=== PATIENT | female | born 1960 | race Caucasian/White ===

== ENCOUNTER → 2018-10-06 14:25 | Outpatient (CLI) | payer OTHER, SELFPAY ==
--- NOTE | 2018-10-06 14:30 | XR_ITS ---
XR shoulder RT min 2V HISTORY: ITS.REASON: RT SHOULDER PAIN X 3WKS,NO INJURY ORDERING PHYSICIAN: Doug Montalvo MD PATIENT AGE: 57 years Comparison: None FINDINGS: No fracture or dislocation. No lytic or blastic change. There is normal mineralization. The joint spaces are well-preserved. No significant degenerative/arthritic changes. No erosive changes evident. IMPRESSION: Negative, no acute finding
== END ==
PROVIDERS: PCP Family Medicine; Visit Provider Family Medicine
DX: M25.511 Pain in right shoulder (principal)
CPT/HCPCS: 73030

== ENCOUNTER → 2018-11-05 15:19 | Outpatient (CLI) | payer OTHER, SELFPAY ==
--- NOTE | 2018-11-05 15:22 | CT_ITS ---
CT lung screening EXAM: CT LUNG LOW DOSE WO CONTRAST HISTORY: ITS.REASON: H/O NICOTINE DEPENDENCE ORDERING PHYSICIAN: Doug Montalvo MD PATIENT AGE: 57 years COMPARISON: none TECHNIQUE: The exam was performed on a GE Light Speed [address] scanner using 2.90 mGy CTDI. A low dose helical CT CHEST was performed on a multi-detector scanner. All CT scans at the facility use one or more dose reduction, viz: automated exposure control, ma/kV adjustment per patient size (including targeted exams where dose is matched to indication, i.e. head), or iterative reconstruction technique. The LDCT was performed in a facility that meets the criteria for the screening program. Data regarding this exam was submitted to ACR which is an approved registry. The order for this exam indicates that it came as a result of a lung cancer screening counseling shard decision-making visit that included all the elements required of such a visit including smoking cessation. The radiologist interpreting this exam meets the CMS criteria for the LDCT lung cancer screening program. The exam is reported using the Lung-RADS classification scale and reported to the ACR registry. NOTE: This study was performed for the specific purposes of lung cancer screening and is not an alternative to diagnostic chest CT. RADIATION DOSE: CTDI vol(CT dose Index-volume) = 2.90mG DLP (Dose Length Product) = 98.47 mGcm FINDINGS: There are multiple noncalcified nodules in both right and left lungs measuring 4 mm in the right upper lobe anteriorly, 3 mm right middle lobe anteriorly, 6 mm right lower lobe laterally 6 mm left lower lobe in the CP angle, 4 mm left lower lobe posteriorly, 4 mm left lower lobe posteriorly. There is fairly extensive centrilobular emphysema with COPD IMPRESSION: 1. Lung RADS Category: 3, probably benign 2. Other findings: COPD, centrilobular emphysema RECOMMENDATIONS: 6 monthd LDCT follow-up
--- NOTE | 2018-11-05 15:22 | MM_ITS ---
MM Dig screening mamm BI w/CAD ORDERING PHYSICIAN : Doug Montalvo MD PATIENT AGE: 57 years GENDER: Female COMPARISON: April 2010 bilateral mammogram. October 2004 film screen mammogram INDICATION: Routine screening. No hormones. No new complaints. Family history. Paternal grandmother with breast cancer TECHNIQUE: Standard CC and MLO images were obtained. R2 CAD reviewed. FINDINGS: Minimal residual fibroglandular elements in both breast with minor asymmetry . Slight regression of fibroglandular elements since 2009. No new dominant mass nor suspicious mass. No particularly suspicious calcifications. RIGHT BREAST:No significant new areas concern. Follow-up one year recommended. LEFT BREAST:No significant new areas of concern. Follow-up one year recommended Tiny faint grouped microcalcifications the lateral left breast, but these were actually seen in 2009 & have not changed significantly.- Can be followed.. IMPRESSION: No new areas of significant concern. .. Bilateral follow-up in one year recommended. BI-RADS Category: 2 Benign Finding(s) RECOMMENDED FOLLOW-UP: 1YR 1 YEAR FOLLOW-UP (A letter has been sent to the patient regarding results of the study.)
== END ==
PROVIDERS: PCP Family Medicine; Visit Provider Family Medicine
DX: Z12.2 Encounter for screening for malignant neoplasm of respiratory organs (principal); Z87.891 Personal history of nicotine dependence; Z12.31 Encounter for screening mammogram for malignant neoplasm of breast
CPT/HCPCS: 77067

== ENCOUNTER → 2020-04-11 13:19 | Outpatient (CLI) | payer OTHER, SELFPAY ==
--- NOTE | 2020-04-11 13:22 | MM_ITS ---
PROCEDURE: MM DIG SCREENING MAMM BI W/CAD Digital Breast Tomosynthesis Included CLINICAL INDICATION: SCREENING There is a history of breast cancer patient's paternal grandmother. COMPARISON: MG DIGMAMMDX MAMMOGRAM DX-[facility] HAND N/C from 11/28/2004 MG DMSB DIGITAL MAMM-SCREEN BILATERAL from 05/25/2010 MG DIG MAMM-SCREEN OMAYRA from 11/05/2018 TECHNIQUE: Standard CC and MLO images and 3D Tomosynthesis was obtained. R2 CAD reviewed. FINDINGS: The breasts are composed primarily of fat with mild to moderate scattered fibroglandular densities throughout each breast. There are couple of benign-appearing microcalcifications left breast. There is no suspicious lesion in either breast and no suspicious microcalcifications. IMPRESSION: Fibrofatty parenchyma with no suspicious lesions seen BI-RAD Category: 2 Benign Finding(s) FOLLOW-UP: 1YR 1 Year Follow-up (A letter has been sent to the patient regarding results of the study.) Dictated by: Dr. Maurizio Diaz MD 04/14/2020 12:34 Dr. Maurizio Diaz MD in [place] 04/14/2020 12:34
== END ==
PROVIDERS: PCP Family Medicine; Visit Provider Family Medicine
DX: Z12.31 Encounter for screening mammogram for malignant neoplasm of breast (principal)
CPT/HCPCS: 77063; 77067

== ENCOUNTER 2020-11-22 12:16 | Emergency (ER) | payer OTHER, SELFPAY ==
[2020-11-22 12:20] VITALS: BP 135/85; PULSE 82; RESP 18; TEMP 37.4; O2SAT 95; BMI 25.0
--- NOTE | 2020-11-22 12:34 | XR_ITS ---
PROCEDURE: XR RIBS RT 2V CLINICAL INDICATION: PAIN Right rib pain COMPARISON: No exams were available for comparison FINDINGS: Frontal view of the chest shows no acute finding. Three views of the right ribs show no obvious fracture, lytic change, or blastic change. There is no evidence of pneumothorax. There are degenerative changes in the lumbar spine and thoracic spine. A circular calcific density is present to the right of L3-L4 and could represent a gallstone. IMPRESSION: 1. Negative right ribs. 2. Possible cholelithiasis Dictated by: Roscoe Salinas MD 11/22/2020 12:55 Roscoe Salinas MD in [place] 11/22/2020 12:55
--- NOTE | 2020-11-22 12:37 | HMH.EDUTC ---
[facility] [place]: Rib pain Disposition: Home, Self-Care Condition on Discharge: Good Instructions: Acetaminophen (Alternative Therapy), Ibuprofen Additional Instructions: Make sure to follow up with Your Family Doctor for further evaluation and testing concerning possible gallstone seen on xray *Ibuprofen jesus 6 hours with meal as needed for pain/inflammation if your Doctor has told you that you can take it Over the counter Lidocaine patches may help with rib pain *Ice 20 minutes every 2 hours for the first 48 hours after the initial injury followed by moist heat every 20 minutes 3-4 times a day to affected area *Keep this area active, no movement leads to more stiffness, However take it easy and avoid heavy lifting pushing or pulling *Follow up with you family doctor if no improvement for further treatment Return if needed Make sure to be taking deep breaths and coughing if needed, may hold pillow over the area if your have pain this may help Straight to ER if any life threatening symptoms Referrals: Doug Montalvo MD [Primary Care Provider] - As needed Time of Disposition: 13:07 Medical Decision Making - Pedro Luis Inquiry Pt receiving controlled substance: No Pedro Luis was queried for this patient: No Vital Signs: 11/22/20 12:20 11/22/20 13:08 Temperature 99.3 F 99.3 F Temperature Source Oral Pulse Rate 82 Pulse Rate [Left Brachial] 82 Respiratory Rate 18 18 Blood Pressure 135/85 Blood Pressure [Left Arm] 135/85 Blood Pressure Mean [Left Arm] 101 Blood Pressure Source [Left Arm] Automatic Cuff Blood Pressure Position [Left Arm] Sitting 02 Sat by Pulse Oximetry 95 Oxygen Delivery Method Room Air - Radiology Data #1 Image(s): Chest (ribs right) Image Reviewed: Yes I have reviewed radiologist's interpretation 1. Negative right ribs. 2. Possible cholelithiasis [facility] [place] - General Stated complaint: rt side muscle pain Time Seen by Provider: 11/22/20 12:37 Mode of Arrival: Ambulatory Source of Information: Patient Limitations: No Limitations Description of Symptoms (Recalled from Triage Doc. 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 PATIENT WENT TO CATCH THE WOMAN AND FELT A PAIN TO HER RIGHT SIDE/RIBS. 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 Friday when elderly lady was falling out of her chair and she went to catch her States that she felt a sharp pain in her right ribs States that ever since she has been having pain in her ribs with movement and with deep breaths States that today she was still hurting so she came in - Related Data Home Medications Medication Instructions Recorded Confirmed Celecoxib [Celebrex 200mg cap] 200 mg PO DAILY 11/22/20 11/22/20 Fluoxetine HCl [Prozac] 40 mg PO DAILY 11/22/20 11/22/20 Rosuvastatin Calcium [Crestor 10mg 10 mg PO DAILY 11/22/20 11/22/20 Tablets] Allergies Allergy/AdvReac Type Severity Reaction Status Date / Time No Known Allergies Allergy Verified 03/05/18 14:27 - Worker's Comp Is this a Worker's Comp case?: No [facility] History - Hepatitis A Screen Drug use history?: No High risk sexual behaviors?: No History of sexually transmitted infection?: No Currently employed?: No Childcare worker?: No Do you have indoor plumbing?: Yes Do you have electricity?: Yes Attestation statement:: This patient has been screened for Hepatitis A risk factors. I have reviewed the patient's past medical history: Yes Laterality Cases: Bilateral: Tonsillectomy - Social History Smoking Status: Current every day smoker Tobacco Type: cig
[2020-11-22 13:08] VITALS: BP 135/85; PULSE 82; RESP 18; TEMP 37.4; O2SAT 95
== END 2020-11-22 13:11 | disposition home or self-care (01) ==
PROVIDERS: Emergency Provider Nurse Practitioner; PCP Family Medicine
DX: S20.211A Contusion of right front wall of thorax, initial encounter (principal); W50.0XXA Accidental hit or strike by another person, initial encounter; Y92.018 Other place in single-family (private) house as the place of occurrence of the external cause; F17.210 Nicotine dependence, cigarettes, uncomplicated
CPT/HCPCS: 71100; 99202; G0463

== ENCOUNTER 2021-03-14 10:19 | Emergency (ER) | payer OTHER, SELFPAY ==
[2021-03-14 10:28] VITALS: BP 143/98; PULSE 80; RESP 16; TEMP 36.7; O2SAT 98; BMI 25.0
[2021-03-14 10:33] VITALS: BP 143/98; PULSE 80; RESP 16; TEMP 36.6; O2SAT 98; BMI 25.1
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
[2021-03-14 11:10] VITALS: BP 143/98; PULSE 80; RESP 18; TEMP 36.6
== END 2021-03-14 11:21 | disposition home or self-care (01) ==
PROVIDERS: Emergency Provider Nurse Practitioner; PCP Family Medicine
DX: T22.111A Burn of first degree of right forearm, initial encounter (principal); X12.XXXA Contact with other hot fluids, initial encounter; Y92.010 Kitchen of single-family (private) house as the place of occurrence of the external cause; F17.210 Nicotine dependence, cigarettes, uncomplicated
CPT/HCPCS: 99202; G0463

== ENCOUNTER → 2021-04-03 12:48 | Outpatient (CLI) | payer OTHER, SELFPAY ==
--- NOTE | 2021-04-03 12:55 | XR_ITS ---
PROCEDURE: XR KNEE LT 3V CLINICAL INDICATION: LT KNEE PAIN COMPARISON: No exams were available for comparison FINDINGS: No fracture or dislocation. No lytic or blastic change. There is normal mineralization. Minimal osteoarthritic change medial compartment. Other findings:Vascular calcification of the distal SFA. IMPRESSION: Minimal osteoarthritic change medial compartment Dictated by: Roscoe Salinas MD 04/04/2021 14:00 Roscoe Salinas MD in [place] 04/04/2021 14:00
== END ==
PROVIDERS: PCP Family Medicine; Visit Provider Family Medicine
DX: M25.562 Pain in left knee (principal)
CPT/HCPCS: 73562

== ENCOUNTER → 2021-06-19 08:52 | Outpatient (CLI) | payer OTHER, SELFPAY | PROVIDERS: Visit Provider Nurse Practitioner | DX: Z20.822 Contact with and (suspected) exposure to COVID-19 (principal) | CPT/HCPCS: C9803; U0003; U0005 ==

== ENCOUNTER 2021-07-02 11:47 | Emergency (ER) | payer OTHER, SELFPAY ==
[2021-07-02 13:16] VITALS: BP 155/92; PULSE 92; RESP 19; TEMP 36.9; O2SAT 98; BMI 25.0
[2021-07-02 13:25] LABS: UTC Influenza A Antigen Negative (Negative)
[2021-07-02 13:26] LABS: UTC Influenza B Antigen Negative (Negative)
[2021-07-02 13:29] LABS: Strep Scrn Group A (Rapid) Negative (Negative)
--- NOTE | 2021-07-02 13:48 | HMH.EDUTC ---
[facility] [place]ression: Exposure to COVID-19 virus Sinusitis Qualifiers: Sinusitis location: unspecified location Chronicity: acute Recurrence: non-recurrent Qualified Code(s): J01.90 - Acute sinusitis, unspecified Disposition: Home, Self-Care Condition on Discharge: Good Instructions: DI for Sinusitis, DI for COVID-19 (Suspected or Confirmed ), Preventing the Spread of Coronavirus Discharge Instructions Additional Instructions: Drink plenty of fluids. Take tylenol or ibuprofen for pain or fever. Take the medications as directed. Follow up with your regular doctor. GO TO THE ER FOR ANY WORSENING SYMPTOMS Quarantine until you know the results of your covid-19 test. Notify your school or workplace of your results and follow their instructions regarding return to work/school. Don't start the oral steroids until tomorrow, since you had the shot here today. The cough medication (promethazine dm) will make you drowsy, so don't drive or operate heavy machinery after taking it. Prescriptions: Promethazine/Dextromethorphan [Promethazine-Dm Syrup] 5 ml PO Q6HP PRN #240 ml PRN Reason: Cough Transmission Status: Received by [facility] Amoxicillin/Potassium Clav [Augmentin 875-125 Tablet] 1 tab PO Q12H 10 Days #20 tab Transmission Status: Received by [facility] predniSONE [Deltasone 10mg tablet] 10 mg PO DAILY 9 Days #21 tab Transmission Status: Received by [facility] Referrals: Doug Montalvo MD [Primary Care Provider] - Forms: Work/School Release Time of Disposition: 14:30 Medical Decision Making - Medical Records Medical records reviewed: No: I reviewed the patient's medical records. - Pedro Luis Inquiry Pt receiving controlled substance: No Vital Signs: 07/02/21 13:16 07/02/21 14:40 Temperature 98.4 F 98.4 F Temperature Source Oral Oral Pulse Rate 92 H Pulse Rate [Right Brachial] 92 H Respiratory Rate 19 19 Blood Pressure 152/98 H Blood Pressure [Right Arm] 155/92 H Blood Pressure Mean [Right Arm] 113 Blood Pressure Source Automatic Cuff Blood Pressure Source [Right Arm] Automatic Cuff 02 Sat by Pulse Oximetry 98 Oxygen Delivery Method Room Air Room Air - Lab Data Lab results reviewed: Yes: I reviewed the patient's lab results. Lab Results 07/02/21 13:10: Group A Strep Rapid Negative 07/02/21 13:12: Influenza Type A Ag Negative, Influenza Type B Ag Negative Orders (Tests/Meds): ED MEDICATIONS Discontinued Medications Generic Name Dose Route Start Last Admin Trade Name Shazia PRN Reason Stop Dose Admin Ceftriaxone Sodium 1 gm 07/02/21 14:14 07/02/21 14:23 Ceftriaxone 1gm Vial IM 07/02/21 14:15 1 gm ONCE ONE Administration Lidocaine HCl 0 ml 07/02/21 14:14 07/02/21 14:24 Lidocaine 1% 5ml Pf Vial IM 07/02/21 14:15 5 ml ONCE ONE Administration Methylprednisolone Sodium Succinate 125 mg 07/02/21 14:14 07/02/21 14:23 Methylprednisolone Sod Succ 125mg Vial IM 07/02/21 14:15 125 mg ONCE ONE Administration ORDERS Category Date Time Status Strep Screen Confirmation Stat Micro 07/02/21 13:10 [place] [facility] [place] - General Stated complaint: head congestion,headache Time Seen by Provider: 07/02/21 13:48 Mode of Arrival: Ambulatory Source of Information: Patient Limitations: No Limitations Description of Symptoms (Recalled from Triage Doc. by RN): SEEN PCP ABOUT A MONTH AGO AND WAS TREATED W/ STEROIDS AND ABX. STATES SYMPTOMS IMPROVED SLIGHTLY BUT ONCE MEDS WERE COMPLETE SYMPTOMS HAVE GOTTEN WORSE. C/O HEAD CONGESTION, ARIZMENDI AND NON-PROD COUGH HEENT Symptoms (Recalled from RN notes): Yes Resp Symptoms (Recalled from RN notes): Yes Skin Symptoms (Recalled from RN notes): No MS Symptoms (Recalled from RN notes): No Functional Status (Recalled from RN notes): N/A - History of Present Illness Provider Complaint: She states that for the past 2 weeks she has had sinus con
[2021-07-02 14:40] VITALS: BP 152/98; PULSE 92; RESP 19; TEMP 36.9; O2SAT 98
== END 2021-07-02 14:40 | disposition home or self-care (01) ==
PROVIDERS: Emergency Provider Nurse Practitioner Family; PCP Family Medicine
DX: J01.90 Acute sinusitis, unspecified (principal); Z20.822 Contact with and (suspected) exposure to COVID-19; E78.5 Hyperlipidemia, unspecified; F17.210 Nicotine dependence, cigarettes, uncomplicated
CPT/HCPCS: 87430; 87804; 96372; 99202; C9803; G0463; J0696; U0003; U0005

== ENCOUNTER → 2021-10-24 13:06 | Outpatient (CLI) | payer OTHER, SELFPAY ==
--- NOTE | 2021-10-24 13:11 | XR_ITS ---
FINAL REPORT CLINICAL HISTORY: knee pain COMPARISON: April 03, 2021 FINDINGS: 4 views of the left knee were obtained. There is no acute fracture or dislocation. There are mild degenerative changes. There are mild vascular calcifications. IMPRESSION: Mild degenerative change. Reviewed, Interpreted and Dictated by Ruben Alonso III, MD Transcribed by Ferny De La Vega Authenticated and [facility]
== END ==
PROVIDERS: PCP Family Medicine; Visit Provider Orthopaedic Surgery
DX: M25.562 Pain in left knee (principal)
CPT/HCPCS: 73564

== ENCOUNTER → 2021-10-29 15:10 | Outpatient (CLI) | payer OTHER, SELFPAY ==
--- NOTE | 2021-10-29 15:10 | MR_ITS ---
FINAL REPORT CLINICAL HISTORY: knee pain. intermittent knee swelling. medial sided knee pain. instability in knee. FINDINGS: Multiplanar MR imaging of the right knee was performed without contrast. There is a partial tear of the posterior root of the medial meniscus. A fluid collection is seen between the medial collateral ligament and medial meniscus which may represent parameniscal or ganglion cyst. The lateral meniscus is intact. The anterior and posterior cruciate ligaments are intact. The medial collateral ligament and lateral ligamentous complex are intact. The patellar and quadriceps tendons are intact. There is no evidence of fracture. There is mild to moderate chondromalacia. A small joint effusion is seen. The musculature is intact. No soft tissue mass or cyst is identified. IMPRESSION: Partial tear of the posterior root of the medial meniscus with 38 mm fluid collection between the medial meniscus and medial collateral ligament which may represent parameniscal or ganglion cyst. Small joint effusion. Mild to moderate chondromalacia. Reviewed, Interpreted and Dictated by Ruben Alonso III, MD Transcribed by Niki Doty Authenticated and [facility]
== END ==
PROVIDERS: PCP Family Medicine; Visit Provider Orthopaedic Surgery
DX: M17.12 Unilateral primary osteoarthritis, left knee (principal)
CPT/HCPCS: 73721

== ENCOUNTER 2021-12-03 08:22 | Emergency (ER) | payer OTHER, SELFPAY ==
[2021-12-03 08:43] VITALS: BP 151/82; PULSE 88; RESP 16; TEMP 36.9; O2SAT 96; BMI 25.0
[2021-12-03 08:53] LABS: Influenza A, PCR Not Detected (NotDetected); Influenza B, PCR Not Detected (NotDetected)
--- NOTE | 2021-12-03 08:57 | HMH.EDUTC ---
[facility] [place]ression: Exposure to COVID-19 virus Disposition: Home, Self-Care Condition on Discharge: Good Instructions: DI for Cough -- Adult, DI for COVID-19 (Suspected or Confirmed ), Preventing the Spread of Coronavirus Discharge Instructions Additional Instructions: *Monitor Temp, Over the counter Motrin or Tylenol as directed/as needed Tylenol every 4 hours and Motrin every 6 hours (as long as your family doctor has told you that you can take it) for fever or pain. and straight to ER if unable to lower temp less than 101.0 after medication given *Warm salt water gargles may help to soothe the throat *Throat Lozenges *Warm fluids like tea with honey may help to soothe the throat *Sleep elevated *Humidifier/Vaporizer Over the counter Robitusin may help with cough Follow up IMMEDIATELY for new or worsening symptoms or no Noticeable improvement over the next 48-72 hours. 911 for difficulty breathing or swallowing You were tested for today for COVID19 your test result should be back in the next 24-48 hours, you may check your results on the [facility] [employer] [facility] Portal for your results Make sure to take your Vitamins Vit. C Vit D and Zinc if you can take them Referrals: Doug Montalvo MD [Primary Care Provider] - As needed Forms: Work/School Release Time of Disposition: 09:02 Medical Decision Making - Pedro Luis Inquiry Pt receiving controlled substance: No Pedro Luis was queried for this patient: No Vital Signs: 12/03/21 08:43 Temperature 98.5 F Temperature Source Oral Pulse Rate [Left] 88 Respiratory Rate 16 Blood Pressure [Right Arm] 151/82 H Blood Pressure Mean [Right Arm] 105 02 Sat by Pulse Oximetry 96 Orders (Tests/Meds): ORDERS Category Date Time Status Rapid PCR Covid and Flu A/B Stat Lab 12/03/21 08:32 Received [facility] [place] - General Stated complaint: covid test Time Seen by Provider: 12/03/21 08:57 Description of Symptoms (Recalled from Triage Doc. by RN): patient comes in for covid test. patient states she has dry cough. patient was exposed by coworker HEENT Symptoms (Recalled from RN notes): No Resp Symptoms (Recalled from RN notes): Yes Skin Symptoms (Recalled from RN notes): No MS Symptoms (Recalled from RN notes): No Functional Status (Recalled from RN notes): n/a - History of Present Illness Provider Complaint: Patient states that she was recently exposed to someone that was positive for COVID at work States that she has been having a dry cough and runny nose States that several of her other coworkers tested positive so she came in to get checked out - Related Data Home Medications Medication Instructions Recorded Confirmed Celecoxib [Celebrex 200mg cap] 200 mg PO DAILY 11/22/20 12/03/21 Rosuvastatin Calcium [Crestor 10mg 10 mg PO DAILY 11/22/20 12/03/21 Tablets] Allergies Allergy/AdvReac Type Severity Reaction Status Date / Time No Known Allergies Allergy Verified 12/03/21 08:52 - Worker's Comp Is this a Worker's Comp case?: No [facility] History - Hepatitis A Screen Attestation statement:: This patient has been screened for Hepatitis A risk factors. I have reviewed the patient's past medical history: Yes Laterality Cases: Bilateral: Tonsillectomy - Social History Smoking Status: Current every day smoker Tobacco Type: cigarettes Alcohol Intake: never Occupational Status: employed Housing: house ROS Obtained: Yes All systems reviewed & no additional complaints, Yes Systems reviewed as appropriate & no additional complaints - Constitutional Constitutional: Reports system reviewed and no additional complaints, except as docu, Reports body ache, Reports chills - ENT Ears, Nose, Mouth, and Throat: Reports system reviewed and no additional complaints, except as docu, Reports nasal discharge - Cardiovascular Cardiovascular: Reports system reviewed and no additional complaints, except as docu - Respiratory Respiratory: Reports sy
[2021-12-03 09:00] VITALS: BP 151/82; PULSE 88; RESP 16; TEMP 36.9
[2021-12-03 09:30] LABS: Coronavirus 19, PCR Detected (NotDetected)
== END 2021-12-03 09:13 | disposition home or self-care (01) ==
PROVIDERS: Emergency Provider Nurse Practitioner; PCP Family Medicine
DX: U07.1 COVID-19 (principal)
CPT/HCPCS: 99212; C9803; G0463; U0003; U0005

== ENCOUNTER → 2022-02-28 11:08 | Outpatient (CLI) | payer OTHER, SELFPAY ==
[2022-02-28 11:28] LABS: Microscopic, Urine URINE MICROSCOPIC (MICROSCOPIC)
--- NOTE | 2022-02-28 11:50 | XR_ITS ---
FINAL REPORT TECHNIQUE: Chest PA & Lateral CLINICAL HISTORY: pre op, NICOTINE USE COMPARISON: November 22, 2020 FINDINGS: 2 views of the chest were performed. The heart size is normal. The mediastinum is within normal limits. There is no acute cardiopulmonary process. There are no pleural effusions. There is no pneumothorax. The bony thorax appears intact. IMPRESSION: No acute cardiopulmonary process. Reviewed, Interpreted and Dictated by Ruben Alonso III, MD Transcribed by Ferny De La Vega Authenticated and [facility]
[2022-02-28 12:17] LABS: Basophils # 0.2 K/mm3 (0-0.2); Basophils % 2.4 % (0.1-2.0); Eosinophils # 0.2 K/mm3 (0.0-0.4); Eosinophils % 2.1 % (0.1-12.0); Hematocrit 51.1 % (37.0-47.0); Hemoglobin 16.4 g/dL (12.2-16.2); Lymphocytes # 1.9 K/mm3 (0.7-4.5); Lymphocytes % 22.5 % (10-50); Mean Corpuscular Hemoglobin 31.6 pg (27.0-31.2); Mean Corpuscular Volume 98.7 fl (81-99); Monocytes # 0.6 K/mm3 (0.1-1.0); Monocytes % 6.7 % (1.7-9.3); Neutrophils # 5.5 K/mm3 (1.8-7.8); Neutrophils % 66.2 % (37.0-80.0); Platelet Count 267 K/mm3 (142-424); Red Blood Count 5.18 M/mm3 (4.20-5.40); Red Cell Distribution Width 13.5 % (11.5-17.5); White Blood Count 8.3 K/mm3 (4.8-10.8)
[2022-02-28 12:33] LABS: Chloride 101 mmol/L (98-107); Potassium 4.4 mmoL/L (3.5-5.1); Sodium 141 mmol/L (136-145)
[2022-02-28 12:36] LABS: Alanine Aminotransferase 17 U/L (12-78); Albumin Level 4.2 g/dl (3.5-5.0); Albumin/Globulin Ratio 1.8 (1.1-1.8); Alkaline Phosphatase 92 U/L (38-126); Anion Gap 12.4 mEq/L (5-15); Aspartate Amino Transferase 29 U/L (14-36); Blood Urea Nitrogen 25 mg/dl (7-17); Carbon Dioxide 32 mmol/L (22.0-30.0); Estimated Glomerular Filt Rate 56 ml/min (>60); GFR (African American) 68 ML/MIN (>60); Globulin 2.4 g/dL (1.3-3.2); Total Protein,Serum 6.6 g/dl (6.3-8.2)
[2022-02-28 12:37] LABS: Calcium 9.5 mg/dl (8.4-10.2); Glucose 84 mg/dl (74-100)
[2022-02-28 12:41] LABS: Bilirubin,Total < 0.1 mg/dl (0.2-1.3)
--- NOTE | 2022-02-28 13:01 | ECG_ITS ---
APPROVED REPORT Exam: Resting ECG HR:72 bpm ECG Measurements Heart Rate 72 AXES HI 166 P 63 QRSd 100 QRS 31 QT 423 T 42 QTc 447 Conclusion SINUS RHYTHM INCOMPLETE RIGHT BUNDLE BRANCH BLOCK [90+ ms QRS DURATION, TERMINAL R IN V1/V2, 40+ ms S IN I/aVL/V4/V5/V6] BORDERLINE ECG UNCONFIRMED REPORT Electronically signed by : Td Espinosa MD 03/02/2022 17:42:45
[2022-02-28 14:07] LABS: Appearance,Urine CLEAR (Clear); Bilirubin,Urine Negative (Negative); Blood, Urine TRACE-L (Negative); Color,Urine YELLOW (Yellow); Glucose,Urine (UA) Negative (Negative); Ketones,Urine Negative (Negative); Leukocyte Esterase,Urine Negative (Negative); Nitrate,Urine Negative (Negative); Protein,Urine Negative (Negative); Specific Gravity, Urine >= 1.030 (1.005-1.030); Urobilinogen,Urine 0.2 EU/dl (0.2)
[2022-02-28 14:08] LABS: Squamous Epithelial Cell,Urine Occasional #/hpf (0-5); WBC,Urine Occasional #/hpf (0-3)
== END ==
PROVIDERS: PCP Family Medicine; Visit Provider Orthopaedic Surgery
DX: Z01.818 Encounter for other preprocedural examination (principal); M17.12 Unilateral primary osteoarthritis, left knee
CPT/HCPCS: 36415; 71046; 80053; 81001; 85025; 93005

== ENCOUNTER → 2022-03-02 09:25 | Outpatient (CLI) | payer OTHER, SELFPAY | PROVIDERS: PCP Family Medicine; Visit Provider Orthopaedic Surgery | DX: Z01.812 Encounter for preprocedural laboratory examination (principal); Z20.822 Contact with and (suspected) exposure to COVID-19; M25.562 Pain in left knee | CPT/HCPCS: C9803; U0003; U0005 ==

== ENCOUNTER 2022-03-05 09:31 | Day surgery (SDC) | payer OTHER, SELFPAY ==
[2022-03-01 11:12] VITALS: BMI 25.0
[2022-03-05] VITALS (12 sets, daily range): BP systolic 99–157; BP diastolic 61–96; PULSE 62–87; RESP 16–17; TEMP 36.6–43; O2SAT 92–99
--- NOTE | 2022-03-05 11:09 | P.PN_ITS ---
[facility] Medical History (Updated 03/05/22 @ 10:08 by Trinidad Khalil RN) History of COVID-19 Hyperlipidemia Surgical History History of section History of hysterectomy History of tonsillectomy Family History Father Family history of cancer Mother Family history of myocardial infarction Social History Smoking Status: Current every day smoker tobacco type: cigarettes alcohol intake: never substance use type: denies use current occupational status: employed Travel in the last 8 weeks: None housing: house current occupational exposures/hazards: No [facility] Anesthesia Checklist Patient Identification Patient Identification: Arm Band Structural Data Admitted From: Home Planned Operative Procedure/s: Left Knee Arthroscopy, Medial Meniscectomy Consent for Planned Operative Procedure(s) Verified: Yes Verified Documents: Surgical Consent and History and Physical NPO Status Verified Time NPO: 00:00 Additional verifications Anesthesia Reactions: No Hx Blood Transfusions: No Blood Transfusion Reaction: No Airway Assessment C-Spine Mobility Assessed: Yes TMJ Mobility Assessed: Yes Dentition: Edentulous Neurological Assessment Level of Consciousness: Awake and Alert Anesthesia Plan Anesthesia Risk discussed: Yes Anesthesia Plan: Verified ASA Class: II Anesthesia Type: General
--- NOTE | 2022-03-05 11:34 | EXP.ANES.I ---
[facility] Anesthesia Record Part I Anesthesia Record I Intake, IV Amount: 600 Estimated blood loss (mL): 5 Urine output (mL): 0 Blood Pressure: 99/61 SaO2: 93 Pulse Rate: 68 Respiratory Rate: 16 Temperature: 97.9 F Patient is:: Drowsy and Stable Stable to PACU at:: 11:30
--- NOTE | 2022-03-05 11:35 | P.OP_ITS ---
Date of procedure: 03/05/22 Pre-op Diagnosis:: Left knee medial meniscus tear Post-op Diagnosis:: Left knee medial meniscus tear Procedure performed:: Left knee arthroscopy with partial medial meniscectomy Surgeon:: Blair Chung MD Lawn Care Technician(s):: None PROFESSOR OF SOCIAL WORK:: Nitin Hewitt Anesthesia: GETA and local Estimated blood loss (mL): 5 Clinical Note:: Annie is a very pleasant 61-year-old female who has been struggling with left knee pain over the past few months. She works at the [employer] at [employer]. An MRI in October revealed a posterior horn medial meniscus tear with parameniscal cyst as well as mild to moderate chondromalacia and a mild effusion. No relief with 2 cortisone injections or celecoxib. We discussed all of the risks, benefits and alternatives to left knee arthroscopy for partial medial meniscectomy and she agreed to proceed. Operative findings:: Left knee radial tear posterior horn medial meniscus with mild medial and patellofemoral chondromalacia Operative note:: The patient was seen in the preoperative holding area. The left knee was marked to confirm the correct operative site. She received Ancef 2 g IV prophylactic antibiotics within 1 hour of incision time. She was seen by anesthesia and brought back to the OR. General anesthesia was induced out difficulty. The left lower extremity was prepped and draped in usual sterile fashion. Timeout was performed to confirm left knee arthroscopy on patient Annie Marie. Made an anterolateral viewing portal with an 11 blade scalpel and arthroscope was introduced in the knee joint. I then made an anteromedial portal localizing this with a spinal needle and this incision was made with the 11 blade scalpel as well. Diagnostic arthroscopy commenced. Evaluation of the medial compartments revealed a radial tear posterior horn medial meniscus with partial tear of the root. This was treated with a straight biter as well as a 4.0 mm shaver removing approximately inner third to half of the posterior horn the medial meniscus to ellipse out the radial tear back to a smooth stable border. Some fraying at the root was debrided as well. There is no complete posterior root tear. There is some mild chondromalacia of the medial femoral condyle that was debrided with a shaver. There was no full-thickness cartilage loss. Cruciate ligaments were seen to be intact. She was placed in the [id number] position and we entered the lateral compartment. Lateral compartment revealed minimal chondromalacia and lateral meniscus was intact. Evaluation of the patellofemoral compartment revealed some grade II-III chondromalacia of the central aspect of the patella, this was debrided with a shaver back to smooth stable border. There was no full-thickness cartilage loss. Final pictures were taken and saved. Arthroscopy instruments removed from the joint. Portals were closed with 4 Monocryl subcu stitches. I injected 20 cc of half percent Naropin from the superolateral approach for local anesthetic. Sterile dressing was applied with Steri-Strips, 4 x 4's, ABDs, soft roll and an Ashish bandage. Anesthesia was reversed out difficulty and she was transferred to recovery in stable condition. All sponge and needle counts correct procedure. Postoperative plan: We will prescribe oxycodone to take as needed for pain and aspirin for DVT prophylaxis. Okay to weight-bear as tolerated with crutch assist as needed. Follow-up in the office next Friday for postoperative check Tourniquet time (min): 0 Condition: stable Disposition: PACU Specimens:: None Complications:: None
--- NOTE | 2022-03-05 13:17 | P.PNANES_ITS ---
[facility] Anesthesia Record Part II Anesthesia Record Part II Discharge Time: 12:10 Destination: Surgical Day Care (OP Surgery) PACU nurse assessment reviewed?: Yes Patient Condition:: Good Anesthesia Complications:: None Swallowing reflex intact?: Yes Cyanosis?: No Blood Pressure: 128/82 Pulse Rate: 82 Temperature: 97.9 F Mental Status: Alert & Oriented Pain level:: 3 Nausea and/or vomitting:: None Intake, IV Amount: 0
== END 2022-03-05 12:50 | disposition home or self-care (01) ==
PROVIDERS: PCP Family Medicine; Visit Provider Orthopaedic Surgery
PROC: (CPT 29870; principal; 2022-03-05 11:00)
DX: M17.12 Unilateral primary osteoarthritis, left knee; Z79.899 Other long term (current) drug therapy; S83.242A Other tear of medial meniscus, current injury, left knee, initial encounter; M22.41 Chondromalacia patellae, right knee; T14.90XA Injury, unspecified, initial encounter; F17.210 Nicotine dependence, cigarettes, uncomplicated
CPT/HCPCS: 29881; 29879; 96374; J2405

== ENCOUNTER 2023-04-18 09:08 | Emergency (ER) | payer OTHER, SELFPAY ==
[2023-04-18 09:20] VITALS: BP 106/63; PULSE 101; RESP 22; TEMP 36.6; O2SAT 95; BMI 24.3
--- NOTE | 2023-04-18 09:23 | EXP.UTC ---
Discharge Plan Disposition Patient Disposition: Home, Self-Care Condition: Good Prescriptions Prescriptions: New guaifenesin [Mucinex] 600 mg tablet extended release 12hr 600 - 1,200 mg PO BIDP PRN (Reason: Congestion) Qty: 30 0RF ciprofloxacin HCl 0.3 % drops See Rx Instructions .ROUTE .COMPLEX Qty: 5 0RF Rx Instructions: put 1 drp in left eye every 2hrs x2days; then 4 times/day x5days methylprednisolone 4 mg Tablets,Dose Pack 4 mg PO DIRECTED Qty: 21 0RF amoxicillin [amoxicillin] 875 mg tablet 875 mg PO Q12H Qty: 20 0RF No Action celecoxib 200 mg capsule 200 mg PO DAILY fluoxetine 40 mg capsule 40 mg PO DAILY cyclobenzaprine 10 mg tablet 10 mg PO DAILY Patient Comments: TAKE ONE TABLET BY MOUTH THREE TIMES DAILY MAY CAUSE DROWSINESS rosuvastatin 10 mg tablet 10 mg PO DAILY Referrals Follow up/Referrals: Doug Montalvo MD [Primary Care Provider] - See instructions Activity Restrictions/Add. Instructions Additional Instructions/Restrictions: Drink plenty of fluids. Take tylenol or ibuprofen for pain or fever. Take the medications as directed. Follow up with your regular doctor. GO TO THE ER FOR ANY WORSENING SYMPTOMS Don't start the oral steroids until tomorrow, since you had the shot here today. The cough medication (promethazine dm) will make you drowsy, so don't drive or operate heavy machinery after taking it. Clinical Impressions Clinical Impression: Otitis media, Sinusitis, Conjunctivitis of left eye Instructions Patient Instructions: Sinusitis, Conjunctivitis, DI for Sinusitis, DI for Conjunctivitis Discharge ED Provider: Wai Robertson [facility] General Stated complaint: swelling and discharge of left eye Time Seen by Provider: 04/18/23 09:22 History of Present Illness Provider Complaint: She c/o sinus congestion, left ear pain, and left eye irritation for the past 5 days. She denies any injury or foreign body to the eye. She states that in the past she has had eye irritation with sinus infections. 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 Related Data Home Medications Medication Instructions Recorded Confirmed celecoxib 200 mg capsule 200 mg PO DAILY 04/18/23 04/18/23 cyclobenzaprine 10 mg tablet 10 mg PO DAILY 04/18/23 04/18/23 fluoxetine 40 mg capsule 40 mg PO DAILY 04/18/23 04/18/23 rosuvastatin 10 mg tablet 10 mg PO DAILY 04/18/23 04/18/23 Previous Rx's Medication Instructions Recorded amoxicillin 875 mg tablet 875 mg PO Q12H #20 tabs 04/18/23 ciprofloxacin HCl 0.3 % eye drops See Rx Instructions ophthalmic 04/18/23 (eye) .COMPLEX #5 mL guaifenesin 600 mg tablet, 600 - 1,200 mg PO BIDP PRN 04/18/23 extended release 12 hr (Mucinex) Congestion #30 tabs methylprednisolone 4 mg tablets in 4 mg PO DIRECTED #21 tabs 04/18/23 a dose pack Allergies Allergy/AdvReac Type Severity Reaction Status Date / Time No Known Allergies Allergy Verified 04/12/22 09:58 [facility] Disclaimer: The information contained in this section may have been updated after the patient was seen, as this information can be updated by other users. Medical History (Updated 04/18/23 @ 09:59 by Wai Robertson APRN) Depression History of COVID-19 Hyperlipidemia Surgical History History of arthroscopy of left knee History of section History of hysterectomy History of tonsillectomy Family History Father Family history of cancer Mother Family history of myocardial infarction Social History Smoking Status: Current every day smoker tobacco type: cigarettes alcohol intake: never substance use type: denies use current occupational status: employed Travel in the last 8 weeks: None housing: house c
[2023-04-18 09:36] VITALS: BP 106/63; PULSE 101; RESP 22; TEMP 36.6; O2SAT 95
== END 2023-04-18 10:04 | disposition home or self-care (01) ==
PROVIDERS: Emergency Provider Nurse Practitioner Family; PCP Family Medicine
DX: H66.93 Otitis media, unspecified, bilateral (principal); J01.90 Acute sinusitis, unspecified; H10.32 Unspecified acute conjunctivitis, left eye; E78.5 Hyperlipidemia, unspecified; F17.210 Nicotine dependence, cigarettes, uncomplicated
CPT/HCPCS: 96372; 99212; 99214; G0463; J0696

== ENCOUNTER 2023-10-29 11:58 | Outpatient (CLI) | payer OTHER, SELFPAY ==
--- NOTE | 2023-10-29 12:01 | XR_ITS ---
FINAL REPORT CLINICAL HISTORY: right hip pain COMPARISON: None FINDINGS: 3 images of the right hip were obtained. There is no evidence of fracture or dislocation. Mild degenerative changes present bilaterally. There is no soft tissue abnormality identified. IMPRESSION: No acute bony abnormality. Reviewed, Interpreted and Dictated by Ruben Alonso III, MD Transcribed by Michelle Salmon Authenticated and [facility]
== END 2023-10-29 23:59 | disposition home or self-care (01) ==
LOC: RAD 11:58
PROVIDERS: PCP Family Medicine; Visit Provider Orthopaedic Surgery
DX: M25.551 Pain in right hip (principal)
CPT/HCPCS: 73502

== ENCOUNTER 2023-12-05 10:52 | Emergency (ER) | payer OTHER, SELFPAY ==
[2023-12-05 10:55] VITALS: BP 109/76; PULSE 119; RESP 18; TEMP 36.8; O2SAT 96; BMI 24.4
--- NOTE | 2023-12-05 11:05 | EXP.UTC ---
Discharge Plan Disposition Patient Disposition: Home, Self-Care Condition: Good Prescriptions Prescriptions: New phenazopyridine [Pyridium] 200 mg tablet 200 mg PO Q8H 2 Days Qty: 6 0RF nitrofurantoin monohyd/m-cryst [Macrobid] 100 mg Capsule 100 mg PO BID Qty: 10 0RF Rx Instructions: must administer with a meal/food No Action celecoxib 200 mg capsule 200 mg PO DAILY Patient Comments: TAKE ONE CAPSULE BY MOUTH EVERY DAY fluoxetine 40 mg capsule 40 mg PO DAILY Patient Comments: TAKE ONE CAPSULE BY MOUTH EVERY DAY rosuvastatin 10 mg tablet 10 mg PO DAILY Patient Comments: TAKE ONE TABLET BY MOUTH EVERY DAY AT BEDTIME Referrals Follow up/Referrals: Doug Montalvo MD [Primary Care Provider] - See instructions Activity Restrictions/Add. Instructions Additional Instructions/Restrictions: Drink plenty of fluids. Take tylenol or ibuprofen for pain or fever. Take the medications as directed. Follow up with your regular doctor. GO TO THE ER FOR ANY WORSENING SYMPTOMS The pyridium will make your urine turn orange, this is an expected side effect. It will stain your clothes if it comes into contact with them. We will culture the urine. That will tell what bacteria is causing your infection and which antibiotics will treat it best. Sometimes the first antibiotic we prescribe turns out to not work against different bacteria. So, make sure you follow up within 3 days if you are not getting better. Clinical Impressions Clinical Impression: UTI (urinary tract infection) Instructions Patient Instructions: Urinary Tract Infection, Urine Culture, DI for Urinary Tract Infection (UTI), Phenazopyridine Discharge ED Provider: Wai [facility] General Stated complaint: possible UTI Time Seen by Provider: 12/05/23 11:05 Related Data Home Medications Medication Instructions Recorded Confirmed celecoxib 200 mg capsule 200 mg PO DAILY 12/05/23 12/05/23 fluoxetine 40 mg capsule 40 mg PO DAILY 12/05/23 12/05/23 rosuvastatin 10 mg tablet 10 mg PO DAILY 12/05/23 12/05/23 Previous Rx's Medication Instructions Recorded nitrofurantoin 100 mg PO BID #10 caps 12/05/23 monohydrate/macrocrystals 100 mg capsule (Macrobid) phenazopyridine 200 mg tablet 200 mg PO Q8H 2 days #6 tabs 12/05/23 (Pyridium) Allergies Allergy/AdvReac Type Severity Reaction Status Date / Time No Known Allergies Allergy Verified 10/29/23 12:57 [facility] Disclaimer: The information contained in this section may have been updated after the patient was seen, as this information can be updated by other users. Medical History (Updated 12/05/23 @ 11:45 by Wai Robertson APRN) UTI (urinary tract infection) Anxiety Depression History of COVID-19 Hyperlipidemia Surgical History History of arthroscopy of left knee History of section History of hysterectomy History of tonsillectomy Family History Father Family history of cancer Mother Family history of myocardial infarction Social History Smoking Status: Current every day smoker tobacco type: cigarettes alcohol intake: never substance use type: denies use current occupational status: employed Travel in the last 8 weeks: None housing: house current occupational exposures/hazards: No ROS Obtained: Yes All systems reviewed & no additional complaints except as documented Constitutional Constitutional: Reports system reviewed and no additional complaints, except as documented, Denies chills and Denies fever(s) Eyes Eyes: Denies eye discharge ENT Ears, Nose, Mouth, and Throat: Denies dysphagia, Denies sore throat and Denies throat swelling Cardiovascular Cardiovascular: Denies chest pain and Denies dyspnea Respiratory Respiratory: Denies chest congestion, Denies cough and Denies dyspnea Gastrointestinal Gastrointestingal: Denies abdominal pain, constipation, diarrhea, dysphagia, nausea or vomiting Genitourinary Female Genitourinary: Reports as per HPI, Reports dysuria, Reports urinary frequency, Denies urinary incontinence, Reports urinary hesitancy and Reports urinary urgency Musculoskeletal Musculoskeletal: Denies arthralgias and Reports back pain Integumentary/Breasts Skin/Breast: Denies rash Neurologic Neurologic: Denies paresthesias Allergic/Immunologic Allergic/Immunologic: Denies throat swelling Physical Exam General General appearance: alert and in no apparent distress Head Head exam: atraumatic and normocephalic Eye Eye exam: Present normal appearance, PERRL and EOMI ENT ENT exam: Present normal exam, mucous membranes moist, TM's normal bilaterally and normal external ear exam Neck Neck exam: Present normal inspection, full ROM and trachea midline; Absent tenderness, meningismus or lymphadenopathy Chest Chest inspection: Present normal inspection and symmetric chest wall rise; Absent tenderness Respiratory Respiratory exam: Present normal lung sounds bilaterally; Absent respiratory distress, wheezes or stridor Cardiovascular Cardiovascular exam: Present regular rate, normal rhythm and normal heart sounds Abdominal Exam Abdominal exam: Present soft and normal bowel sounds; Absent distention, tenderness, guarding, rebound, rigidity, incision, psoas sign, obturator sign, heel tap sign, Calderon's sign, Rovsing's sign or tenderness at McBurney's Point Extremities Exam Extremities exam: Present normal inspection, full ROM and normal capillary refill; Absent tenderness, edema, joint swelling, calf tenderness or cyanosis Back Exam Back exam: Present normal inspection and full ROM; Absent tenderness, CVA tenderness (R) or CVA tenderness (L) Neurological Exam Neurological exam: Present alert, oriented X3 and normal gait Psychiatric Psychiatric exam: Present normal affect and normal mood Skin Skin exam: Present warm, dry, intact and normal color Lymphatic Lymphatic Findings: no adenopathy Medical Decision Making Medical Records Medical records reviewed: No I reviewed the patient's medical records. Pedro Luis Inquiry Pt receiving controlled substance: No Lab Data Lab results reviewed: Yes I reviewed the patient's lab results.
[2023-12-05 11:13] LABS: Apearance,Urine Cloudy (Clear); Color,Urine Yellow (Yellow); PH,Urine 5.5 (5.0-8.5)
[2023-12-05 11:14] LABS: Bilirubin,Urine 1+ (Negative); Blood, Urine 3+ (Negative); Glucose,Urine (UA) Negative (Negative); Ketones,Urine Negative (Negative); Protein,Urine 2+ (Negative); Specific Gravity, Urine >= 1.030 (1.005-1.030); UTC Leukocyte Esterase,Urine Trace (Negative); UTC Nitrate,Urine Negative (Negative); Urobilinogen,Urine 1 EU/dl (0.2)
[2023-12-05 11:46] VITALS: BP 109/76; PULSE 119; RESP 18; TEMP 36.8; O2SAT 96
--- NOTE | 2023-12-09 12:53 | PC.NURSE ---
REVIEWED URINE CULTURE WITH Savanah CRISOSTOMO APRN, NO CHANGE NEEDED
== END 2023-12-05 11:48 | disposition home or self-care (01) ==
PROVIDERS: Emergency Provider Nurse Practitioner Family; PCP Family Medicine
DX: N39.0 Urinary tract infection, site not specified (principal); B96.29 Other Escherichia coli [E. coli] as the cause of diseases classified elsewhere; R30.0 Dysuria; R35.0 Frequency of micturition
CPT/HCPCS: 81003; 87086; 87088; 87186; 99212; 99214; G0463

== ENCOUNTER 2024-01-27 13:22 | Outpatient (CLI) | payer OTHER, SELFPAY ==
--- NOTE | 2024-01-27 13:59 | ECG_ITS ---
APPROVED REPORT Exam: Resting ECG HR:64 bpm ECG Measurements Heart Rate 64 AXES MS 178 P 43 QRSd 101 QRS -22 QT 446 T 15 QTc 456 Conclusion SINUS RHYTHM Left atrial abnormality BORDERLINE LEFT AXIS DEVIATION [QRS AXIS < -20] INCOMPLETE RIGHT BUNDLE BRANCH BLOCK [90+ ms QRS DURATION, TERMINAL R IN V1/V2, 40+ ms S IN I/aVL/V4/V5/V6] BORDERLINE ECG UNCONFIRMED REPORT Electronically signed by : Td Espinosa MD 01/28/2024 08:11:27
[2024-01-27 14:03] LABS: Basophils # 0.1 K/mm3 (0-0.2); Basophils % 0.9 % (0.1-2.0); Eosinophils # 0.2 K/mm3 (0.0-0.4); Eosinophils % 1.6 % (0.1-12.0); Hematocrit 51.6 % (37.0-47.0); Hemoglobin 16.2 g/dL (12.2-16.2); Lymphocytes # 1.9 K/mm3 (0.7-4.5); Mean Corpuscular HGB Conc 31.3 g/dL (31.8-35.4); Mean Corpuscular Hemoglobin 32.8 pg (27.0-31.2); Mean Corpuscular Volume 104.5 fl (81-99); Mean Platelet Volume 8.2 fl (7.4-10.4); Monocytes # 0.7 K/mm3 (0.1-1.0); Monocytes % 7.5 % (1.7-9.3); Neutrophils % 71.1 % (37.0-80.0); Platelet Count 269 K/mm3 (142-424); Red Blood Count 4.94 M/mm3 (4.20-5.40); Red Cell Distribution Width 14.1 % (11.5-17.5); White Blood Count 9.8 K/mm3 (4.8-10.8)
[2024-01-27 14:11] LABS: Anion Gap 7.5 mEq/L (5-15); Blood Urea Nitrogen 24 mg/dl (7-17); Calcium 9.6 mg/dl (8.4-10.2); Carbon Dioxide 27 mmol/L (22.0-30.0); Chloride 110 mmol/L (98-107); Creatinine Clearance Estimated 65 mL/min (50-200); Estimated Glomerular Filt Rate 72 ml/min (>60); GFR (African American) 87 ML/MIN (>60); Glucose 117 mg/dl (74-100); Potassium 3.5 mmoL/L (3.5-5.1); Sodium 141 mmol/L (136-145)
== END 2024-01-27 23:59 | disposition home or self-care (01) ==
LOC: PREOP 13:23
PROVIDERS: Nurse Anesthetist, Certified Registered; PCP Family Medicine; Visit Provider Orthopaedic Surgery
DX: Z01.818 Encounter for other preprocedural examination (principal); M16.11 Unilateral primary osteoarthritis, right hip
CPT/HCPCS: 80048; 85025; 93005

== ENCOUNTER 2024-02-09 05:59 | Day surgery (SDC) | payer OTHER, SELFPAY ==
[2024-01-27 13:45] VITALS: BMI 25.0
[2024-02-09] MEDS: LACTATED RINGERS 1000ML 1,000 ML 25 ML IV (06:22)
[2024-02-09 06:23] VITALS: BP 169/81; PULSE 72; RESP 18; TEMP 36.7; O2SAT 98
--- NOTE | 2024-02-09 06:55 | P.PNANES_ITS ---
[facility] Disclaimer: The information contained in this section may have been updated after the patient was seen, as this information can be updated by other users. Medical History Seasonal allergies UTI (urinary tract infection) Anxiety Depression History of COVID-19 Hyperlipidemia Surgical History History of arthroscopy of left knee History of section History of hysterectomy History of tonsillectomy Family History Father Family history of cancer Mother Family history of myocardial infarction Social History Smoking Status: Current every day smoker tobacco type: cigarettes alcohol intake: never substance use type: denies use current occupational status: employed Travel in the last 8 weeks: None housing: house current occupational exposures/hazards: No [facility] Anesthesia Checklist Patient Identification Patient Identification: Arm Band and Family Structural Data Admitted From: Home Planned Operative Procedure/s: Right Hip Injection Consent for Planned Operative Procedure(s) Verified: Yes Verified Documents: Surgical Consent and History and Physical NPO Status Verified Time NPO: 00:00 Additional verifications Patient : No Anesthesia Reactions: No Hx Blood Transfusions: No Blood Transfusion Reaction: No Cephalosporin Allergy: No Previous Colonoscopy: Yes Airway Assessment Mallampati Score:: Class II C-Spine Mobility Assessed: Yes TMJ Mobility Assessed: Yes Dentition: Edentulous Neurological Assessment Level of Consciousness: Awake, Alert, Appropriate and Follows Commands Hx Seizures: No Numbness or tingling in extremities: No Anesthesia Plan Anesthesia Risk discussed: Yes ASA Class: II Anesthesia Type: MAC Preoperative Comments Pre-Operative Comments: Smoker. Acid reflux.
[2024-02-09] MEDS: LIDOCAINE 1% 10ML MDV 10 ML (07:45)
[2024-02-09] MEDS: TRIAMCINOLONE ACET 40MG/ML VIAL 80 MG (07:45)
--- NOTE | 2024-02-09 07:49 | EXP.OP.NOTE ---
Date of procedure: 02/09/24 Pre-op Diagnosis:: Right hip osteoarthritis Post-op Diagnosis:: Same Procedure performed:: Right hip injection with arthrogram x-ray guidance for needle placement Surgeon:: Abe King DO Awning Hanger Supervisor(s):: JUDY MARKETING AND OUTREACH COORDINATOR:: Wai Carranza Anesthesia: MAC Estimated blood loss (mL): 0 Operative findings:: Osteoarthritis right hip Operative note:: Patient identified preoperatively. Right hip marked with a yes and my initials. Transferred operative suite. Placed upon the radiolucent bed. Was given sedation. Right hip prepped and draped normal sterile fashion. Once prepped and draped final operative timeout performed to identify proper patient procedure and extremity. Everyone involved in the case agreed. There is no counter indications to beginning. Right hip was identified on the x-ray. X-ray guidance was used for proper trajectory of 18-gauge spinal needle directed into the hip joint. Once within the hip joint contrast was utilized to confirm proper placement within the hip capsule. X-ray and contrast confirmed proper placement within the hip capsule. The hip was then injected with 80 mg Kenalog 3 cc 1% lidocaine. Band-Aid placed. Patient awaken from sedation taken recovery in stable condition. Condition: stable Disposition: PACU Complications:: None apparent
[2024-02-09 07:53] VITALS: BP 140/75; PULSE 69; RESP 18; TEMP 36.6; O2SAT 96
--- NOTE | 2024-02-09 07:56 | XR_ITS ---
FINAL REPORT CLINICAL HISTORY: OR HIP INJECTION 0.0 MIN 0.0 mGy/min 0.83 mGy FINDINGS: FLUOROSCOPY LESS THAN 1 HOUR HISTORY: Fluoroscopy guidance. FINDINGS: Fluoroscopic guidance was provided for right hip for injection. A single spot film was obtained. A total of 0.0 minutes of fluoroscopy time were used. DAP: 0.83 mGy IMPRESSION: As above. Reviewed, Interpreted and Dictated by Lakshmi Miller MD Transcribed by Shaista Browne Authenticated and . [facility]
[2024-02-09 08:03] VITALS: BP 142/81; PULSE 68; RESP 18; O2SAT 98
[2024-02-09 08:13] VITALS: BP 142/88; PULSE 64; RESP 18; O2SAT 96
[2024-02-09 08:21] VITALS: BP 136/75; PULSE 62; RESP 18; O2SAT 97
== END 2024-02-09 08:21 | disposition home or self-care (01) ==
PROVIDERS: PCP Family Medicine; Visit Provider Orthopaedic Surgery
PROC: (CPT 27095; principal; 2024-02-09 07:30)
DX: M16.11 Unilateral primary osteoarthritis, right hip (principal); F17.210 Nicotine dependence, cigarettes, uncomplicated
CPT/HCPCS: 27095; 73502; 76000; 80048; 85025; J3301; J7120

== ENCOUNTER 2024-12-06 10:09 | Outpatient (CLI) | payer MEDICARE, SELFPAY ==
--- NOTE | 2024-12-06 10:12 | MM_ITS ---
PROCEDURE INFORMATION: Exam: MG Bilateral Screening 3D Mammography Exam date and time: 12/06/2024 10:55 AM Age: 64 years old Clinical indication: Screening examination TECHNIQUE: Imaging protocol: Bilateral Screening tomosynthesis and 2D mammography including computer-aided detection (CAD) when performed. COMPARISON: 1. MG MM DIG SCREENING MAMM BI W/CAD 04/11/2020 1:26 PM 2. MG DIG MAMM-SCREEN OMAYRA 11/05/2018 3:44 PM FINDINGS: MAMMOGRAPHY: Breast composition: There are scattered areas of fibroglandular density. Mass: None. Architectural distortion: None. Calcifications: No suspicious calcifications. Asymmetric density: None. Skin thickening: None. Axillary adenopathy: None. IMPRESSION: No mammographic evidence of malignancy. Annual screening is recommended unless otherwise clinically indicated. ASSESSMENT: BI-RADS Category 1: Negative.
--- NOTE | 2024-12-06 10:12 | CT_ITS ---
FINAL REPORT CLINICAL HISTORY: lung cancer screening, smokes 1 pack per day x 50 yrs, hx of lung cancer in sister COMPARISON: None FINDINGS: CT CHEST LOW DOSE SCREENING HISTORY: Screening exam for lung cancer. DOSE: CTDI vol: 2.90 mGy, DLP: 112.29 mGy*cm TECHNIQUE: Axial CT without IV contrast administration using low dose protocol. This study was performed with techniques to keep radiation doses as low as reasonably achievable, (ALARA). Individualized dose reduction techniques using automated exposure control or adjustment of mA and/or kV according to the patient's size were employed. There is an irregular subpleural density in the posterior right upper lobe measuring 19 x 12 mm. There is a smoothly marginated peripheral nodule in the right lower lobe measuring 4 mm on image 57 of series 4. Advanced is edematous disease is noted. No pleural or pericardial effusion is seen. No adenopathy or mass lesion is present. Small hiatal hernia. 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 IMPRESSION: Right upper lobe density could be neoplastic or postinflammatory. LUNG RADS CATEGORY 4B RECOMMENDATION: PET-CT correlation Reviewed, Interpreted and Dictated by Zahra Pradhan MD Transcribed by Shaista Browne Authenticated and [facility]
--- OUTSIDE RECORDS SUMMARY | 2024-12-06 10:15 | XMS_ITS ---
Author Organization Unknown Medications Date Medication Dosage DosageUnit StartDate StopDate StopReason Active DoseQuantity DoseUnit Dispense DispenseUnit Refills NdcCode DrugCode PharmacyId IsPrescription MappedMedication Srcstatus 10/01 00:00 :00 Celecoxib 200 mg Capsule 1 10 0 77588 002 410 Start 10/01 00:00 :00 Celecoxib 200 mg Capsule 0 30 Capsule 0 [id number] 410 Stop 10/01 00:00 :00 FLUoxetine HCl 40 mg Capsule 1 10 Capsule 0 17325037 910 Start 10/01 00:00 :00 FLUoxetine HCl 40 mg Capsule 0 30 Capsule 0 84821997 910 Stop 10/01 00:00 :00 Rosuvastati n Calcium 10 mg Tablet 1 10 0 502 05432 705 Start 10/01 00:00 :00 Rosuvastati n Calcium 10 mg Tablet 0 30 Tablet 0 44283739 705 Stop
== END 2024-12-06 23:59 | disposition home or self-care (01) ==
LOC: RAD 10:10
PROVIDERS: PCP Family Medicine; Visit Provider Family Medicine
DX: Z12.31 Encounter for screening mammogram for malignant neoplasm of breast (principal); R92.323 Mammographic fibroglandular density, bilateral breasts; R91.8 Other nonspecific abnormal finding of lung field; Z87.891 Personal history of nicotine dependence
CPT/HCPCS: 71271; 77063; 77067

== ENCOUNTER 2025-01-18 13:08 | Outpatient (CLI) | payer MEDICARE, SELFPAY ==
--- OUTSIDE RECORDS SUMMARY | 2024-11-16 06:30 | XMS_ITS ---
Author Organization [facility] Address [address] [phone] Care Team Providers Care Solar Electric Practitioner Name Role Phone Sherice Montalvo Primary Care [...] Interpretation:normal Performing Lab: Notes/Report: Test performed by [employer], [facility] , [address], [place] [address] Phi Gordillo MD, Cone Runner CLIA: [id number] Sodium 141 135-145 mmol/L Potassium 3.8 3.5-5.3 [...] 97 Performing Lab: Notes/Report: Test performed by [employer], [address] , [address] , [place] [address] Phi Gordillo MD, Cone Runner CLIA: [id number] Cholesterol 189 <200 mg/dL Triglycerides 147 <150 [...] Status W/U Status Risk Notes Problem Sacroiliitis (63101571) Sacroiliitis (M46.1) Active confirmed Vital Signs Blood pressure systolic 120 mm Hg 11/17/19 25 Blood pressure diastolic 80 mm Hg 025 Heart Rate 67 /min 11/16/2024 Height 67.50 in 11/16/2024 Weight 149 lbs 11/16/2024 BMI 22.99 kg/m2 11/16/2024 Encounters Encounter Location Date Provider Diagnosis [facility] [address] [facility] [address] [place] [phone] 11/16/2024 Sherice Montalvo Depression with anxi ety [...] Notes * MAY DUNHAM:1960 (64 yo F)Acc No.[id number]:11/16/2024 Progress Notes Patient: GIAN ALONZO Provider: Sherice Montalvo M.D. :1960 A ge:63 Y S ex:Female Date:11/16/2024 Address:[address] [place] [address] Subjective: * Chief Complaints: * 1 . [...] Tobacco Addiction, Cologuard - negative 2019 at [facility]. * Surgical History: T onsillectomy , , Total Hysterectomy 2007, Ablation of lumbar nerves , C-scope - polyps 2012, Arthroscopic Knee Surgery on Left Knee 03/05/2022. * Hospitalization/Major Diagno stic Procedure: S jodyer Bite- [facility] [place] 03/[place]. * Family History: F [...] use: yes. Marital Status: and remarried. 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 Alcohol: No. * Medications: T aking Multivitamin [...] S acroiliitis - M46.1 8 . B [place] 22.0-22.9, adult - Z68.22 Plan: * Treatment: [...] EDT > no auth required; CPT code [id number], Eliana 11/17/2024 09:17:30 AM EDT > faxed to [facility] Comfort Medrano 12/07/2024 09:48:13 AM EDT > [...] 09:1 7:40 AM EDT > faxed to [facility] Linda Olvera 12/14/2024 03:52:27 PM EDT > Patient informed of normal results. 6.?Sacroiliitis? Notes: Right SI joint injected with Depo-Medrol 60 mg and lidocaine 1/2 cc?? * Procedure Codes: G 2211 Complex e/[place] [address] CBC WITH AUTO DIFF, G8420 BMI<30 AND >=22 CALC & DOCU, G8783 BP SCR PRFRM RCMDD DEFIND SCR INTVL, G8752 MOST RECENT SYSTOLIC BP < 140MM HG, G8754 MOST RECENT DIASTOLIC BP < 90MM HG * Follow Up: 6 Months * Images: Billing Information: * Visit Code: 47247 Office Visit, Est Pt., Level 4. * Procedure Codes: G2211 Complex e/[place]. [address] CBC WITH AUTO DIFF. G8420 BMI<30 AND >=22 CALC & DOCU. G8783 BP SCR PRFRM RCMDD DEFIND SCR INTVL. G8752 MOST RECENT SYSTOLIC BP < 140MM HG. G8754 MOST RECENT DIASTOLIC BP < 90MM HG. * Electronic signature of Sherice Montalvo MD on 01/18/2025 at 01:18 PM EDT Sign off status: Pending * Provider: Sherice Montalvo M.D. Date: 0 11/16/2024 Generated for Chay wilkes/Jozef/Kavithasmitting on: 0 01/18/2025 01:18 PM EDT History and Physical Notes * HPI (History of Present Illness) Category Sub-Category Detail Notes Category Not es [facility]iology [facility]. Pt is fasting today Examination Category Sub-Category Detail Notes Category Not es General Examination Heart: RSR Lungs: Coarse breath sounds . No rales or wheezes. Extremities: no leg edema General Appearance: No distress at rest. Moves slowly from the chair onto the exam table with apparent pain in her lower back.
--- OUTSIDE RECORDS SUMMARY | 2024-11-22 04:58 | XMS_ITS ---
Author Organization [facility] Address [facility]0 [facility] [address] [place] [phone] Care Team Providers Care Building Cleaner Name Role Phone Sherice Montalvo Primary Care Provider REASON FOR VISIT due bone den Encounters Encounter Location Date Provider [facility] [address] [place] [phone] 11/22/2024 Sherice Montalvo Screening for osteoporosis Z13.820 Assessments Encounter Date Diagnosis (ICD Code) Assessment Notes Treatment Notes Treatment Clinical Notes Section Notes 11/22/2024 Screening for osteoporosis (ICD-10 - Z13.820) Plan Of Treatment Pending Test Test Name Order Date Bone density 11/22/2024 Progress Notes * GIAN DUNHAMDOB:1960 (64 yo F)Acc No.[id number]:11/22/2024 Patient: Matthew KILLIANWAYNE GIAN :1960 A ge:64 Y S ex:Female Address:[address] [place] [address], [address] Subjective: * Chief Complaints: * D ue bone den * Medical History: * Surgical History: * Hospitalization/Major Diagno stic Procedure: * Medications: Objective: * Vitals: * Physical Examination: Assessment: * Assessment: 1. S creening for osteoporosis - Z13.820 (Primary) Plan: * Treatment: * Procedure Codes: * true * Date: Generated for Printi ng/Faxing/eTransmitting on: 0 01/18/2025 01:18 PM EDT
--- OUTSIDE RECORDS SUMMARY | 2024-12-07 05:47 | XMS_ITS ---
Author Organization [facility] Address [address] [place] [address] [place] [phone] Care Team Providers Care Internet Researcher Name Role Phone Sherice Montalvo Primary Care Provider Reason For Referral Reason Lung mass on CT scan Diagnosis 1 Lung mass (R91.8) Referral Organization [facility] Referring Provider First Name Sherice Solo Referring Provider Last Name Katia Referring Provider Speciality Family Pra ctice Referred Organization [facility] OP Referred Provider Ava Jimenez Referred Address [address] [place], [place] [address],[phone], Referred Provider Specialty Pulmonary Di seases General Notes Eliana Ridley 2024 09:43:21 AM > fax[facility] to [facility] PulmonologyKeyana Brynn 12/13/2024 10:39:17 AM > 12/27/2024 at 10:20am Referral Priority Routine REASON FOR VISIT abnormal LDCT Encounters Encounter Location Date Provider Diagnosis [facility] [address] [place] [address] [address] [place] [phone] 12/07/2024 Sherice Montalvo Lung mass R91 .8 Assessments Encounter Date Diagnosis (ICD Code) Assessment Notes Treatment Notes Treatment Clinical Notes Section Notes 12/07/2024 Lung mass (ICD-10 - R91.8) Plan Of Treatment Referrals Referral Date Details 12/07/2024 12/07/2024, Lung mas s on CT scan, Ava Jimenez [address] [place] [address], [place], [phone], Progress Notes * GIAN DUNHAMDOB:1960 (64 yo F)Acc No.[id number]:12/07/2024 Patient: GIAN ALONZO :1960 A ge:64 Y S ex:Female Address:[address] [place] [address] Subjective: * Chief Complaints: * a bnormal LDCT * Medical History: * Surgical History: * Hospitalization/Major Diagno stic Procedure: * Medications: Objective: * Vitals: * Physical Examination: Assessment: * Assessment: 1. L alvin mass - R91.8 (Primary) Plan: * Treatment: * Procedure Codes: * true * Date: Generated for Chay wilkes/Jozef/eTransmitting on: 0 01/18/2025 01:19 PM EDT Consultation Request Notes Referral Date Referring Provider Referred Provider Not david 12/07/2024 Sherice Montalvo [facility] Lung m ass on CT scan
--- NOTE | 2025-01-18 13:00 | CA_ITS ---
APPROVED REPORT EXAM: Comprehensive 2D, Doppler, and color-flow Echocardiogram Game Breeding Farm Manager: Elva Irwin RVT Ht: 5 ft 7 in Wt: 144lbs BSA: 1.76 BP: 123/86 mmHg Indications: PRE-OP,DYSPENA 2D Dimensions LA Volume 34.70 mL LA Volume Index 19.72 mL/m2 (M/F) 16-34 M-Mode Dimensions RVDd 2.32 cm (0.9-2.6) LA Diam 3.18 cm (1.9-4.0) LVDd 3.59 cm (3.5-5.7) LVDs 2.62 cm (3.5-5.7) IVSd 1.54 cm (0.6-1.1) PWd 0.67 cm (0.6-1.1) EF (Teich) 53.60% FS 27.00% EDV (Teich) 54.10 mL TAPSE 1.83 (<1.7) ESV (Teich) 25.10 mL LV Diastology E Decel Time 187 (160-240 msec) E/A Ratio 0.5 Aortic Valve ALISON Index 1.16 cm2/m2 AoV Peak Eze. 175.0 (50-130 cm/s) AO Peak GR. 12.30 mmHg AO Mean GR. 7.30 (<5 mmHg) AO VTI 31.4 (18-25 cm) ALISON (VTI) 2.09 (2.5-4.5 cm2) Mitral Valve MV E Max Eze. 57.0 (40-130 cm/s) MV A Velocity 109.0 (40-130 cm/s) E/A Ratio 0.53 MV PHT 55.0 ms Pulmonary Valve PV Peak Velocity 63.0 (50-150 cm/s) Tricuspid Valve TR P. Velocity 223.00 cm/s RAP Estimate 8.00 mmHg RVSP 27.80 mmHg Left Ventricle The left ventricle is normal size. Left ventricular systolic function is normal. The left ventricular ejection fraction is within the normal range. There is increased left ventricular wall thickness. There is normal LV segmental wall motion. Transmitral Doppler flow pattern suggests impaired LV relaxation. LVEF is 55% Right Ventricle The right ventricle is normal size. The right ventricular systolic function is normal. Atria The left atrium is mildly dilated. The right atrium is mildly dilated. There is no color Doppler evidence of interatrial shunt. Aortic Valve The aortic valve is mildly thickened. There is no hemodynamically significant aortic valvular stenosis. No aortic regurgitation is present. Mitral Valve The mitral valve is normal in structure. No evidence of mitral valve stenosis. Mild mitral regurgitation is present. Tricuspid Valve The tricuspid valve leaflets are thin and pliable. Mild tricuspid regurgitation. RVSP is 20-25 mmHg. Pulmonic Valve The pulmonary valve is grossly normal in structure. Trace pulmonic valve regurgitation is present. Great Vessels The aortic root is normal in size. IVC is normal in size and collapses >50% with inspiration. Pericardium There is a small sized, anterior pericardial effusion present. The effusion appears partially loculated. The largest pocket measures 0.3 cm in diastole. No echo indications of tamponade. Other Information Study Quality: Fair Conclusion Normal biventricular systolic function. Biatrial dilation. Mild MR, mild TR Small sized, anterior pericardial effusion present. The effusion appears partially loculated. The largest pocket measures 0.3 cm in diastole. No echo indications of tamponade. Electronically signed by : Maryan Jarvis MD 01/18/2025 14:14:15
--- OUTSIDE RECORDS SUMMARY | 2025-01-18 13:19 | XMS_ITS | Patient Health Record ---
Author Organization [facility] Address [address] [id number] Care Team Providers Care Last Turner Name Role Phone Sherice Montalvo Primary Care Provider Allergies Allergen (clinical drug ingredient) Drug/Non Drug Allergy documented on EMR Reaction Allergy Type Onset Date Status atorvastatin Atorvastatin rash Drug Allergy A ctive Results Component Value Reference Range Notes CT Scan : Chest, low dose Reviewed date:12/08/2024 10:44:30 PM Interpretation:Abnormal Performing Lab: Notes/Report: Abnormal Mammogram Reviewed date:12/14/2024 03:52:41 PM Interpretation:Negative Performing Lab: Notes/Report: Negative result negative P-Lipid Panel Reviewed date:11/18/2024 08:48:26 AM Interpretation:LDL 97 Performing Lab: Notes/Report: Test performed by [facility] [address] [place] [address] , [address], [place] [address] Phi Gordillo MD, Fittings Tightener CLIA: [id number] Cholesterol 189 <200 mg/dL Triglycerides 147 <150 [...] Results: 97 Units: mg/dL % Change: - P-Comprehensive Metabolic Pa magdalena (CMP) Reviewed date:11/18/2024 08:48:26 AM Interpretation:normal Performing Lab: Notes/Report: [facility] performed by [facility], [address] , [facility], [place] [address] Phi Gordillo MD, Fittings Tightener CLIA: [id number] Sodium 141 135-145 mmol/L Potassium 3.8 3.5-5.3 [...] 0.6 <0.2-1.2 mg/dL A/G Ratio 2.1 1.1-2.5 CBC Venipuncture (in house) Reviewed date:11/18/2024 08:48:26 [...] - 38 platlet 245 100 - 400 Reason For Referral Reason Lung mass on CT scan Diagnosis 1 Lung mass (R91.8) Referral Organization [facility] Referring Provider First Name Sherice Solo Referring Provider Last Name Katia Referring Provider Speciality Family Kia goodsno Referred Organization [facility] OP Referred Provider Ava Jimenez Referred Address [address] [place], [place] [id number], Referred Provider Specialty Pulmonary Di seases General Notes Eliana Ridley 2024 09:43:21 AM > faxed to [facility] PulmonologyKeyana Brynn 12/13/2024 10:39:17 AM > 12/27/2024 at 10:20am Referral Priority Routine Medications Medication SIG (Take, Route, Frequency, Duration) Notes Start Date End Date Status FLUoxetine HCl 40 mg 1 capsule Orally [...] e a day; Duration: 30 day(s) Active Rosuvastatin Calcium 10 mg 1 tablet Oral ly At Bed Time Active FLUoxetine HCl 20 MG 1 capsule Orally On ce a day; Duration: 30 day(s) 10/09/2023 Not-Taking Cyclobenzaprine HCl 10 MG 1 tab(s) Orall y Three times a day 03/20/2023 Active Meloxicam 15 MG 1 tablet Orally Once a day; Duration: 30 days 11/16/2024 Active Immunizations Vaccine Route Administration Date Status Comme nts COVID 19 Moderna Unknown 05/30/2020 Administered COVID 19 Moderna Unknown 06/26/2020 Administered COVID 19 Moderna Unknown 06/27/2020 Administered COVID 19 Moderna Unknown 03/29/2021 Administered Social History Tobacco Use: Social History Observation Description Date Details (start date - stop date) Current Smoker NA - NA CURRENT TOBACCO USE: Question Answer Notes Are you a: current smoker How often do you smoke cigarettes? every day How many cigarettes a day do you smoke? 11-20 Problems Problem Type SNOMED Code ICD Code Onset Dates Problem Status W/U Status Risk Notes Problem Mixed anxiety and depressive disorder (482451093) Depression with anxiety (F41.8) Active confirmed Problem Primary generalised osteoarthritis (601193709) Primary generalized (osteo)arthritis (M15.0) Active confirmed Problem Nicotine dependence (66101878) Personal history of nicotine dependence (Z87.891) Active confirmed Problem Sacroiliitis (88695540) Sacroiliitis (M46.1) Active confirmed Problem Localized, primary osteoarthritis of the hand (251223875) Primary osteoarthritis of right hand (M19.041) Active confirmed Problem Dyslipidemia (138544903) Dyslipidemia (E78.5) Active confirmed Problem Tobacco use (964032694) Tobacco use disorder (F17.200) Active confirmed Problem Allergic rhinitis (96196048) Allergic rhinitis, unspecified seasonality, unspecified trigger (J30.9) Active confirmed Vital Signs Heart Rate 67 /min 11/16/2024 Blood pressure diastolic 80 mm Hg 11/16/2024 Height 67.50 in 11/16/2024 Blood pressure systolic 120 mm Hg 11/16/2024 Weight 149 lbs 11/16/2024 BMI 22.99 kg/m2 11/16/2024 Encounters Encounter Location Date Provider Diagnosis [facility] [address] [place] [id number] 11/16/2024 R Edil Montalvo Depression with anxi ety F41.8 ; Tobacco use disorder F17.200 ; Dyslipidemia E78.5 ; Personal history of nicotine dependence Z87.891 ; Primary generalized (osteo)arthritis M15.0 ; Screening for breast cancer Z12.39 ; Sacroiliitis M46.1 and BMI 22.0-22.9, adult Z68.22 [facility] [address] [facility] [address] [place] [id number] 10/12/2024 R Edil Balleet [facility] [address] [place] [id number] 11/18/2024 R Edil Balleet [facility] [address] [facility] [address] [place] [id number] 11/22/2024 R Edil Katia Screening for osteoporosis Z13.820 [facility] [address] [facility] [address] [place] [id number] 12/07/2024 R Edil Katia Lung mass R91.8 Assessments Encounter Date Diagnosis (ICD Code) Assessment Notes Treatment Notes Treatment Clinical Notes Section Notes 11/16/2024 Depression with anxiety (ICD-10 - F41.8) 11/16/2024 Tobacco use disorder (ICD-10 - F17.200) 12/07/2024 Lung mass (ICD-10 - R91.8) 11/22/2024 Screening for osteoporosis (ICD-10 - Z13.820) 11/16/2024 Dyslipidemia (ICD-10 - E78.5) 11/16/2024 Personal history of nicotine dependence (ICD-10 - Z87.891) 11/16/2024 Primary generalized (osteo)arthritis (ICD-10 - M15.0) 11/16/2024 Screening for breast cancer (ICD-10 - Z12.39) 11/16/2024 Sacroiliitis (ICD-10 - M46.1) Right SI joint injected with Depo-Medrol 60 mg and lidocaine 1/2 cc 11/16/2024 BMI 22.0-22.9, adult (ICD-10 - Z68.22) Plan Of Treatment Pending Test Test Name Order Date Bone density 11/22/2024 Insurance Providers Payer Name Payer Address Payer Phone Subscriber Number Group Number Insured Name Patient Relationship to Insured Coverage Start Date Coverage End Date MEDICARE PART B [address] [address] [place] [id number] GIAN DUNHAM Self - patient is the insured Aetna Senior Supplemental [id number] GIAN DUNHAM Self - patient is the insured Medications Administered Medication Instructions Date of Administration Dosage Notes Depo- Medrol 40 mg/ml 03/27/2021 1.5 mL Depo- Medrol 40 mg/ml 10/09/2023 1.5 mL Medical (General) History Medical History History ICD Code Anxiety Depression 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
== END 2025-01-18 23:59 | disposition home or self-care (01) ==
LOC: RT 13:09
PROVIDERS: PCP Family Medicine; Visit Provider Physician Assistant
DX: Z01.810 Encounter for preprocedural cardiovascular examination (principal); I08.1 Rheumatic disorders of both mitral and tricuspid valves; I31.39 Other pericardial effusion (noninflammatory); R94.31 Abnormal electrocardiogram [ECG] [EKG]
CPT/HCPCS: 93306

== ENCOUNTER 2025-01-19 12:57 | Outpatient (CLI) | payer MEDICARE, SELFPAY ==
--- OUTSIDE RECORDS SUMMARY | 2024-11-16 06:30 | XMS_ITS ---
Author Organization [facility] Address [address] [id number] Care Team Providers Care Vocational Rehabilitation Specialist Name Role Phone Sherice Montalvo Primary Care Provider Allergies Allergen (clinical drug ingredient) Drug/Non Drug Allergy documented on EMR Reaction Allergy Type Onset Date Status atorvastatin Atorvastatin rash Drug Allergy A ctive Results Component Value Reference Range Notes CBC Venipuncture (in house) Reviewed date:11/18/2024 08:48:26 AM Interpretation:Normal Performing Lab: Notes/Report: Normal wbc 8.5 3.5 - 10 lymph 16.0 15 - 50 mid 5.8 2 - 15 gran 78.2 35 - 80 rbc 5.56 3.5 - 5.5 hgb 17.5 11.5 - 16.5 hct 54.1 35 - 55 mcv 97.4 75 - 100 mch 31.4 25 - 35 mchc 32.2 31 - 38 platlet 245 100 - 400 P-Comprehensive Metabolic Pa magdalena (CMP) Reviewed date:11/18/2024 08:48:26 AM Interpretation:normal Performing Lab: Notes/Report: Test performed by [facility] , [address], [place] [address] Phi Gordillo MD, Lapping Machine Operator CLIA: [id number] Sodium 141 135-145 mmol/L Potassium 3.8 3.5-5.3 mmol/L Chloride 103 97-108 mmol/L CO2 28 20-32 mmol/L Glucose 88 65-99 mg/dL BUN 17 8-23 mg/dL Creatinine 0.64 0.50-1.00 mg/dL Calcium 9.5 8.6-10.4 mg/dL eGFR by Creatinine 98 >59 mL/min/1.73m2 Protein 6.6 6.0-8.3 g/dL Albumin 4.5 3.5-5.3 g/dL Alkaline Phosphatase 98 35-121 IU/L ALT (SGPT) 13 <5-47 IU/L AST (SGOT) 20 <5-40 IU/L Bilirubin, Total 0.6 <0.2-1.2 mg/dL A/G Ratio 2.1 1.1-2.5 P-Lipid Panel Reviewed date:11/18/2024 08:48:26 AM Interpretation:LDL 97 Performing Lab: Notes/Report: Test performed by [facility], [address] , [address] , [place] [address] Phi Gordillo MD, Lapping Machine Operator CLIA: [id number] Cholesterol 189 <200 mg/dL Triglycerides 147 <150 mg/dL HDL Cholesterol 63 >39 mg/dL Cholesterol / HDL Ratio 3.00 0.00-4.44 Ratio Non-HDL Cholesterol 126 <130 mg/dL LDL Cholesterol (Calculation) 97 <130 mg/dL LDL Cholesterol Levels* Less than 100 mg/dL Optimal 100 to 129 mg/dL Near Optimal/ Above Optimal 130 to 159 mg/dL Borderline High 160 to 189 mg/dL High 190 mg/dL and above Very High * Categories as recommended by the 2004 ATPIII guidelines LDL/HDL Ratio 1.5 <3.3 Ratio LDL Cholesterol Patient History Test Date: 11/16/2024 LDL Results: 97 Units: mg/dL % Change: - Mammogram Reviewed date:12/14/2024 03:52:41 PM Interpretation:Negative Performing Lab: Notes/Report: Negative result negative CT Scan : Chest, low dose Reviewed date:12/08/2024 10:44:30 PM Interpretation:Abnormal Performing Lab: Notes/Report: Abnormal REASON FOR VISIT checkup with labs, Needs labs, mammogram, bone density screening, colon cancer screening, & lowdose chest CT Medications Medication SIG (Take, Route, Frequency, Duration) Notes Start Date End Date Status Rosuvastatin Calcium 10 mg 1 tablet Oral ly At Bed Time Active FLUoxetine HCl 20 MG 1 capsule Orally On ce a day; Duration: 30 day(s) 10/09/2023 Not-Taking Cyclobenzaprine HCl 10 MG 1 tab(s) Orall y Three times a day 03/20/2023 Active Meloxicam 15 MG 1 tablet Orally Once a day; Duration: 30 days 11/16/2024 Active FLUoxetine HCl 40 mg 1 capsule Orally On ce a day Active Combivent Respimat 20-100 MCG/ACT 1 puff(s) inhaled 4 times a day 12/05/2021 Active Meclizine HCl 25 MG 1 tab(s) orally 3 times a day 04/26/2022 Active Multivitamin - 1 tab(s) orally once a day; Duration: 30 day(s) Active Vitamin B 12 500 MCG 1 tab(s) orally onc e a day; Duration: 30 day(s) Active Social History Tobacco Use: Social History Observation Description Date Details (start date - stop date) Current Smoker NA - NA CURRENT TOBACCO USE: Question Answer Notes Are you a: current smoker How often do you smoke cigarettes? every day How many cigarettes a day do you smoke? 04-14 Problems Problem Type SNOMED Code ICD Code Onset Dates Problem Status W/U Status Risk Notes Problem Sacroiliitis (89218340) Sacroiliitis (M46.1) Active confirmed Vital Signs Blood pressure systolic 120 mm Hg 11/17/19 25 Blood pressure diastolic 80 mm Hg 025 Heart Rate 67 /min 11/16/2024 Height 67.50 in 11/16/2024 Weight 149 lbs 11/16/2024 BMI 22.99 kg/m2 11/16/2024 Encounters Encounter Location Date Provider Diagnosis [place] [address] [facility] [address] [phone] 11/16/2024 Sherice Montalvo Depression with anxi ety F41.8 ; Tobacco use disorder F17.200 ; Dyslipidemia E78.5 ; Personal history of nicotine dependence Z87.891 ; Primary generalized (osteo)arthritis M15.0 ; Screening for breast cancer Z12.39 ; Sacroiliitis M46.1 and BMI 22.0-22.9, adult Z68.22 Assessments Encounter Date Diagnosis (ICD Code) Assessment Notes Treatment Notes Treatment Clinical Notes Section Notes 11/16/2024 Depression with anxiety (ICD-10 - F41.8) 11/16/2024 Tobacco use disorder (ICD-10 - F17.200) 11/16/2024 Dyslipidemia (ICD-10 - E78.5) 11/16/2024 Personal history of nicotine dependence (ICD-10 - Z87.891) 11/16/2024 Primary generalized (osteo)arthritis (ICD-10 - M15.0) 11/16/2024 Screening for breast cancer (ICD-10 - Z12.39) 11/16/2024 Sacroiliitis (ICD-10 - M46.1) Right SI joint injected with Depo-Medrol 60 mg and lidocaine 1/2 cc 11/16/2024 BMI 22.0-22.9, adult (ICD-10 - Z68.22) Plan Of Treatment Medication Medication Name Sig Start Date Stop Date Notes Rosuvastatin Calcium 10 mg 1 tablet Orally At Bed Time Celecoxib 200 mg 1 capsule Orally Onc e a day with food Meloxicam 15 MG 1 tablet Orally Once a day; Duration: 30 days 11/16/2024 FLUoxetine HCl 40 mg 1 capsule Orally Once a day Treatment Notes Assessment Notes Sacroiliitis Right SI joint injec caden with Depo-Medrol 60 mg and lidocaine 1/2 cc Next Appt Details Follow Up: 6 Months, Reason: Progress Notes * MAY DUNHAM:1960 (64 yo F)Acc No.[id number]:11/16/2024 Progress Notes Patient: GIAN ALONZO Provider: Sherice Montalvo M.D. :1960 A ge:63 Y S ex:Female Date:11/16/2024 Address:[address] [place] [address] Subjective: * Chief Complaints: * 1 . Checkup with labs. 2. Needs labs, mammogram, bone density screening, colon cancer screening, & low dose chest CT. * HPI: C ardiology: Dyslipidemia P t presents today for a check-up. Pt is fasting today. * ROS: D ERMATOLOGY: no R gomez. n o H itz. G ASTROENTEROLOGY: no N ausea. n o V omiting. U ROLOGY: no D ifficulty urinating. n o B lood in urine. 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 * Surgical History: T onsillectomy , , Total Hysterectomy 2007, Ablation of lumbar nerves , C-scope - polyps 2012, Arthroscopic Knee Surgery on Left Knee 03/05/2022. * Hospitalization/Major Diagno stic Procedure: S jodyer Bite- [facility] 03/2019. * Family History: F ather: alive 91 yrs, colon cancer, heart disease, aneurysm, anxiety. [...] use: yes. Marital Status: and remarried. 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 Alcohol: No. * Medications: T aking Multivitamin [...] day , Taking Celecoxib 200 mg Capsule 1 capsule Orally Once a day with food , Taking FLUoxetine HCl 40 mg Capsule 1 capsule Orally Once a day , Taking Rosuvastatin Calcium 10 mg Tablet 1 tablet Orally At Bed Time , Not-Taking FLUoxetine HCl 20 MG Capsule 1 capsule Orally Once a day , Medication List reviewed and reconciled with the patient * Allergies: A torvastatin: rash - Allergy. Objective: * Vitals: W t: 149, Temp: 97.7, BP: 120/80, HR: 67, Nurse: DIONNA, Ht: 67.50, BMI:22.99. * Examination: G eneral Examination: General Appearance: N o distress at rest. Moves slowly from the chair onto the exam table with apparent pain in her lower back.. H eart: R SR.?Lungs: C oarse breath sounds. No rales or wheezes.. E xtremities: n o leg edema. Assessment: * Assessment: 1. D epression with anxiety - F41.8 (Primary) 2 . T obacco use disorder - F17.200 3 . D yslipidemia - E78.5 4 . P ersonal history of nicotine dependence - Z87.891 5 . P rimary generalized (osteo)arthritis - M15.0 6. S creening for breast cancer - Z12.39 7 . S acroiliitis - M46.1 8 . B ID 22.0-22.9, adult - Z68.22 Plan: * Treatment: 2. D yslipidemia Refill Rosuvastatin Calcium Tablet, 10 mg, 1 tablet, Orally, At Bed Time, 30, Refills 5. L AB: P-Comprehensive Metabolic Panel (CMP) (Collection Date & Time - 11/16/2024 09:59 AM) n ormal Value Reference Range A /G Ratio 2.1 1.1-2.5 - * A lbumin 4.5 3.5-5.3 - g/dL * A lkaline Phosphatase 98 35-121 - IU/L * A LT (SGPT) 13 <5-47 - IU/L * A ST (SGOT) 20 <5-40 - IU/L * B ilirubin, Total 0.6 <0.2-1.2 - mg/dL * B UN 17 8-23 - mg/dL * C alcium 9.5 8.6-10.4 - mg/dL * C hloride 103 97-108 - mmol/L * C O2 28 20-32 - mmol/L * C reatinine 0.64 0.50-1.00 - mg/dL * G lucose 88 65-99 - mg/dL * P otassium 3.8 3.5-5.3 - mmol/L * S odium 141 135-145 - mmol/L * P rotein 6.6 6.0-8.3 - g/dL * e GFR by Creatinine 98 >59 - mL/min/1.73m2 * Sherice Montalvo 11/18/2024 08:48:12 AM EDT > See phone encounter ?LAB: P-Lipid Panel (Collection Date & Time - 11/16/2024 09:59 AM)?LDL 97* Value Reference Range C holesterol / HDL Ratio 3.00 0.00-4.44 - Ratio * C holesterol 189 <200 - mg/dL * H DL Cholesterol 63 >39 - mg/dL * L DL Cholesterol (Calculation) 97 <130 - mg/d L * L DL/HDL Ratio 1.5 <3.3 - Ratio * N on-HDL Cholesterol 126 <130 - mg/dL * T riglycerides 147 <150 - mg/dL * Sherice Montalvo 11/18/2024 08:48:12 AM EDT > See phone encounter ?LAB: CBC Venipuncture (in house) (Collection Date & Time - 11/16/2024)? Normal* Value Reference Range w bc 8.5 3.5 - 10 * l ymph 16.0 15 - 50 * m id 5.8 2 - 15 * g ran 78.2 35 - 80 * r bc 5.56 3.5 - 5.5 * h gb 17.5 11.5 - 16.5 * h ct 54.1 35 - 55 * m cv 97.4 75 - 100 * m ch 31.4 25 - 35 * m chc 32.2 31 - 38 * p latlet 245 100 - 400 * Leonela Pate 11/16/2024 12: 01:50 PM EDT > Sherice Montalvo 11/18/2024 08:48:12 AM EDT > See phone encounter 3.?Personal history of nicotine dependence?Imaging: CT Scan : Chest, low dose (Performed Date - 12/06/2024)?Abnormal* Eliana Ridley 11/17/2024 09:1 0:33 AM EDT > no auth required; CPT code [id number], Eliana 11/17/2024 09:17:30 AM EDT > faxed to [facility] Comfort Medrano 12/07/2024 09:48:13 AM EDT > See phone encounter 4.?Primary generalized (osteo)arthritis? Stop Celecoxib Capsule, 200 mg, 1 capsule, Orally, Once a day with food;?Start Meloxicam Tablet, 15 MG, 1 tablet, Orally, Once a day, 30 days, 30, Refills 5.?? 5.?Screening for breast cancer?Imaging: Mammogram (Performed Date - 12/06/2024)?Negative* Value Reference Range r esult negative * Eliana Ridley 11/17/2024 09:1 7:40 AM EDT > faxed to [facility] Linda Olvera 12/14/2024 03:52:27 PM EDT > Patient informed of normal results. 6.?Sacroiliitis? Notes: Right SI joint injected with Depo-Medrol 60 mg and lidocaine 1/2 cc?? * Procedure Codes: G 2211 Complex e/[place], [address] CBC WITH AUTO DIFF, G8420 BMI<30 AND >=22 CALC & DOCU, G8783 BP SCR PRFRM RCMDD DEFIND SCR INTVL, G8752 MOST RECENT SYSTOLIC BP < 140MM HG, G8754 MOST RECENT DIASTOLIC BP < 90MM HG * Follow Up: 6 Months * Images: Billing Information: * Visit Code: 91262 Office Visit, Est Pt., Level 4. * Procedure Codes: G2211 Complex e/[place]. [address] CBC WITH AUTO DIFF. G8420 BMI<30 AND >=22 CALC & DOCU. G8783 BP SCR PRFRM RCMDD DEFIND SCR INTVL. G8752 MOST RECENT SYSTOLIC BP < 140MM HG. G8754 MOST RECENT DIASTOLIC BP < 90MM HG. * Electronic signature of Sherice Montalvo MD on 01/19/2025 at 01:03 PM EDT Sign off status: Pending * Provider: Sherice Montalvo M.D. Date: 0 11/16/2024 Generated for Chay wilkes/Jozef/Kavithasmitting on: 0 01/19/2025 01:03 PM EDT History and Physical Notes * HPI (History of Present Illness) Category Sub-Category Detail Notes Category Not es [facility]. Pt is fasting today Examination Category Sub-Category Detail Notes Category Not es General Examination Heart: RSR Lungs: Coarse breath sounds . No rales or wheezes. Extremities: no leg edema General Appearance: No distress at rest. Moves slowly from the chair onto the exam table with apparent pain in her lower back.
--- OUTSIDE RECORDS SUMMARY | 2024-11-22 04:58 | XMS_ITS ---
Author [facility] Address [facility] [address] [place] [phone] Care Team Providers Care Coding Spec Name Role Phone Sherice Montalvo Primary Care Provider REASON FOR VISIT due bone den Encounters Encounter Location Date [facility] [address] [place] [phone] 11/22/2024 Sherice Montalvo Screening for osteoporosis Z13.820 Assessments Encounter Date Diagnosis (ICD Code) Assessment Notes Treatment Notes Treatment Clinical Notes Section Notes 11/22/2024 Screening for osteoporosis (ICD-10 - Z13.820) Plan Of Treatment Pending Test Test Name Order Date Bone density 11/22/2024 Progress Notes * GIAN DUNHAMDOB:1960 (64 yo F)Acc No.[id number]:11/22/2024 Patient: Matthew KILLIANWAYNE GIAN :1960 A ge:64 Y S ex:Female Address:[address] [place] [address], [address] Subjective: * Chief Complaints: * D ue bone den * Medical History: * Surgical History: * Hospitalization/Major Diagno stic Procedure: * Medications: Objective: * Vitals: * Physical Examination: Assessment: * Assessment: 1. S creening for osteoporosis - Z13.820 (Primary) Plan: * Treatment: * Procedure Codes: * true * Date: Generated for Printi ng/Faxing/eTransmitting on: 0 01/19/2025 01:04 PM EDT
[2025-01-19 07:33] VITALS: BMI 22.5
--- OUTSIDE RECORDS SUMMARY | 2025-01-19 13:04 | XMS_ITS | Patient Health Record ---
Author Organization [facility] Address [address] [phone] Care Team Providers Care Newspaper Editor Name Role Phone Sherice Montalvo Primary Care Provider Allergies Allergen (clinical drug ingredient) Drug/Non Drug Allergy documented on EMR Reaction Allergy Type Onset Date Status atorvastatin Atorvastatin rash Drug Allergy A ctive Results Component Value Reference Range Notes P-Comprehensive Metabolic Pa magdalena (CMP) Reviewed date:11/18/2024 08:48:26 AM Interpretation:normal Performing Lab: Notes/Report: Test performed by [facility] [address] [place] [address] , [address], [place] [address] Phi Gordillo MD, Corn Shucker CLIA: [id number] Sodium 141 135-145 mmol/L Potassium 3.8 3.5-5.3 [...] - 38 platlet 245 100 - 400 P-Lipid Panel Reviewed date:11/18/2024 08:48:26 AM Interpretation:LDL 97 Performing Lab: Notes/Report: Test performed by [email or web address], [address] , [address] , [place] [address] Phi Gordillo MD, Corn Shucker CLIA: [id number] Cholesterol 189 <200 mg/dL Triglycerides 147 <150 [...] 10:44:30 PM Interpretation:Abnormal Performing Lab: Notes/Report: Abnormal Reason For Referral Reason Lung mass on CT scan Diagnosis 1 Lung mass (R91.8) [facility] Referring Provider First Name Sherice Solo Referring Provider Last Name Katia Referring Provider Speciality [facility] Referred Organization [facility] OP Referred Provider Ava Jimenez Referred Address [address] [facility] [id number], Referred Provider Specialty Pulmonary Di seases General Notes Eliana Ridley 2024 09:43:21 AM > faxed to [facility] PulmonologyKeyana Brynn 12/13/2024 10:39:17 AM > 12/27/2024 [...] Notes Problem Mixed anxiety and depressive disorder (292061331) Depression with anxiety (F41.8) Active confirmed Problem Primary generalised osteoarthritis (403121005) Primary generalized (osteo)arthritis (M15.0) Active confirmed Problem Nicotine dependence (43781110) Personal history of nicotine dependence (Z87.891) Active confirmed Problem Sacroiliitis (66581819) Sacroiliitis (M46.1) Active confirmed Problem Localized, primary osteoarthritis of the hand (437094690) Primary osteoarthritis of right hand (M19.041) Active confirmed Problem Dyslipidemia (632262877) Dyslipidemia (E78.5) Active confirmed Problem Tobacco use (954703638) Tobacco use disorder (F17.200) Active confirmed Problem Allergic rhinitis (63609628) Allergic rhinitis, unspecified seasonality, unspecified trigger (J30.9) Active confirmed Vital Signs Heart Rate 67 /min 11/16/2024 Blood pressure diastolic 80 mm Hg 11/16/2024 Height 67.50 in 11/16/2024 Blood pressure systolic 120 mm Hg 11/16/2024 Weight 149 lbs 11/16/2024 BMI 22.99 kg/m2 11/16/2024 Encounters Encounter Location Date Provider Diagnosis [facility] [address] [place] [id number] 11/16/2024 R Edil Montalvo Depression with anxi ety F41.8 ; Tobacco use disorder F17.200 ; Dyslipidemia E78.5 ; Personal history of nicotine dependence Z87.891 ; Primary generalized (osteo)arthritis M15.0 ; Screening for breast cancer Z12.39 ; Sacroiliitis M46.1 and BMI 22.0-22.9, adult Z68.22 [facility] [address] [facility] [address] [place] [id number] 10/12/2024 R Edil Villarre[facility]leet [facility] [address] [place] [id number] 11/18/2024 R Edil Villarrealfleet [facility] [address] [facility] [address] [place] [id number] 11/22/2024 R Edil Katia Screening for osteoporosis Z13.820 [facility] [address] [facility] [address] [place] [id number] 12/07/2024 R Edil Katia Lung mass R91.8 Assessments Encounter Date Diagnosis (ICD Code) Assessment Notes Treatment Notes Treatment Clinical Notes Section Notes 11/16/2024 Depression with anxiety (ICD-10 - F41.8) 11/16/2024 Tobacco use disorder (ICD-10 - F17.200) 11/22/2024 Screening for osteoporosis (ICD-10 - Z13.820) 12/07/2024 Lung mass (ICD-10 - R91.8) 11/16/2024 Dyslipidemia (ICD-10 - E78.5) 11/16/2024 Personal [...] Date MEDICARE PART B [address] [address] [place] [id number] GIAN DUNHAM Self - patient is the insured Aetna Senior Supplemental [id number] GIAN DUNHAM Self - patient is the insured Medications Administered Medication Instructions Date of Administration Dosage Notes Depo- Medrol 40 mg/ml 03/27/2021 1.5 mL Depo- Medrol 40 mg/ml 10/09/2023 1.5 mL Medical (General) History Medical History History ICD Code Anxiety Depression 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
[2025-01-19 13:34] LABS: Hematocrit 44.5 % (37.0-47.0); Hemoglobin 15.2 g/dL (12.2-16.2); Immature Granulocytes % 0.7 %; Mean Corpuscular HGB Conc 34.2 g/dL (31.8-35.4); Mean Corpuscular Hemoglobin 32.8 pg (27.0-31.2); Mean Corpuscular Volume 95.9 fl (81-99); Nucleated Red Blood Cells % 0 %; Platelet Count 221 K/mm3 (142-424); Red Blood Count 4.64 M/mm3 (4.20-5.40); Red Cell Distribution Width-SD 49.4 fL; White Blood Count 7.5 K/mm3 (4.8-10.8)
[2025-01-19 13:44] LABS: Chloride 108 mmol/L (98-107); Potassium 3.9 mmoL/L (3.5-5.1); Sodium 141 mmol/L (136-145)
[2025-01-19 13:47] LABS: Blood Urea Nitrogen 31 mg/dl (7-17); Creatinine Clearance Estimated 58 mL/min (50-200); Creatinine,Serum 0.80 mg/dl (0.52-1.04); Estimated Glomerular Filt Rate 72 ml/min (>60); GFR (African American) 87 ML/MIN (>60)
[2025-01-19 13:48] LABS: Anion Gap 9.9 mEq/L (5-15); Calcium 9.0 mg/dl (8.4-10.2); Carbon Dioxide 27 mmol/L (22.0-30.0); Glucose 91 mg/dl (74-100)
== END 2025-01-19 23:59 | disposition home or self-care (01) ==
LOC: PREOP 12:58
PROVIDERS: PCP Family Medicine; Visit Provider Internal Medicine Pulmonary Disease
DX: Z01.812 Encounter for preprocedural laboratory examination (principal); Z01.818 Encounter for other preprocedural examination
CPT/HCPCS: 80048; 85025

== ENCOUNTER 2025-01-25 10:57 | Outpatient (CLI) | payer MEDICARE, SELFPAY ==
--- OUTSIDE RECORDS SUMMARY | 2023-10-09 10:45 | XMS_ITS ---
Author Organization [facility] Address [address] [facility] [address] [id number] Care Team Providers Care Party Plan Sales Director Name Role Phone Sherice Montalvo Primary Care Provider Nemo Apple Unavailable [phone] Allergies Allergen (clinical drug ingredient) Drug/Non Drug Allergy documented on EMR Reaction Allergy Type Onset Date Status atorvastatin Atorvastatin rash Drug Allergy A ctive REASON FOR VISIT check up on medications Medications Medication SIG (Take, Route, Frequency, Duration) Notes Start Date End Date Status Celecoxib 200 mg TAKE ONE CAPSULE BY MOUTH EVERY DAY; Duration: 30 30 Day RX until she is seen for a check up Active Rosuvastatin Calcium 10 mg TAKE ONE TABLET BY MOUTH EVERY DAY AT BEDTIME; Duration: 30 Active FLUoxetine HCl 20 MG 1 capsule Orally Once a day; Duration: 30 day(s) 10/09/2023 Active FLUoxetine HCl 40 mg TAKE ONE CAPSULE BY MOUTH EVERY DAY Active Vitamin B 12 500 MCG 1 tab(s) orally once a day; Duration: 30 day(s) Active Meclizine HCl 25 MG 1 tab(s) orally 3 times a day 04/26/2022 Active Combivent Respimat 20-100 MCG/ACT 1 puff(s) inhaled 4 times a day 12/05/2021 Active Cyclobenzaprine HCl 10 MG 1 tab(s) Orall y Three times a day 03/20/2023 Active Multivitamin - 1 tab(s) orally once a day; Duration: 30 day(s) Active Social History Tobacco Use: Social History Observation Description Date Details (start date - stop date) Current Smoker NA - NA CURRENT TOBACCO USE: Question Answer Notes Are you a: current smoker How often do you smoke cigarettes? every day How many cigarettes a day do you smoke? - Vital Signs Blood pressure systolic 144 mm Hg 10/09/19 24 Blood pressure diastolic 90 mm Hg 024 Heart Rate 70 /min 10/09/2023 Height 67.50 in 10/09/2023 Weight 164 lbs 10/09/2023 BMI 25.30 kg/m2 10/09/2023 Encounters Encounter Location Date Provider Diagnosis [facility] [address] [facility] [address] [place] [id number] 10/09/2023 Nemo Apple Right hip pain M25.5 51 and Depression with anxiety F41.8 Assessments Encounter Date Diagnosis (ICD Code) Assessment Notes Treatment Notes Treatment Clinical Notes Section Notes 10/09/2023 Right hip pain (ICD-10 - M25.551) Patient is requesting an injection today. She know she will likely need hip replacement but is trying to avoid it for a bit longer. 10/09/2023 Depression with anxiety (ICD-10 - F41.8) Will add 20mg of fluoxetine to the 40 and see if she has any improvement. Plan Of Treatment Medication Medication Name Sig Start Date Stop Date Notes FLUoxetine HCl 20 MG 1 capsule Orally On ce a day; Duration: 30 day(s) 10/09/2023 FLUoxetine HCl 40 mg TAKE ONE CAPSULE BY MOUTH EVERY DAY Treatment Notes Assessment Notes Right hip pain Patient is requestin g an injection today. She know she will likely need hip replacement but is trying to avoid it for a bit longer. Depression with anxiety Will add 20mg of fluoxetine to the 40 and see if she has any improvement. Next Appt Details Follow Up: via phone to arlyn rt progress, Reason: Medications Administered Medication Instructions Date of Administration Dosage Notes Depo- Medrol 40 mg/ml 10/09/2023 1.5 mL Progress Notes * GIAN DUNHAMDOB:1960 (64 yo F)Acc No.[id number]:10/09/2023 Progress Notes Patient: Matthew GIAN SELBY Provider: JACKELIN Gauthier :1960 A ge:62 Y S ex:Female Date:10/09/2023 Address:[address] [place], [place] [phone] Pcp:Sherice Montalvo Subjective: * Chief Complaints: * 1 . Check up on medications. * HPI: P sychology: 62 year old female presents with c/o Anxiety P t here for f/u on anxiety, states she does not feel like Fluoxetine is helping anymore. Pt states she has anxiety still that comes and goes. States she was doing really good for a while on it but is starting to feel anxious again. H PI: c/o Here for follow up on: a rthritis, states she does not feel like Celecoxib is helping with pain. Pt states knees and rt hip are causing her a lot if pain.? * ROS: D ERMATOLOGY: no R gomez. n o H itz. G ASTROENTEROLOGY: no N ausea. n o V omiting. U ROLOGY: no D ifficulty urinating. n o B lood in urine. 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 * Surgical History: T onsillectomy , , Total Hysterectomy 2007, Ablation of lumbar nerves , C-scope - polyps 2012, Arthroscopic Knee Surgery on Left Knee 03/05/2022. * Hospitalization/Major Diagno stic Procedure: S pider Bite- [facility] 03/2019. * Family History: F ather: alive 90 yrs, colon cancer, heart disease, aneurysm, anxiety. M other: 78 yrs, heart disease, heart attack, depression. 2 sister(s) . 2 son(s) . . pt has a sister due to brain cancer. * Social History: C URRENT TOBACCO USE: Yes A re you a: c urrent smoker, H ow often do you smoke cigarettes? e very day, H ow many cigarettes a day do you smoke? 1 1-20. C affeine: yes, frequency:. Home smoke detector use: yes. Marital Status: and remarried. 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 Alcohol: No. * Medications: T aking Multivitamin - Tablet 1 tab(s) orally once a day , Taking Vitamin B 12 500 MCG Tablet 1 tab(s) orally once a day , Taking Combivent Respimat 20-100 MCG/ACT Aerosol Solution 1 puff(s) inhaled 4 times a day , Taking Meclizine HCl 25 MG Tablet 1 tab(s) orally 3 times a day , Taking Cyclobenzaprine HCl 10 MG Tablet 1 tab(s) Orally Three times a day , Taking Celecoxib 200 mg Capsule TAKE ONE CAPSULE BY MOUTH EVERY DAY , Notes to Pharmacist: 30 Day RX until she is seen for a check up, Taking FLUoxetine HCl 40 mg Capsule TAKE ONE CAPSULE BY MOUTH EVERY DAY , Taking Rosuvastatin Calcium 10 mg Tablet TAKE ONE TABLET BY MOUTH EVERY DAY AT BEDTIME , Discontinued predniSONE 20 MG Tablet 1 tab(s) three times dialy x 4 days, twice daily x 4 days then once daily x 4 days orally , Discontinued Medrol 4 MG Tablet 1 tablet with food or milk Orally every 12 hrs , Medication List reviewed and reconciled with the patient * Allergies: A torvastatin: rash - Allergy. Objective: * Vitals: W t:164, Temp:97.9, BP:144/90, HR:70, Nurse:mildred, Ht: 67.50, BMI:25.30. * Examination: P sychology: General Appearance: N AD. G rooming : a dequate.?Eye contact : n ormal. M ood : p leasant. H eart: R SR. L ungs: c lear to auscultation. N eurologic Exam: I ntact, gait normal. H ip / Thigh: Hip joint: right. I nspection: no effusion, ecchymosis or deformities. P alpation: tenderness on trochanteric bursa, ttp over the right groin . R geronimo of motion: restricted abduction, restricted internal rotation, restricted external rotation. L -S spines: n o tenderness on spines or SI joints. G ait: favoring affected side. Assessment: * Assessment: 1. R ight hip pain - M25.551 (Primary) 2 . D epression with anxiety - F41.8? Plan: * Treatment: 2. D epression with anxiety Continue FLUoxetine HCl Capsule, 40 mg, TAKE ONE CAPSULE BY MOUTH EVERY DAY; S tart FLUoxetine HCl Capsule, 20 MG, 1 capsule, Orally, Once a day, 30 day(s), 30, Refills 0. Notes: Will add 20mg of fluoxetine to the 40 and see if she has any improvement. * Therapeutic Injections: Depo- Medrol 40 mg/ml : 1.5 mL (Route: Intramuscular) given by Leigh Ann Khalil on right gluteus (Right hip pain) * Procedure Codes: J 1010 Depo- Medrol 40 mg/ml, Units: 2.00 , 90812 ADMINISTRATION OF INJECTION * Follow Up: v ia phone to report progress * Images: Billing Information: * Visit Code: 94835 Office Visit, Est Pt., Level 4. * Procedure Codes: J1010 Depo- Medrol 40 mg/ml. Units: 2.00. 64049 ADMINISTRATION OF INJECTION. * Electronic signature of JACKELIN Duran on 01/25/2025 at 11:26 AM EDT Sign off status: Pending * Provider: JACKELIN Gauthier Date: 0 10/09/2023 Generated for Chay wilkes/Jozef/eTransmitting on: 0 01/25/2025 11:26 AM EDT History and Physical Notes * HPI (History of Present Illness) Category Sub-Category Detail Notes Category Not es Psychology Anxiety Pt here for f/u on anxiety, states she does not feel like Fluoxetine is helping anymore. Pt states she has anxiety still that comes and goes. States she was doing really good for a while on it but is starting to feel anxious again HPI Here for follow up on: arthritis , states she does not feel like Celecoxib is helping with pain. Pt states knees and rt hip are causing her a lot if pain Examination Category Sub-Category Detail Notes Category Not es Psychology Heart: RSR Lungs: clear to auscultatio n General Appearance: NAD Neurologic Exam: Intact, gait normal Grooming : adequate Eye contact : normal Mood : pleasant Hip / Thigh Gait: favoring affected side Range of motion: restricted abduction , restricted internal rotation, restricted external rotation L-S spines: no tenderness on spi pooja or SI joints Hip joint: right Inspection: no effusion, ecchymo sis or deformities Palpation: tenderness on trocha nteric bursa, ttp over the right groin
--- OUTSIDE RECORDS SUMMARY | 2024-11-16 06:30 | XMS_ITS ---
Author Organization [facility] Address [address] [phone] Care Team Providers Care Manager Reading Name Role Phone Sherice Montalvo Primary Care [...] Interpretation:normal Performing Lab: Notes/Report: Test performed by [employer], [facility] , [address], [place] [address] Phi Gordillo MD, Military Source Operations Specialist CLIA: [id number] Sodium 141 135-145 mmol/L Potassium 3.8 3.5-5.3 [...] 97 Performing Lab: Notes/Report: Test performed by [employer], [address] , [address] , [place] [address] Phi Gordillo MD, Military Source Operations Specialist CLIA: [id number] Cholesterol 189 <200 mg/dL Triglycerides 147 <150 [...] Status W/U Status Risk Notes Problem Sacroiliitis ([id number]) Sacroiliitis (M46.1) Active confirmed Vital Signs Blood pressure systolic 120 mm Hg 11/17/19 25 Blood pressure diastolic 80 mm Hg 025 Heart Rate 67 /min 11/16/2024 Height 67.50 in 11/16/2024 Weight 149 lbs 11/16/2024 BMI 22.99 kg/m2 11/16/2024 Encounters Encounter Location Date Provider Diagnosis [facility] [address] [facility] [address] [place] [phone] 11/16/2024 Sherice Montalvo Depression with anxi ety [...] 6 Months, Reason: Progress Notes * MAY DNUHAM:1960 (64 yo F)Acc No.[id number]:11/16/2024 Progress Notes Patient: GIAN ALONZO Provider: Sherice Montalvo M.D. :1960 A ge:63 Y S ex:Female Date:11/16/2024 Address:[address] [place] [address] Subjective: * Chief Complaints: * 1 . [...] Tobacco Addiction, Cologuard - negative 2019 at [facility]. * Surgical History: T onsillectomy , , Total Hysterectomy 2007, Ablation of lumbar nerves , C-scope - polyps 2012, Arthroscopic Knee Surgery on Left Knee 03/05/2022. * Hospitalization/Major Diagno stic Procedure: S jodyer [place]ite[place] [facility] [place]. * Family History: F ather: alive [...] use: yes. Marital Status: and remarried. 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 Alcohol: No. * Medications: T aking [...] S acroiliitis - M46.1 8 . B [place] 22.0-22.9, adult - Z68.22 Plan: * Treatment: [...] EDT > no auth required; CPT code [id number], Eliana 11/17/2024 09:17:30 AM EDT > faxed to [facility] Comfort Medrano 12/07/2024 09:48:13 AM EDT [...] 09:1 7:40 AM EDT > faxed to [facility] Linda Olvera 12/14/2024 03:52:27 PM EDT > Patient informed of normal results. 6.?Sacroiliitis? Notes: Right SI joint injected with Depo-Medrol 60 mg and lidocaine 1/2 cc?? * Procedure Codes: G 2211 Complex e/[place], [address] CBC WITH AUTO DIFF, G8420 BMI<30 AND >=22 CALC & DOCU, G8783 BP SCR PRFRM RCMDD DEFIND SCR INTVL, G8752 MOST RECENT SYSTOLIC BP < 140MM HG, G8754 MOST RECENT DIASTOLIC BP < 90MM HG * Follow Up: 6 Months * Images: Billing Information: * Visit Code: 22193 Office Visit, Est Pt., Level 4. * Procedure Codes: G2211 Complex e/[place]. [address] CBC WITH AUTO DIFF. G8420 BMI<30 AND >=22 CALC & DOCU. G8783 BP SCR PRFRM RCMDD DEFIND SCR INTVL. G8752 MOST RECENT SYSTOLIC BP < 140MM HG. G8754 MOST RECENT DIASTOLIC BP < 90MM HG. * Electronic signature of Sherice Montalvo MD on 01/25/2025 at 11:27 AM EDT Sign off status: Pending * Provider: Sherice Montalvo M.D. Date: 0 11/16/2024 Generated for Chay wilkes/Jozef/Remiransmitting on: 0 01/25/2025 11:27 AM EDT History and Physical Notes * HPI (History of Present Illness) Category Sub-Category Detail Notes Category Not es [facility]iology [facility]. Pt is fasting today Examination Category Sub-Category Detail Notes Category Not es General Examination Heart: RSR Lungs: Coarse breath sounds . No rales or wheezes. Extremities: no leg edema General Appearance: No distress at rest. Moves slowly from the chair onto the exam table with apparent pain in her lower back.
--- OUTSIDE RECORDS SUMMARY | 2024-12-07 05:47 | XMS_ITS ---
Author Organization [facility] Address [address] [place] [address] [place] [phone] Care Team Providers Care Quality Controller Name Role Phone Sherice Montalvo Primary Care Provider [phone] Reason For Referral Reason Lung mass on CT scan Diagnosis 1 Lung mass (R91.8) Referral Organization [facility] Referring Provider First Name Sherice Solo Referring Provider Last Name Katia Referring Provider Speciality Family Pra ctice Referred Organization [facility] OP Referred Provider Ava Jimenez Referred Address [address] [place], [place] [address],[phone], Referred Provider Specialty Pulmonary Di seases General Notes Eliana Ridley 2024 09:43:21 AM > faxed to [facility] PulmonologyKeyana Brynn 12/13/2024 10:39:17 AM > 12/27/2024 at 10:20am Referral Priority Routine REASON FOR VISIT abnormal LDCT Encounters Encounter Location Date Provider Diagnosis [facility] [address] [place] [address] [address] [place] [phone] 12/07/2024 Sherice Montalvo Lung mass R91 .8 Assessments Encounter Date Diagnosis (ICD Code) Assessment Notes Treatment Notes Treatment Clinical Notes Section Notes 12/07/2024 Lung mass (ICD-10 - R91.8) Plan Of Treatment Referrals Referral Date Details 12/07/2024 12/07/2024, Lung mas s on CT scan, Ava Jimenez [address] [place] [address], [place], [phone], Progress Notes * GIAN DUNHAMDOB:1960 (64 yo F)Acc No.[id number]:12/07/2024 Patient: GIAN ALONZO :1960 A ge:64 Y S ex:Female Address:[address] [place] [address] Subjective: * Chief Complaints: * a bnormal LDCT * Medical History: * Surgical History: * Hospitalization/Major Diagno stic Procedure: * Medications: Objective: * Vitals: * Physical Examination: Assessment: * Assessment: 1. L alvin mass - R91.8 (Primary) Plan: * Treatment: * Procedure Codes: * true * Date: Generated for Chay wilkes/Jozef/eTransmitting on: 0 01/25/2025 11:27 AM EDT Consultation Request Notes Referral Date Referring Provider Referred Provider Not david 12/07/2024 Sherice Montalvo [place] Lung m ass on CT scan
--- NOTE | 2025-01-25 11:00 | CT_ITS ---
FINAL REPORT TECHNIQUE: Axial images were obtained through the chest without contrast. Coronal and sagittal images were obtained and reviewed. This study was performed with techniques to keep radiation doses as low as reasonably achievable, (ALARA). Individualized dose reduction techniques using automated exposure control or adjustment of mA and/or kV according to the patient's size were employed. CLINICAL HISTORY: ION procedure 01/28 COMPARISON: 12/06/2024 FINDINGS: The lungs are clear. There are moderate vascular calcifications of the aortic arch. There is a small sliding-type hiatal hernia. The heart size is normal. There is no pericardial or pleural effusion. Limited images of the upper abdomen are unremarkable. Moderate changes of centrilobular emphysema are noted. There is a somewhat spiculated density in the posterior right upper lobe measuring 2.0 cm in greatest dimension, well seen on images 47-49 of series 3. There is also a 4 mm nodule in the periphery of the right lower lobe on image 67 of series 3. A pleural-based nodule is seen in the posterior left lower lobe measuring 5 mm. IMPRESSION: Irregular density right upper lobe may be neoplastic or postinflammatory. PET-CT may provide further information. Lower lobe nodules bilaterally. Follow-up in 6 months recommended per Fleischner criteria. Reviewed, Interpreted and Dictated by Jourdan Smith MD Transcribed by Shaista Browne Authenticated and [facility]
--- OUTSIDE RECORDS SUMMARY | 2025-01-25 11:27 | XMS_ITS | Patient Health Record ---
Author Organization [facility] Address [address] [id number] Care Team Providers Care Divisional Human Resources Director Name Role Phone Sherice Montalvo Primary Care Provider [phone] Allergies Allergen (clinical drug ingredient) Drug/Non Drug [...] 97 Performing Lab: Notes/Report: Test performed by [facility] [address] [place] [address] , [address], [place] [address] Phi Gordillo MD, Calender Tender CLIA: [id number] Cholesterol 189 <200 mg/dL Triglycerides 147 <150 [...] Interpretation:normal Performing Lab: Notes/Report: Test performed by [facility], [address] , [facility], [place] [address] Phi Gordillo MD, Calender Tender CLIA: [id number] Sodium 141 135-145 mmol/L Potassium 3.8 3.5-5.3 [...] Name Katia Referring Provider Speciality Family Kia goodson Referred Organization OP Referred Provider Ava Jimenez Referred Address [address] [place], [place] [id number], Referred Provider Specialty Pulmonary Di seases General Notes Eliana Ridley 2024 09:43:21 AM > faxed to [facility] PulmonologyKeyana Brynn 12/13/2024 10:39:17 AM > [...] Notes Problem Mixed anxiety and depressive disorder (344665120) Depression with anxiety (F41.8) Active confirmed Problem Primary generalised osteoarthritis (606643272) Primary generalized (osteo)arthritis (M15.0) Active confirmed Problem Nicotine dependence (50767467) Personal history of nicotine dependence (Z87.891) Active confirmed Problem Sacroiliitis (39957886) Sacroiliitis (M46.1) Active confirmed Problem Localized, primary osteoarthritis of the hand (012788650) Primary osteoarthritis of right hand (M19.041) Active confirmed Problem Dyslipidemia (601521377) Dyslipidemia (E78.5) Active confirmed Problem Tobacco use (222873978) Tobacco use disorder (F17.200) Active confirmed Problem Allergic rhinitis (19657400) Allergic rhinitis, unspecified seasonality, unspecified trigger (J30.9) Active confirmed Vital Signs Heart Rate 67 /min 11/16/2024 Blood pressure diastolic 80 mm Hg 11/16/2024 Height 67.50 in 11/16/2024 Blood pressure systolic 120 mm Hg 11/16/2024 Weight 149 lbs 11/16/2024 BMI 22.99 kg/m2 11/16/2024 Encounters Encounter Location Date Provider Diagnosis [facility] [address] [place] [id number] 11/16/2024 R Edil Montalvo Depression with anxi ety F41.8 ; Tobacco use disorder F17.200 ; Dyslipidemia E78.5 ; Personal history of nicotine dependence Z87.891 ; Primary generalized (osteo)arthritis M15.0 ; Screening for breast cancer Z12.39 ; Sacroiliitis M46.1 and BMI 22.0-22.9, adult Z68.22 [facility] [address] [facility] [address] [place] [id number] 10/12/2024 R Edil Villarrealfleet [facility] [address] [place] [id number] 11/18/2024 R Edil Villarrealfleet [facility] [address] [facility] [address] [place] [id number] 11/22/2024 R Edil Katia Screening for osteoporosis Z13.820 [facility] [address] [facility] [address] [place] [id number] 12/07/2024 R Edil Katia Lung mass R91.8 [...] Date MEDICARE PART B [address] [address] [place] [id number] [id number] GIAN DUNHAM Self - patient is the insured Aetna Senior Supplemental [id number] GIAN DUNHAM Self - patient is the insured Medications Administered Medication Instructions Date of Administration Dosage Notes Depo- Medrol 40 mg/ml 03/27/2021 1.5 mL Depo- Medrol 40 mg/ml 10/09/2023 1.5 mL Medical (General) History Medical History History ICD Code Anxiety Depression 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
== END 2025-01-25 23:59 | disposition home or self-care (01) ==
LOC: RAD 10:57
PROVIDERS: PCP Family Medicine; Visit Provider Internal Medicine Pulmonary Disease
DX: R91.8 Other nonspecific abnormal finding of lung field (principal)
CPT/HCPCS: 71250

== ENCOUNTER 2025-01-28 14:05 | Inpatient (IN) | payer MEDICARE, SELFPAY ==
[2025-01-21 07:51] VITALS: BMI 22.5
[2025-01-28] VITALS (36 sets, daily range): BP systolic 123–213; BP diastolic 60–111; PULSE 68–90; RESP 16–24; TEMP 36.3–36.8; O2SAT 87–100
--- NOTE | 2025-01-28 | XR_ITS ---
FINAL REPORT CLINICAL HISTORY: Bronch in OR 9.4 mins 50.95 mGy FINDINGS: FLUOROSCOPY LESS THAN 1 HOUR HISTORY: Fluoroscopy guidance. Fluoroscopic guidance was provided for bronchoscopy in the OR. A single spot film was obtained. A total of 9.4 minutes of fluoroscopy time were used. Total DAP: 50.95 mGy IMPRESSION: As above. Reviewed, Interpreted and Dictated by Lakshmi Miller MD Transcribed by Shaista Browne Authenticated and [facility]
--- NOTE | 2025-01-28 07:18 | EXP.ANES.CKL ---
[facility] Disclaimer: The information contained in this section may have been updated after the patient was seen, as this information can be updated by other users. Medical History COPD (chronic obstructive pulmonary disease) Encounter for pre-operative cardiovascular clearance Abnormal electrocardiogram [ECG] [EKG] Lung nodule Tobacco abuse counseling Tobacco abuse Dyspnea on exertion Pulmonary emphysema Smoking greater than 30 pack years Seasonal allergies UTI (urinary tract infection) Anxiety Depression History of COVID-19 Hyperlipidemia Surgical History History of arthroscopy of left knee History of section History of hysterectomy History of tonsillectomy Family History Father Family history of cancer Mother Family history of myocardial infarction Social History Smoking Status: Current every day smoker tobacco type: cigarettes packs per day: 1 pack-years: 50 quit status: considering quitting alcohol intake: never substance use type: denies use current occupational status: employed Travel in the last 8 weeks?: Inside the [facility] housing: house current occupational exposures/hazards: No Have you lived/traveled outside [place] in past 30 days?: No Contact w/someone who lives/traveled outside US past 30 days?: No Exposure to someone with infectious disease in past 14 days?: No Do you have a fever (greater than 100.4 F or 38 C)?: No Have you tested positive for COVID-19?: No Exposed to someone with COVID-19 in past 14 days?: No Do you have a sore throat?: No Do you have a cough?: No Do you have any weakness?: No Do you have any diarrhea?: No Are you experiencing any unusual bleeding?: No Do you have any muscle aches/pain?: No Do you have any abdominal pain?: No Are you experiencing loss of taste or smell?: No [facility] Anesthesia Checklist Patient Identification Patient Identification: Arm Band and Verbal (Name & ) Structural Data Admitted From: Home Planned Operative Procedure/s: ION robotic bronch Consent for Planned Operative Procedure(s) Verified: Yes Verified Documents: Surgical Consent and History and Physical NPO Status Verified Time NPO: 00:00 Additional verifications Anesthesia Reactions: No Hx Blood Transfusions: No Blood Transfusion Reaction: No Airway Assessment Mallampati Score:: Class II Neurological Assessment Level of Consciousness: Awake, Alert and Appropriate Hx Seizures: No Numbness or tingling in extremities: No Anesthesia Plan Anesthesia Risk discussed: Yes Anesthesia Plan: Verified ASA Class: III Anesthesia Type: General
--- NOTE | 2025-01-28 11:03 | P.PNANES_ITS ---
[facility] Anesthesia Record Part I Anesthesia Record I Intake, IV Amount: 1,200 Hydration: Adequate Estimated blood loss (mL): 10 Urine output (mL): 0 Blood Pressure: 123/72 SaO2: 96 Pulse Rate: 86 Airway Patency: Patent Respiratory Rate: 18 Temperature: 98 F Patient is:: Awake and Nasal O2 Stable to PACU at:: 11:10
--- NOTE | 2025-01-28 11:12 | XR_ITS ---
FINAL REPORT CLINICAL HISTORY: post bronchoscopy in or COMPARISON: 02/28/2022 FINDINGS: A portable view of the chest was obtained. Cardiac and mediastinal silhouettes are within normal limits. Airspace disease in the periphery of the right middle lobe is likely postbiopsy hemorrhage. Increased interstitial markings are favored to be chronic.. There is no pleural effusion. Right pneumothorax is noted with 24 mm of pleural separation.. IMPRESSION: Right pneumothorax. Airspace disease in the periphery of the right middle lobe likely a small amount of hemorrhage related to biopsy. Reviewed, Interpreted and Dictated by Lakshmi Miller MD Transcribed by Shaista Browne Authenticated and [facility]
--- NOTE | 2025-01-28 11:12 | EXP.BRONCH.N ---
Procedure: Date: 01/28/25 Patient Date of :: 1960 Procedure Performed:: Navigational bronchoscopy, airway examination, bronchoalveolar lavage, trans bronchial fine-needle aspiration, trans bronchial brushing and trans bronchial biopsy of lung nodule and endobronchial ultrasound-guided lymph node surveillance and fine-needle aspiration of lymph node. Indications:: Lung nodule Performing Provider:: Ava Jimenez MD Referring Provider:: Dr: Dogu Montalvo MD Sedation:: General anesthesia Procedure:: Navigational bronchoscopy, airway examination, bronchoalveolar lavage, trans bronchial fine-needle aspiration, trans bronchial brushing and trans bronchial biopsy of lung nodule and endobronchial ultrasound-guided lymph node surveillance and fine-needle aspiration of lymph node. A clean diagnostic bronchoscopy was advanced to the ET tube and airway examination was performed. Airways appeared grossly normal, no evidence of mucoid secretions, mucous plugging active bleeding/old blood clots noted. Moderate amount of secretions were noted. Diagnostic bronchoscopy was retracted, and Robotic Ion bronchoscopy was introduced through the ET tube. Patient images were previously uploaded into the ION Plan point software. The target nodule sampling was planned, and the pathway was mapped. The nodule measured 18 mm in long axis. Following airway examination, airway registration was performed using shape sensing robot assisted bronchoscopy (SSRAB). We were 15 mm from the near edge of the nodule in the RUL. A Radial EBUS - [id number] was inserted to confirm the location which was tangential. Under fluoroscopy guidance the samples were taken. Sampling: A flexion 21 needle was used to perform FNA of the RUL Lung nodule. A total of 4 passes were made. Transbronchial forceps biopsies were then performed with a total of 6 biopsies were performed in the RUL Lung nodule. Bronchoalveolar lavage was performed with instillation of 40 cc normal saline with return of 15 cc back. Samples from transbronchial FNA, forceps biopsy and bronchoalveolar lavage were sent in CytoLyt for cytopathologic examination. Ion robotic bronchoscopy was retracted and EBUS bronchoscope was introduced for lymph node surveillance. Five passes were taken using 21 gauge needing at lymph node stations 4L, 10L, 7 and 10R. Resultant lymph node FNA sample were labelled separately for each lymph node station and were sent in CytoLyt for cytopathologic examination. Findings:: Please see the procedure note Recommendations:: Postoperative bronchoscopy instructions Follow in pulmonary clinic in 5 to 7 days Complications:: No acute immediate complication Estimated blood obtained (mL): 2
[2025-01-28] MEDS: IPRATROPIUM/ALBUTEROL 3 ML NEB IH ×3 (12:45→23:59)
--- NOTE | 2025-01-28 12:53 | XR_ITS ---
FINAL REPORT CLINICAL HISTORY: pneumothorax. COMPARISON: 2 hours prior FINDINGS: A portable view of the chest was obtained. Cardiac and mediastinal silhouettes are within normal limits. Worsening peripheral right middle and now lower lobe opacity is likely hemorrhage. No significant interval change in right pneumothorax with 24 mm pleural separation. IMPRESSION: Worsening right middle and lower lobe opacity, likely hemorrhage. No significant interval change in the right pneumothorax. Reviewed, Interpreted and Dictated by Lakshmi Miller MD Transcribed by Shaista Browne Authenticated and . [facility]
--- NOTE | 2025-01-28 14:48 | SUR.PHASEII ---
Patient arrived to postop at 1131, received report per PACU nurse, Genesis. During hand off, patient's o2sat noted 87% on RA. Per patient report she does not wear oxygen at home. Patient's nails noted with artificial nails and unable to view pleth on monitor utilized at this time. Another monitor with pleth option to view for adequate readings was obtained and pulse ox assessed. Per the new monitor, pleth was appropriate with readings in upper 80's. 2LNC was applied with HOB elevated, deep breathing exercises were encouraged and continuous pulse ox implemented. Lung sounds auscultated and noted with faint wheeze in left upper lobe then clear t/o rest of lung dodd. 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 patient's o2sat noted 91-92% on 2LNC. Patient denies SOA. 1148- Dr. Dee was contacted and made aware of patient being in post op with CXR obtained in PACU per Darwin Powers RN. 1215- Alejo Christine RN attempted to call Dr. Dee's office to discuss patient status and need for evaluation per MD, unable to reach office staff at this time. Alex Langston RN called Fide with Anesthesia at 1230 to relay patient's status, Fide provided order for a duoneb, and respiratory contacted for need of neb treatment to be administered. Duoneb administered at [address] Dee arrived to patient's bedside at 1243, and was made aware of patient's status and interventions provided as stated above. Dr. Dee read the CXR and instructed A Emmett CHEEMA to increase oxygen from 2LNC to 6LNC and wanted post op staff to call household appliance mechanic r/t need to admit patient for pneumothorax noted to right portion of lung. A Emmett RN increased to 6LNC as instructed, patient tolerated well and reports pain improved to right portion of lung. MD spoke with patient and family. Patient was agreeable for admission. Dr. Dee also ordered a STAT CXR, radiology arrived and performed STAT CXR. Decision was made that patient will need to be admitted and have a chest tube placed once transferred to [facility]. Alex Langston RN called House at 1243 and 1340 r/t need for admission. [place] returned call to Alex Langston RN approximately 1400 with report of patient will be admitted to 216. Alejo Christine RN called report to [place] oriental medicine practitioner, patient transferred to 216 at 1415.
--- NOTE | 2025-01-28 14:50 | P.CONS_ITS ---
History of Present Illness History of present illness: Ms. Marie is a 64-year-old female greater than [id number] smoking to pulmonary emphysema presented to the hospital for elective transbronchial biopsy procedure experience postprocedure pneumothorax with greater than 2 cm pleural separation worsening respiratory distress new oxygen requirement and worsening chest pain needing chest tube placement and was admitted to the hospital for further evaluation and management. [facility] Disclaimer: The information contained in this section may have been updated after the patient was seen, as this information can be updated by other users. Medical History (Updated 01/28/25 @ 14:50 by Ava Jimenez MD) Pneumothorax COPD (chronic obstructive pulmonary disease) Encounter for pre-operative cardiovascular clearance Abnormal electrocardiogram [ECG] [EKG] Lung nodule Tobacco abuse counseling Tobacco abuse Dyspnea on exertion Pulmonary emphysema Smoking greater than 30 pack years Seasonal allergies UTI (urinary tract infection) Anxiety Depression History of COVID-19 Hyperlipidemia Surgical History History of arthroscopy of left knee History of section History of hysterectomy History of tonsillectomy Family History Father Family history of cancer Mother Family history of myocardial infarction Social History Smoking Status: Current every day smoker tobacco type: cigarettes packs per day: 1 pack-years: 50 quit status: considering quitting alcohol intake: never substance use type: denies use current occupational status: employed Travel in the last 8 weeks?: Inside the [facility] housing: house current occupational exposures/hazards: No Have you lived/traveled outside [place] in past 30 days?: No Contact w/someone who lives/traveled outside US past 30 days?: No Exposure to someone with infectious disease in past 14 days?: No Do you have a fever (greater than 100.4 F or 38 C)?: No Have you tested positive for COVID-19?: No Exposed to someone with COVID-19 in past 14 days?: No Do you have a sore throat?: No Do you have a cough?: No Do you have any weakness?: No Do you have any diarrhea?: No Are you experiencing any unusual bleeding?: No Do you have any muscle aches/pain?: No Do you have any abdominal pain?: No Are you experiencing loss of taste or smell?: No Review of Systems Constitutional Constitutional: Reports anorexia, Denies body ache(s) and Reports fatigue Eyes Eyes: Denies eye discharge, Denies dry eyes, Denies irritation and Denies itchy eyes ENT Ears, Nose, Mouth, and Throat: Denies epistaxis, Denies facial pain, Denies lip swelling and Denies throat swelling *Cardiovascular Cardiovascular: Reports dyspnea and Reports dyspnea on exertion *Respiratory Respiratory: Denies chest congestion, Denies cough, Reports dyspnea, Reports dyspnea on exertion, Denies excessive phlegm production, Denies hemoptysis, Reports pain on inspiration, Reports pain with cough and Denies wheezing *Gastrointestinal Gastrointestinal: Denies abdominal pain, Denies belching and Denies cramping *Musculoskeletal Musculoskeletal: Reports back pain, Reports myalgias and Reports other (No small joint swelling or Pain) Psychiatric Psychiatric: Denies homicidal ideation and Denies suicidal ideation Endocrine Endocrine: Reports fatigue and Denies heat intolerance Hematologic/Lymphatic Hematologic/Lymphatic: Denies easy bleeding and Denies lymphadenopathy Allergic/Immunologic Allergic/Immunologic: Denies itchy eyes, Denies lip swelling, Denies throat swelling and Denies wheezing Pulmonology Exam Inpatient Vital signs and Labs for Last 24 Hours: Temp Pulse Resp BP Pulse Ox O2 Del Method O2 Flow Rate 97.4 F L 86 20 131/73 98 Nasal Cannula 6 01/28/25 11:31 01/28/25 14:00 01/28/25 14:00 01/28/25 14:00 01/28/25 14:00 01/28/25 14:00 01/28/25 14:00 I & O for Labs for Last 24 Hours: Intake & Output 01/25/25 01/26/25 01/27/25 01/28/25 23:59 23:59 23:59 23:59 Intake Total 1200 / 1200 Balance 1200 / 1200 Constitutional: Present moderate distress Head: Present normocephalic and atraumatic ENT: Present normal exam, normal oropharynx and mucous membranes moist Neck: Present normal inspection and full ROM Respiratory: Present respiratory distress, diminished air movement and able to speak in complete sentences; Absent wheezes or crackles Cardiac: Present S1/S2, Tachycardia and radial pulses present GI: Present soft and distention; Absent tenderness or guarding Rectal (female): Present deferred (female): Present deferred Skin: Present intact; Absent cyanosis or jaundice Neuro: Present alert, awake and oriented x 3 Extremities: Present normal inspection; Absent clubbing or cyanosis Psychiatric: Present normal affect and cooperative Meds Home Medications and Allergies Home Medications ?Medication ?Instructions ?Recorded ?Confirmed ?Type fluoxetine 40 mg capsule 40 mg PO HS 12/05/23 5 History rosuvastatin 10 mg tablet 10 mg PO HS 12/05/23 5 History albuterol sulfate 90 mcg/actuation 2 inh inhalation QI D PRN shortness 12/27/24 01/28/25 Rx aerosol inhaler (Ventolin HFA) of breath or wheezing 9 0 days #8.5 grams meloxicam 15 mg tablet 15 mg PO HS 12/27/24 5 History New Prescriptions to Start Prescriptions: Allergies Allergy/AdvReac Type Severity Reaction Status Date / Time No Known Allergies Allergy Verified 01/28/25 06:41 Assessment and Plan *Assessment and plan (1) Pneumothorax: Status: Acute Category: Medical Code(s): J93.9 - Pneumothorax, unspecified Plan Ms. Marie is a 64-year-old female greater than 59-[id number] smoking to pulmonary emphysema presented to the hospital for elective transbronchial biopsy procedure experience postprocedure pneumothorax with greater than 2 cm pleural separation worsening respiratory distress, new oxygen requirement and worsening chest pain needing chest tube placement and was admitted to the hospital for further evaluation and management. Plan: Surgery consult for chest tube placement and management. Appreciate surgical team's recommendations. Continue oxygen supplementation to maintain O2 saturation goal of 95% and above DuoNebs every 6 hours on a scheduled basis # MAGGIE bronchoscopy specimen concerning for adenocarcinoma lung. Will follow with final pathology report and follow as an outpatient basis.
[2025-01-28] MEDS: MORPHINE 2MG/ML SYRINGE 1 MG IV (15:45)
--- NOTE | 2025-01-28 15:47 | XR_ITS ---
FINAL REPORT CLINICAL HISTORY: chest tube COMPARISON: 01/28/2025 FINDINGS: A portable view of the chest is obtained. Cardiac and mediastinal silhouettes are normal. There has been interval placement of a right chest tube which is stable. There has been improvement in the right peripheral opacity. There is significant improvement of the right pneumothorax. Tiny apical component likely remains. There is new subcutaneous air along the chest wall. IMPRESSION: Interval placement of right chest tube with significant improvement in the right sided pneumothorax. Tiny apical component likely remains. Reviewed, Interpreted and Dictated by Lakshmi Miller MD Transcribed by America Aiken Authenticated and [facility]
--- NOTE | 2025-01-28 16:00 | EXP.SURG.CON ---
History of Present Illness *Admission Date: 01/28/25 *Reason for visit:: Reason for consultation: Right pneumothorax *History of present illness: This 64-year-old female seen in consultation regarding post-procedural pneumothorax. Chest x-ray reviewed. [facility] Disclaimer: The information contained in this section may have been updated after the patient was seen, as this information can be updated by other users. Medical History (Updated 01/28/25 @ 16:02 by Ricky Rangel MD) Pneumothorax COPD (chronic obstructive pulmonary disease) Encounter for pre-operative cardiovascular clearance Abnormal electrocardiogram [ECG] [EKG] Lung nodule Tobacco abuse counseling Tobacco abuse Dyspnea on exertion Pulmonary emphysema Smoking greater than 30 pack years Seasonal allergies UTI (urinary tract infection) Anxiety Depression History of COVID-19 Hyperlipidemia Surgical History History of arthroscopy of left knee History of section History of hysterectomy History of tonsillectomy Family History Father Family history of cancer Mother Family history of myocardial infarction Social History Smoking Status: Current every day smoker tobacco type: cigarettes packs per day: 1 pack-years: 50 quit status: considering quitting alcohol intake: never substance use type: denies use current occupational status: employed Travel in the last 8 weeks?: Inside the [facility] housing: house current occupational exposures/hazards: No Have you lived/traveled outside US in past 30 days?: No Contact w/someone who lives/traveled outside US past 30 days?: No Exposure to someone with infectious disease in past 14 days?: No Do you have a fever (greater than 100.4 F or 38 C)?: No Have you tested positive for COVID-19?: No Exposed to someone with COVID-19 in past 14 days?: No Do you have a sore throat?: No Do you have a cough?: No Do you have any weakness?: No Do you have any diarrhea?: No Are you experiencing any unusual bleeding?: No Do you have any muscle aches/pain?: No Do you have any abdominal pain?: No Are you experiencing loss of taste or smell?: No Review of Systems Review of Systems Review of systems:: pertinent systems reviewed and negative unless documented below *Cardiovascular Cardiovascular: Reports dyspnea *Respiratory Respiratory: Reports dyspnea Meds Home Medications and Allergies Home Medications ?Medication ?Instructions ?Recorded ?Confirmed ?Type fluoxetine 40 mg capsule 40 mg PO HS 12/05/23 01/28/25 History rosuvastatin 10 mg tablet 10 mg PO HS 12/05/23 01/28/25 History albuterol sulfate 90 mcg/actuation 2 inh inhalation QID PRN shortness 12/27/24 01/28/25 Rx aerosol inhaler (Ventolin HFA) of breath or wheezing 90 days #8.5 grams meloxicam 15 mg tablet 15 mg PO HS 12/27/24 01/28/25 History New Prescriptions to Start Prescriptions: Allergies Allergy/AdvReac Type Severity Reaction Status Date / Time No Known Allergies Allergy Verified 01/28/25 06:41 Exam (Inpt) Vital signs and Labs for Last 24 Hours: Temp Pulse Resp BP Pulse Ox O2 Del Method O2 Flow Rate 97.4 F L 86 20 131/73 98 Nasal Cannula 6 01/28/25 11:31 01/28/25 14:00 01/28/25 14:00 01/28/25 14:00 01/28/25 14:00 01/28/25 14:00 01/28/25 14:00 I & O for Labs for Last 24 Hours: Intake & Output 01/26/25 01/27/25 01/28/25 01/29/25 11:59 11:59 11:59 11:59 Intake Total 1200 / 1200 Balance 1200 / 1200 Constitutional: no acute distress Respiratory: Absent respiratory distress Cardiac: Absent Tachycardia Results Imaging Chest x-ray: report reviewed and image reviewed Assessment and Plan *Assessment and plan (1) Pneumothorax: Status: Acute Qualifiers: Pneumothorax type: postprocedural Qualified Code(s): J95.811 - Postprocedural pneumothorax Category: Medical Code(s): J93.9 - Pneumothorax, unspecified Plan: Chest tube placement I have discussed the risks and benefits including, but not limited to: Bleeding Infection Damage to surrounding tissue Inherent risks of sedation The patient agrees to proceed.
--- NOTE | 2025-01-28 16:03 | P.OP_ITS ---
Date of procedure: 01/28/25 Pre-op Diagnosis:: Right pneumothorax Post-op Diagnosis:: Same Procedure performed:: Right chest tube placement (24 Japanese) Surgeon:: Ricky Rangel MD Anesthesia: local Estimated blood loss (mL): 5 Operative findings:: Anchored at 18 cm Operative note:: After informed consent was obtained the patient was maintained in the supine position. Her right lateral chest region was prepped and draped in a sterile fashion. After infiltration with local anesthetic a transverse incision was made below the 6 interspace. The subcutaneous tissue was dissected up and over the rib margin . A 24 Japanese chest tube was placed in position and secured at 18 cm. Xeroform dressings were secured in position. The chest tube was connected to the Pleur-evac device and placed at 20 cm of water suction. Condition: stable Disposition: PACU Specimens:: None Complications:: No immediate. Chest x-ray pending.
--- NOTE | 2025-01-28 16:19 | EXP.HP ---
History of Present Illness *Admission Date: 01/28/25 *Reason for visit:: Post procedural pneumothorax *History of present illness: Ms. Marie is a 64-year-old female greater than [id number] smoking and pulmonary emphysema who presented to the hospital for elective transbronchial biopsy procedure and experienced postprocedure pneumothorax with greater than 2 cm pleural separation, worsening respiratory distress, new oxygen requirement, and worsening chest pain needing chest tube placement and was admitted to the hospital for further evaluation and management. (above as per Pulmonology) Her chest tube has been placed and she is in a lot of pain. She denies any SOA. [facility] Disclaimer: The information contained in this section may have been updated after the patient was seen, as this information can be updated by other users. Medical History (Updated 01/28/25 @ 16:02 by Ricky Rangel MD) Pneumothorax COPD (chronic obstructive pulmonary disease) Encounter for pre-operative cardiovascular clearance Abnormal electrocardiogram [ECG] [EKG] Lung nodule Tobacco abuse counseling Tobacco abuse Dyspnea on exertion Pulmonary emphysema Smoking greater than 30 pack years Seasonal allergies UTI (urinary tract infection) Anxiety Depression History of COVID-19 Hyperlipidemia Surgical History History of arthroscopy of left knee History of section History of hysterectomy History of tonsillectomy Family History Family history of cancer Father Family history of myocardial infarction Mother Social History Smoking Status: Current every day smoker tobacco type: cigarettes packs per day: 1 pack-years: 50 quit status: considering quitting alcohol intake: never substance use type: denies use current occupational status: employed Travel in the last 8 weeks?: Inside the [place] housing: house current occupational exposures/hazards: No Have you lived/traveled outside [place] in past 30 days?: No Contact w/someone who lives/traveled outside US past 30 days?: No Exposure to someone with infectious disease in past 14 days?: No Do you have a fever (greater than 100.4 F or 38 C)?: No Have you tested positive for COVID-19?: No Exposed to someone with COVID-19 in past 14 days?: No Do you have a sore throat?: No Do you have a cough?: No Do you have any weakness?: No Are you experiencing any nausea/vomitting?: No Do you have any diarrhea?: No Are you experiencing any unusual bleeding?: No Do you have any muscle aches/pain?: No Do you have any abdominal pain?: No Are you experiencing loss of taste or smell?: No Other Medical History Have you received the Flu Vaccine for this season: Yes Have you received the Pneumonia Vaccine: No Review of Systems Constitutional Constitutional: Denies fatigue, Reports headache(s) and Denies weakness Eyes Eyes: Denies blurry vision and Denies diplopia ENT Ears, Nose, Mouth, and Throat: Reports headache(s), Denies nasal congestion, Denies sore throat and Denies vertigo *Cardiovascular Cardiovascular: Reports chest pain, Reports dyspnea and Denies leg edema *Respiratory Respiratory: Denies cough and Reports dyspnea *Gastrointestinal Gastrointestinal: Denies abdominal pain, Denies loose stools, Denies nausea and Denies vomiting *Musculoskeletal Musculoskeletal: Denies arthralgias and Denies myalgias *Neurologic Neurologic: Reports headache(s), Denies vertigo and Denies weakness Endocrine Endocrine: Denies fatigue Meds Home Medications and Allergies Home Medications ?Medication ?Instructions ?Recorded ?Confirmed ?Type fluoxetine 40 mg capsule 40 mg PO HS 12/05/23 01/28/25 History rosuvastatin 10 mg tablet 10 mg PO HS 12/05/23 01/28/25 History albuterol sulfate 90 mcg/actuation 2 inh inhalation QID PRN shortness 12/27/24 01/28/25 Rx aerosol inhaler (Ventolin HFA) of breath or wheezing 90 days #8.5 grams meloxicam 15 mg tablet 15 mg PO HS 12/27/24 01/28/25 History New Prescriptions to Start Prescriptions: Allergies Allergy/AdvReac Type Severity Reaction Status Date / Time No Known Allergies Allergy Verified 01/28/25 06:41 Exam Data for Last 24 hours Vital signs and Labs for Last 24 Hours: Temp Pulse Resp BP Pulse Ox O2 Del Method O2 Flow Rate 97.4 F L 86 20 131/73 98 Nasal Cannula 6 01/28/25 11:31 01/28/25 14:00 01/28/25 14:00 01/28/25 14:00 01/28/25 14:00 01/28/25 14:00 01/28/25 14:00 I & O for Last 24 hours: Intake & Output 01/26/25 01/27/25 01/28/25 01/29/25 11:59 11:59 11:59 11:59 Intake Total 1200 / 1200 Balance 1200 / 1200 Constitutional Constitutional: mild distress (Patient is in a lot of pain with elevated BP) *Routine HEENT Exam Head: Present normocephalic and atraumatic Eye: Present EOMI and PERRL ENT: Present mucous membranes dry *Routine Neck Exam Neck: Present supple and full ROM *Routine Respiratory Exam Respiratory: Present CTA bilaterally (Chest tube in place on the right side) *Routine Cardiovascular Exam Cardiovascular: Present RRR *Routine Abdominal Exam Abdominal: Present soft and normoactive bowel sounds; Absent tenderness *Routine Rectal Exam Rectal:: deferred *Routine Genitalia Exam Genitalia:: deferred *Routine Extremities Exam Extremities: Absent cyanosis, clubbing or edema *Routine Skin Exam Skin: Present intact; Absent erythema *Routine Neurological Exam Neurological: Present alert and oriented X3 H&P: Result Impressions CXR Right pneumothorax. Airspace disease in the periphery of the right middle lobe likely a small amount of hemorrhage related to biopsy. Repeat CXR Worsening right middle and lower lobe opacity, likely hemorrhage. No significant interval change in the right pneumothorax. Assessment and Plan *Assessment and plan (1) Pneumothorax: Status: Acute Qualifiers: Pneumothorax type: postprocedural Qualified Code(s): J95.811 - Postprocedural pneumothorax Category: Medical Code(s): J93.9 - Pneumothorax, unspecified (2) COPD (chronic obstructive pulmonary disease): Status: Acute Category: Medical Code(s): J44.9 - Chronic obstructive pulmonary disease, unspecified (3) Lung nodule: Status: Acute Category: Medical Code(s): R91.1 - Solitary pulmonary nodule (4) Tobacco abuse: Status: Acute Category: Medical Code(s): Z72.0 - Tobacco use Plan Dr. Rangel has placed the chest tube. Will continue oxygen supplementation to maintain O2 saturation goal of 95% and above and duoNebs every 6 hours on a scheduled basis. Will give morphine for pain and monitor BP. Dr. Walsh entry - Saw patient, agree with above note. Pain control and BP control medications ordered.
[2025-01-28] MEDS: LIDOCAINE 1% 10ML MDV 10 ML IJ (16:46)
[2025-01-28] MEDS: MORPHINE 4MG/ML SYRINGE 4 MG IV ×3 (16:48→23:42)
[2025-01-28] MEDS: AMLODIPINE 5MG TABLET 5 MG PO (17:51)
--- NOTE | 2025-01-28 18:14 | PC.NURSE ---
pt is A&Ox4. she came in for a bronchoscopy today and had a complication of a tension pneumothorax. pt was admitted for observation and dr renae came to bedside to put in a chest tube. she is currently on 4L NC but her baseline is room air. she has been in quite a bit of pain so dr griffiths has ordered prn pain meds. pain has gotten better after taking the pain meds. pt has no other complaints at this time. call light is within reach.
[2025-01-28] MEDS: KETOROLAC 30MG/ML VIAL 30 MG IV (19:50)
[2025-01-28] MEDS: FLUOXETINE 20MG CAPSULE 40 MG PO (20:20)
[2025-01-28] MEDS: ATORVASTATIN 20MG TABLET 10 MG PO (20:21)
[2025-01-29] VITALS (15 sets, daily range): BP systolic 115–146; BP diastolic 68–85; PULSE 60–89; RESP 15–18; TEMP 36.4–36.7; O2SAT 92–97; BMI 22.6
[2025-01-29] MEDS: MORPHINE 4MG/ML SYRINGE 4 MG IV ×5 (03:57→23:17)
--- NOTE | 2025-01-29 05:07 | PC.NURSE ---
Pt. is alert and orientated x 4. Pt was on 4 liters of oxygen per N/C, able to wean to 2 liters per N/C to keep O2 sats > 95% P came in yesterday for elective Bronchscopy with biopsy of lung nodules. Pt. had Chest pain and Shortness of breath post procedure. Per Chest xray Pt. had a right sided pneumothorax. A chest tube was placed in right chest. Chest tube to CLWS at -20cm H2O.Very small amout of red blood has drained from the chest tube. Pt. c/o severe pain to chest tube site. States it hurts to try and breath deep and it hurts to move. Pt. has been medicated for pain with some relief. Pt. was able to sleep for short intervals of time. Pt. has non productive cough. Pt. has a purewick in place but has not had much urine output at this time. Personal items and call harvey in reach. Bed in low and locked position. Safety measures in place.
--- NOTE | 2025-01-29 05:38 | PC.NURSE ---
Pt's blood pressure was very high at start of shift but with pain meds and rest is has trended down to 150's/80's. initial BP at change of shift was 200/100's
[2025-01-29] MEDS: KETOROLAC 30MG/ML VIAL 30 MG IV ×4 (05:55→23:18)
--- NOTE | 2025-01-29 06:00 | XR_ITS ---
PROCEDURE INFORMATION: Exam: XR Chest Exam date and time: 01/29/2025 5:57 AM Age: 64 years old Clinical indication: Other: Pneumothorax TECHNIQUE: Imaging protocol: Radiologic exam of the chest. Views: 1 view. COMPARISON: CR XR CHEST PORTABLE 01/28/2025 3:46 PM FINDINGS: Tubes, catheters and devices: Right-sided pleural tube. Lungs: Chronic interstitial changes. Pleural spaces: Stable tiny residual apical pneumothorax. Heart/Mediastinum: Moderate cardiomegaly. Bones/joints: Unremarkable. IMPRESSION: Right-sided pleural tube. Stable tiny residual apical pneumothorax. Chronic interstitial changes. Moderate cardiomegaly.
[2025-01-29] MEDS: ACETAMINOPHEN 325MG TAB 650 MG PO ×2 (06:04→20:34)
[2025-01-29] MEDS: IPRATROPIUM/ALBUTEROL 3 ML NEB IH ×4 (06:20→23:03)
[2025-01-29 07:20] LABS: Hematocrit 44.8 % (37.0-47.0); Hemoglobin 15.0 g/dL (12.2-16.2); Immature Granulocytes % 0.5 %; Mean Corpuscular HGB Conc 33.5 g/dL (31.8-35.4); Mean Corpuscular Hemoglobin 32.4 pg (27.0-31.2); Mean Corpuscular Volume 96.8 fl (81-99); Nucleated Red Blood Cells % 0 %; Platelet Count 201 K/mm3 (142-424); Red Blood Count 4.63 M/mm3 (4.20-5.40); Red Cell Distribution Width-SD 52.7 fL; White Blood Count 9.4 K/mm3 (4.8-10.8)
[2025-01-29 07:45] LABS: Anion Gap 9.5 mEq/L (5-15); Blood Urea Nitrogen 17 mg/dl (7-17); Calcium 8.8 mg/dl (8.4-10.2); Carbon Dioxide 28 mmol/L (22.0-30.0); Chloride 102 mmol/L (98-107); Creatinine Clearance Estimated 58 mL/min (50-200); Creatinine,Serum 0.50 mg/dl (0.52-1.04); Estimated Glomerular Filt Rate 124 ml/min (>60); GFR (African American) 150 ML/MIN (>60); Glucose 89 mg/dl (74-100); Potassium 3.5 mmoL/L (3.5-5.1); Sodium 136 mmol/L (136-145)
--- NOTE | 2025-01-29 08:54 | P.PN_ITS ---
Subjective *Date: 01/29/25 *Time: 08:54 Interval history: Patient reports quite a bit of pain overnight. One extra dose of Morphine was given and it helped her pain. No new issues. Medical Exam Vital signs and Labs for Last 24 Hours: Vital Signs Temp Pulse Pulse Resp BP BP Pulse Ox 01/29/25 07:58 97.8 F 74 18 115/68 97 01/29/25 06:26 01/29/25 06:21 71 01/29/25 06:21 73 01/29/25 06:21 96 01/29/25 05:00 01/29/25 04:00 60 01/29/25 04:00 97.7 F 70 16 145/83 H 95 01/29/25 03:00 01/29/25 01:37 70 01/29/25 01:00 01/28/25 23:59 73 01/28/25 23:59 70 01/28/25 23:59 96 01/28/25 23:00 01/28/25 23:00 80 16 156/83 H 96 01/28/25 22:30 68 18 157/86 H 99 01/28/25 22:00 68 18 165/96 H 99 01/28/25 21:37 90 01/28/25 21:30 71 18 168/95 H 99 01/28/25 21:00 01/28/25 21:00 71 18 154/87 H 100 01/28/25 20:30 71 18 150/69 H 98 01/28/25 20:00 22 97 01/28/25 19:43 98.1 F 77 22 195/103 H 97 01/28/25 18:35 85 01/28/25 18:35 83 01/28/25 18:35 98 01/28/25 17:30 86 20 185/102 H 97 01/28/25 17:00 82 16 164/89 H 98 01/28/25 17:00 01/28/25 16:30 84 22 191/104 H 97 01/28/25 16:00 74 24 203/111 H 97 01/28/25 15:30 68 20 213/85 H 97 01/28/25 15:15 89 18 150/83 H 97 01/28/25 15:10 01/28/25 15:00 86 18 160/91 H 100 01/28/25 14:50 97 01/28/25 14:45 98.3 F 86 16 158/88 H 98 01/28/25 14:00 86 20 131/73 98 01/28/25 13:45 84 18 134/79 97 01/28/25 13:30 82 136/82 96 01/28/25 13:15 86 20 148/90 H 95 01/28/25 13:00 84 149/82 H 97 01/28/25 12:45 81 140/76 92 L 01/28/25 12:45 77 01/28/25 12:45 74 01/28/25 12:30 89 137/61 91 L 01/28/25 12:01 84 18 131/60 91 L 01/28/25 11:46 90 127/71 92 L 01/28/25 11:31 97.4 F L 89 20 130/71 87 L 01/28/25 11:30 98 F 89 18 135/76 94 L 01/28/25 11:20 98 F 88 18 129/61 95 01/28/25 11:10 98 F 85 18 146/85 H 95 01/28/25 11:05 98 F 86 18 123/72 01/28/25 11:00 98 F 81 18 132/72 94 L O2 Del Method O2 Flow Rate 01/29/25 07:58 Nasal Cannula 2 01/29/25 06:26 Nasal Cannula 2 01/29/25 06:21 01/29/25 06:21 01/29/25 06:21 Nasal Cannula 2 01/29/25 05:00 Nasal Cannula 2 01/29/25 04:00 01/29/25 04:00 Nasal Cannula 2 01/29/25 03:00 Nasal Cannula 01/29/25 01:37 01/29/25 01:00 Nasal Cannula 4 01/28/25 23:59 01/28/25 23:59 01/28/25 23:59 Nasal Cannula 4 01/28/25 23:00 Nasal Cannula 4 01/28/25 23:00 Nasal Cannula 4 01/28/25 22:30 Nasal Cannula 4 01/28/25 22:00 Nasal Cannula 4 01/28/25 21:37 01/28/25 21:30 Nasal Cannula 4 01/28/25 21:00 Nasal Cannula 4 01/28/25 21:00 Nasal Cannula 4 01/28/25 20:30 Nasal Cannula 4 01/28/25 20:00 Nasal Cannula 4 01/28/25 19:43 Nasal Cannula 4 01/28/25 18:35 01/28/25 18:35 01/28/25 18:35 Nasal Cannula 4 01/28/25 17:30 Nasal Cannula 4 01/28/25 17:00 Nasal Cannula 6 01/28/25 17:00 Nasal Cannula 6 01/28/25 16:30 Nasal Cannula 6 01/28/25 16:00 Nasal Cannula 6 01/28/25 15:30 Nasal Cannula 6 01/28/25 15:15 Nasal Cannula 6 01/28/25 15:10 Nasal Cannula 6 01/28/25 15:00 Nasal Cannula 6 01/28/25 14:50 Nasal Cannula 6 01/28/25 14:45 Nasal Cannula 6 01/28/25 14:00 Nasal Cannula 6 01/28/25 13:45 Nasal Cannula 6 01/28/25 13:30 Nasal Cannula 6 01/28/25 13:15 Nasal Cannula 6 01/28/25 13:00 Nasal Cannula 6 01/28/25 12:45 Nasal Cannula 3 01/28/25 12:45 01/28/25 12:45 01/28/25 12:30 Nasal Cannula 3 01/28/25 12:01 Nasal Cannula 3 01/28/25 11:46 Nasal Cannula 2 01/28/25 11:31 Room Air 01/28/25 11:30 Room Air 01/28/25 11:20 Nasal Cannula 1 01/28/25 11:10 Nasal Cannula 3 01/28/25 11:05 01/28/25 11:00 Nasal Cannula 3 Intake and Output 01/28/25 01/29/25 01/29/25 23:59 07:59 15:59 Intake Total 240 / 240 Output Total Balance 218 / 218 Intake: Intake, Oral Amount 240 / 240 Output: Output, Urine Amount 0 / 0 Output, Chest Tube Drainage Amount Right Lateral Chest Other: Number of Unmeasured Voids 0 Weight 143 lb 15.989 oz Patient Weight 01/29/25 23:59 Weight 143 lb 15.989 oz Laboratory Results - last 24 hr 01/29/25 06:20: WBC 9.4, RBC 4.63, Hgb 15.0, Hct 44.8, MCV 96.8, MCH 32.4 H, MCHC 33.5, RDW 14.7, Plt Count 201, MPV 9.8, Neut % (Auto) 67.9, Lymph % (Auto) 18.6, [place] % (Auto) 12.6 H, Eos % (Auto) 0.0 L, Baso % (Auto) 0.4, Neut # (Auto) 6.4, Lymph # (Auto) 1.8, [place] # (Auto) 1.2 H, Eos # (Auto) 0.0, Baso # (Auto) 0.0, Sodium 136, Potassium 3.5, Chloride 102, Carbon Dioxide 28, Anion Gap 9.5, BUN 17, Creatinine 0.50 L, Estimated Creat Clear 58, Estimated GFR 124, Est GFR ( Amer) 150, Glucose 89, Calcium 8.8 I & O for Labs for Last 24 Hours: Intake & Output 01/26/25 01/27/25 01/28/25 01/29/25 23:59 23:59 23:59 23:59 Intake Total 1200 / 1440 240 / 240 Output Total Balance 1200 / 1440 218 / 218 Weight 143 lb 15.989 oz Constitutional: Present no acute distress Respiratory: Present normal respiratory effort Comment:: Chest tube in place Cardiac: Present Reg Rate and Rhythm GI: Present normal bowel sounds; Absent tenderness Extremities: Present normal inspection and full ROM Skin: Present intact; Absent erythema Neuro: Present Grossly Intact and moves all extremities Assessment and Plan *Assessment and plan (1) Pneumothorax: Status: Acute Qualifiers: Pneumothorax type: postprocedural Qualified Code(s): J95.811 - Postprocedural pneumothorax Category: Medical Code(s): J93.9 - Pneumothorax, unspecified (2) COPD (chronic obstructive pulmonary disease): Status: Acute Category: Medical Code(s): J44.9 - Chronic obstructive pulmonary disease, unspecified (3) Lung nodule: Status: Acute Category: Medical Code(s): R91.1 - Solitary pulmonary nodule (4) Tobacco abuse: Status: Acute Category: Medical Code(s): Z72.0 - Tobacco use Plan Continue current treatment.
--- NOTE | 2025-01-29 15:03 | EXP.SURG.PN ---
Subjective Narrative: No acute events overnight. Complains that the chest tube is irritating. Denies shortness of breath. Exam Data for Last 24 hours Vital signs and Labs for Last 24 Hours: Temp Pulse Resp BP Pulse Ox O2 Del Method O2 Flow Rate 97.5 F L 89 18 119/68 92 L Nasal Cannula 2 01/29/25 12:00 01/29/25 12:00 01/29/25 12:00 01/29/25 12:00 01/29/25 12:00 01/29/25 13:20 01/29/25 13:20 Laboratory Results - last 24 hr 01/29/25 06:20: WBC 9.4, RBC 4.63, Hgb 15.0, Hct 44.8, MCV 96.8, MCH 32.4 H, MCHC 33.5, RDW 14.7, Plt Count 201, MPV 9.8, Neut % (Auto) 67.9, Lymph % (Auto) 18.6, [place] % (Auto) 12.6 H, Eos % (Auto) 0.0 L, Baso % (Auto) 0.4, Neut # (Auto) 6.4, Lymph # (Auto) 1.8, [place] # (Auto) 1.2 H, Eos # (Auto) 0.0, Baso # (Auto) 0.0, Sodium 136, Potassium 3.5, Chloride 102, Carbon Dioxide 28, Anion Gap 9.5, BUN 17, Creatinine 0.50 L, Estimated Creat Clear 58, Estimated GFR 124, Est GFR ( Amer) 150, Glucose 89, Calcium 8.8 I & O for Last 24 hours: Intake & Output 01/26/25 01/27/25 01/28/25 01/29/25 23:59 23:59 23:59 23:59 Intake Total 1200 / 1440 1080 / 1080 Output Total 272 / 272 Balance 1200 / 1440 808 / 808 Weight 143 lb 15.989 oz Constitutional Constitutional: no acute distress *Routine Respiratory Exam Respiratory: Present CTA bilaterally, normal respiratory effort and symmetric chest movement; Absent accessory muscle use Comments: Right sided chest tube to wall suction, no air leak. *Routine Cardiovascular Exam Cardiovascular: Present RRR Progress Note: A&P Assessment and plan (1) Pneumothorax: Status: Acute Assessment and plan: Chest x-ray images and report reviewed, tiny apical pneumothorax persists. Recheck chest x-ray in the morning. Will likely place chest tube to waterseal tomorrow for 24 hours with consideration of removal on Friday if there is no pneumothorax recurrence. Would not clamp chest tube. (2) COPD (chronic obstructive pulmonary disease): Status: Acute (3) Lung nodule: Status: Acute (4) Tobacco abuse: Status: Acute
--- NOTE | 2025-01-29 17:53 | PC.NURSE ---
pt is A&Ox4. pt had a chest tube placed yesterday for a tension pneumothorax. she has been in pain today but eased up some with pain meds but never really went away. she has been getting up to the bedside commode today. is at bedside. pt has no other complaints at this time. call light is within reach.
[2025-01-29] MEDS: FLUOXETINE 20MG CAPSULE 40 MG PO (20:22)
[2025-01-29] MEDS: ATORVASTATIN 20MG TABLET 10 MG PO (20:26)
[2025-01-29] MEDS: PANTOPRAZOLE 40MG TABLET 40 MG PO (23:14)
[2025-01-30] VITALS (14 sets, daily range): BP systolic 130–162; BP diastolic 74–92; PULSE 60–90; RESP 14–22; TEMP 36.4–36.8; O2SAT 95–99; BMI 22.6
[2025-01-30] MEDS: MORPHINE 4MG/ML SYRINGE 4 MG IV ×6 (03:27→23:46)
[2025-01-30] MEDS: ACETAMINOPHEN 325MG TAB 650 MG PO ×3 (03:32→19:38)
[2025-01-30] MEDS: KETOROLAC 30MG/ML VIAL 30 MG IV ×4 (05:03→23:11)
--- NOTE | 2025-01-30 06:00 | XR_ITS ---
PROCEDURE INFORMATION: Exam: XR Chest Exam date and time: 01/30/2025 5:57 AM Age: 64 years old Clinical indication: Other: Pneumothorax TECHNIQUE: Imaging protocol: Radiologic exam of the chest. Views: 1 view. COMPARISON: CR XR CHEST PORTABLE 01/29/2025 5:57 AM FINDINGS: Tubes, catheters and devices: Indwelling right-sided chest tube. Lungs: Unremarkable. No consolidation. Pleural spaces: No visible pneumothorax Heart/Mediastinum: Unremarkable. No cardiomegaly. Bones/joints: Unremarkable. Soft tissues: Subcutaneous emphysema right lateral chest wall. IMPRESSION: Indwelling right-sided chest tube. No visible pneumothorax. Subcutaneous emphysema right lateral chest wall
[2025-01-30] MEDS: IPRATROPIUM/ALBUTEROL 3 ML NEB IH ×4 (06:21→23:43)
--- NOTE | 2025-01-30 07:31 | PC.NURSE ---
Pt. is alert and orientated x 4. Pt. is on oxygen 2-4 liters per N/C. Pt. has a right sided chest tube hooked up to suction at -20 cc H2O Pt has small amount of bloody drainage in the chest tube chamber. There is no air leak. Pt has had a lot of pain at the insertion site. Pt. medicated multiple times for pain per JUL. Pt. having hard time to find a comfortable position. .Pt. up to bedside commode and than up to chair. Pt. willing to move despite the pain. Pt. sleeping off and on throughout shift. Personal items and call harvey in reach. Bed in low and locked position. Safety measures in place.
--- NOTE | 2025-01-30 10:28 | EXP.ACUTE.PN ---
Subjective *Date: 01/30/25 *Time: 10:28 Interval history: Patient with no new complaints today, still having pain in right chest. Medical Exam Vital signs and Labs for Last 24 Hours: Vital Signs Temp Pulse Pulse Resp BP Pulse Ox O2 Del Method 01/30/25 09:00 Nasal Cannula 01/30/25 08:00 95 Nasal Cannula 01/30/25 08:00 97.6 F 68 14 150/77 H 95 Nasal Cannula 01/30/25 07:00 Nasal Cannula 01/30/25 06:21 60 01/30/25 06:21 66 01/30/25 06:21 99 Nasal Cannula 01/30/25 05:00 Nasal Cannula 01/30/25 05:00 80 01/30/25 04:00 97.8 F 61 14 149/74 H 98 Nasal Cannula 01/30/25 03:00 Nasal Cannula 01/30/25 01:00 Nasal Cannula 01/30/25 01:00 70 01/29/25 23:48 63 01/29/25 23:47 66 01/29/25 23:00 Nasal Cannula 01/29/25 21:00 80 01/29/25 21:00 Nasal Cannula 01/29/25 20:00 16 94 L Nasal Cannula 01/29/25 20:00 97.8 F 70 15 137/76 94 L Nasal Cannula 01/29/25 19:08 Nasal Cannula 01/29/25 19:07 66 01/29/25 19:07 67 01/29/25 18:52 Nasal Cannula 01/29/25 17:15 Nasal Cannula 01/29/25 17:00 70 01/29/25 15:57 98.1 F 81 18 146/85 H 96 Nasal Cannula 01/29/25 15:00 Nasal Cannula 01/29/25 13:20 Nasal Cannula 01/29/25 12:00 70 01/29/25 12:00 97.5 F L 89 18 119/68 92 L 01/29/25 11:31 65 01/29/25 11:31 64 01/29/25 11:31 94 L Nasal Cannula 01/29/25 11:10 Nasal Cannula O2 Flow Rate FiO2 01/30/25 09:00 4 01/30/25 08:00 4 01/30/25 08:00 4 01/30/25 07:00 4 01/30/25 06:21 01/30/25 06:21 01/30/25 06:21 4 01/30/25 05:00 4 01/30/25 05:00 01/30/25 04:00 2 01/30/25 03:00 4 01/30/25 01:00 3 01/30/25 01:00 01/29/25 23:48 01/29/25 23:47 01/29/25 23:00 4 01/29/25 21:00 01/29/25 21:00 2 01/29/25 20:00 2 01/29/25 20:00 2 01/29/25 19:08 2 28 01/29/25 19:07 01/29/25 19:07 01/29/25 18:52 2 01/29/25 17:15 2 01/29/25 17:00 01/29/25 15:57 2 01/29/25 15:00 2 01/29/25 13:20 2 01/29/25 12:00 01/29/25 12:00 01/29/25 11:31 01/29/25 11:31 01/29/25 11:31 2 01/29/25 11:10 2 Intake and Output 01/29/25 01/30/25 01/30/25 23:59 07:59 15:59 Intake Total 340 / 1420 0 / 280 280 / 280 Output Total 0 / 272 390 / 390 Balance 340 / 1148 -390 / -110 280 / -110 Intake: Intake, Oral Amount 340 / 1420 0 / 280 280 / 280 Output: Output, Urine Amount 0 / 250 350 / 350 Output, Chest Tube Drainage 40 / 40 Amount Right Lateral Chest 40 / 40 Other: Number of Unmeasured Voids 1 1 Weight 144 lb Patient Weight 01/30/25 23:59 Weight 144 lb I & O for Labs for Last 24 Hours: Intake & Output 01/27/25 01/28/25 01/29/25 01/30/25 23:59 23:59 23:59 23:59 Intake Total 1200 / 1440 1420 / 1420 280 / 280 Output Total 272 / 272 390 / 390 Balance 1200 / 1440 1148 / 1148 -110 / -110 Weight 143 lb 15.989 oz 144 lb Constitutional: Present no acute distress Respiratory: Present normal respiratory effort Comment:: Chest tube in place Cardiac: Present Reg Rate and Rhythm GI: Present normal bowel sounds; Absent tenderness Extremities: Present normal inspection and full ROM Skin: Present intact; Absent erythema Neuro: Present Grossly Intact and moves all extremities Assessment and Plan *Assessment and plan (1) Pneumothorax: Status: Acute Qualifiers: Pneumothorax type: postprocedural Qualified Code(s): J95.811 - Postprocedural pneumothorax Category: Medical Code(s): J93.9 - Pneumothorax, unspecified (2) COPD (chronic obstructive pulmonary disease): Status: Acute Category: Medical Code(s): J44.9 - Chronic obstructive pulmonary disease, unspecified (3) Lung nodule: Status: Acute Category: Medical Code(s): R91.1 - Solitary pulmonary nodule (4) Tobacco abuse: Status: Acute Category: Medical Code(s): Z72.0 - Tobacco use Plan Will give an extra dose of Morphine now, chest tube management per surgery.
--- NOTE | 2025-01-30 14:31 | EXP.SURG.PN ---
Subjective Narrative: No acute events overnight. Satting well on minimal nasal cannula oxygen. Complains of rib pain, which sometimes flares into a sharp twinge. Exam Data for Last 24 hours Vital signs and Labs for Last 24 Hours: Temp Pulse Resp BP Pulse Ox O2 Del Method O2 Flow Rate 98.1 F 87 18 130/75 97 Nasal Cannula 4 01/30/25 12:00 01/30/25 12:00 01/30/25 12:00 01/30/25 12:00 01/30/25 12:00 01/30/25 13:20 01/30/25 13:20 FiO2 28 01/29/25 19:08 I & O for Last 24 hours: Intake & Output 01/27/25 01/28/25 01/29/25 01/30/25 23:59 23:59 23:59 23:59 Intake Total 1200 / 1440 1420 / 1420 640 / 640 Output Total 272 / 272 390 / 390 Balance 1200 / 1440 1148 / 1148 250 / 250 Weight 143 lb 15.989 oz 144 lb Constitutional Constitutional: no acute distress *Routine Respiratory Exam Respiratory: Present CTA bilaterally; Absent accessory muscle use Comments: Right-sided chest tube without airleak. I placed to waterseal and no airleak was noted on waterseal. Progress Note: A&P Assessment and plan (1) Pneumothorax: Status: Acute Assessment and plan: Chest x-ray images and report reviewed, no pneumothorax on today's films. Chest tube to waterseal at 2 PM, check chest x-ray at 5 PM. Recheck chest x-ray in the morning. Would not clamp chest tube. Hopefully chest tube can be out tomorrow. Discussed chest tube mechanics and waterseal with nurse at bedside. If she has any respiratory distress or acute desaturation overnight, we discussed the plan of checking all of the connections to the chest tube and his apparatus, and if those are secure, can place back to suction emergently if needed. (2) COPD (chronic obstructive pulmonary disease): Status: Acute (3) Lung nodule: Status: Acute (4) Tobacco abuse: Status: Acute
--- NOTE | 2025-01-30 17:52 | PC.NURSE ---
pt is A&Ox4. we placed her chest tube to water seal around 1400. a repeat chest xray was done at 1745. as long as there is no new pneumothorax, the plan is to remove the chest tube in the morning and release to go home. pt has complained of pain throughout this shift but it was lessened by pain meds. pt has no other needs at this time. call light is within reach.
--- NOTE | 2025-01-30 17:54 | XR_ITS ---
PROCEDURE INFORMATION: Exam: XR Chest Exam date and time: 01/30/2025 5:37 PM Age: 64 years old Clinical indication: Device placement; Other: Follow up chest tube on water seal TECHNIQUE: Imaging protocol: Radiologic exam of the chest. Views: 1 view. COMPARISON: CR XR CHEST PORTABLE 01/30/2025 5:57 AM FINDINGS: Tubes, catheters and devices: Stable position of the large bore right apical chest tube. Lungs: Unremarkable. No consolidation. Pleural spaces: No pneumothorax identified. Heart/Mediastinum: Unremarkable. No cardiomegaly. Vasculature: Atherosclerotic plaquing aortic arch. Bones/joints: Unremarkable. Soft tissues: Subcutaneous emphysema right chest wall again demonstrated that is mildly decreased from earlier same day. IMPRESSION: Stable right apical chest tube. No pneumothorax identified. Subcutaneous emphysema right chest wall that is mildly decreased from earlier same day. No new finding.
[2025-01-30] MEDS: PANTOPRAZOLE 40MG TABLET 40 MG PO (20:09)
[2025-01-30] MEDS: FLUOXETINE 20MG CAPSULE 40 MG PO (20:09)
[2025-01-30] MEDS: ATORVASTATIN 10MG TABLET 10 MG PO (20:09)
[2025-01-31] VITALS (15 sets, daily range): BP systolic 128–171; BP diastolic 65–94; PULSE 66–120; RESP 14–18; TEMP 36.7–37.5; O2SAT 91–98; BMI 24.1
[2025-01-31] MEDS: ACETAMINOPHEN 325MG TAB 650 MG PO ×2 (01:57→09:44)
[2025-01-31] MEDS: MORPHINE 4MG/ML SYRINGE 4 MG IV ×3 (04:25→17:36)
--- NOTE | 2025-01-31 05:48 | PC.NURSE ---
Pt. is alert and orientated x 4. Pt is on oxygen 2 liters per N/C. Pt. has a right sided chest tube that is to water seal. Pt. has had a small amount of red bloody drainage from chest tube. No air leak noted. pt. c/o constant pain to site. Pt. having a hard time finding a comfortable position. Pt. medicated per MAR for pain. Pt. up to bedside commode several times to void. Pt. states site hurts to touch. Dressing to right chest clean, dry, intact, and occlusive. Personal items and call harvey in reach. bed in low and locked position. Safety measures in place.
[2025-01-31] MEDS: IPRATROPIUM/ALBUTEROL 3 ML NEB IH ×4 (06:00→23:25)
[2025-01-31] MEDS: KETOROLAC 30MG/ML VIAL 30 MG IV ×2 (06:49→13:22)
--- NOTE | 2025-01-31 07:59 | EXP.PN ---
Subjective *Date: 01/31/25 *Time: 08:40 Interval history: Patient has ongoing chest pain at site of chest tube. She has received morphine Ketorolac and Valium regularly. Pain medicine takes the edge off. She slept minimally. She is anxious to have the chest tube out. She is able to eat. She denies shortness of breath Nurses report no leaks from around the chest tube. 1753 chest x-ray revealed the following: IMPRESSION: Stable right apical chest tube. No pneumothorax identified. Subcutaneous emphysema right chest wall that is mildly decreased from earlier same day. No new finding. Exam Data for Last 24 hours Vital signs and Labs for Last 24 Hours: Temp Pulse Resp BP Pulse Ox O2 Del Method O2 Flow Rate 98.1 F 71 15 171/92 H 94 L Nasal Cannula 2 01/31/25 04:00 01/31/25 06:15 01/31/25 04:00 01/31/25 04:00 01/31/25 06:15 01/31/25 07:00 01/31/25 07:00 FiO2 28 01/29/25 19:08 I & O for Last 24 hours: Intake & Output 01/28/25 01/29/25 01/30/25 01/31/25 11:59 11:59 11:59 11:59 Intake Total 1200 / 1200 680 / 680 1020 / 1020 880 / 880 Output Total 272 / 272 390 / 390 785 / 785 Balance 1200 / 1200 408 / 408 630 / 630 95 / 95 Weight 143 lb 15.989 oz 144 lb 154 lb Constitutional Constitutional: no acute distress Comments: Sitting upright. Appears uncomfortable. *Routine Respiratory Exam Respiratory: Present rhonchi (Few rhonchi posteriorly) Comments: O2 sat satisfactory with her oxygen on. *Routine Cardiovascular Exam Cardiovascular: Present RRR (Heart rate in the 90s) *Routine Abdominal Exam Abdominal: Present soft and normoactive bowel sounds; Absent tenderness *Routine Extremities Exam Extremities: Absent edema or calf tenderness *Routine Neurological Exam Neurological: Present alert and oriented X3 Assessment and Plan *Assessment and plan (1) Pneumothorax: Status: Acute Qualifiers: Pneumothorax type: postprocedural Qualified Code(s): J95.811 - Postprocedural pneumothorax Category: Medical Code(s): J93.9 - Pneumothorax, unspecified (2) COPD (chronic obstructive pulmonary disease): Status: Acute Category: Medical Code(s): J44.9 - Chronic obstructive pulmonary disease, unspecified (3) Lung nodule: Status: Acute Category: Medical Code(s): R91.1 - Solitary pulmonary nodule (4) Tobacco abuse: Status: Acute Category: Medical Code(s): Z72.0 - Tobacco use Plan Surgery to follow with management of the chest tube. Dr. Walsh entry - Saw patient, agree with above note. CXR has been ordered for this morning.
--- NOTE | 2025-01-31 08:32 | P.PNANES_ITS ---
[facility] Anesthesia Record Part II Anesthesia Record Part II Discharge Time: 11:10 Destination: Medical Surgical Department PACU nurse assessment reviewed?: Yes Patient Condition:: Good Anesthesia Complications:: None Swallowing reflex intact?: Yes Airway Patency: Patent Cyanosis?: No Blood Pressure: 158/88 SaO2: 98 Respiratory Rate: 16 Pulse Rate: 86 Temperature: 98.3 F Mental Status: Alert & Oriented Pain level:: 0 Nausea and/or vomitting:: None Intake, IV Amount: 0 Hydration: Adequate
--- NOTE | 2025-01-31 08:34 | XR_ITS ---
FINAL REPORT CLINICAL HISTORY: CHEST TUBE COMPARISON: 01/30/2025 FINDINGS: A portable view of the chest was obtained. The chest tube present in the right hemithorax remains unchanged in position. Cardiac and mediastinal silhouettes are within normal limits. There are increased interstitial markings, not significantly changed. There is a small right apical pneumothorax noted on the current film, with 8 mm of pleural separation in the right apex. IMPRESSION: Chest tube remains present. There is a new small right apical pneumothorax, with 8 mm of pleural separation. Reviewed, Interpreted and Dictated by Lakshmi Miller MD Transcribed by Michelle Salmon Authenticated and [facility]
--- NOTE | 2025-01-31 09:55 | EXP.PULM.PN ---
Subjective *Date: 01/31/25 *Time: 16:02 Interval history: No acute respiratory events over the weekend. Pulmonology Exam Inpatient Vital signs and Labs for Last 24 Hours: Temp Pulse Resp BP Pulse Ox O2 Del Method O2 Flow Rate 98.1 F 94 H 16 128/65 94 L Nasal Cannula 2 01/31/25 07:59 01/31/25 07:59 01/31/25 08:43 01/31/25 07:59 01/31/25 07:59 01/31/25 08:00 01/31/25 08:00 FiO2 28 01/29/25 19:08 Temp Pulse Resp BP Pulse Ox O2 Del Method O2 Flow Rate 97.4 F L 86 20 131/73 98 Nasal Cannula 6 01/28/25 11:31 01/28/25 14:00 01/28/25 14:00 01/28/25 14:00 01/28/25 14:00 01/28/25 14:00 01/28/25 14:00 I & O for Labs for Last 24 Hours: Intake & Output 01/28/25 01/29/25 01/30/25 01/31/25 23:59 23:59 23:59 23:59 Intake Total 1200 / 1440 1420 / 1420 920 / 1160 540 / 540 Output Total 272 / 272 790 / 790 385 / 385 Balance 1200 / 1440 1148 / 1148 130 / 370 155 / 155 Weight 143 lb 15.989 oz 144 lb 154 lb Intake & Output 01/25/25 01/26/25 01/27/25 01/28/25 23:59 23:59 23:59 23:59 Intake Total 1200 / 1200 Balance 1200 / 1200 Constitutional: Present moderate distress Head: Present normocephalic and atraumatic ENT: Present normal exam, normal oropharynx and mucous membranes moist Neck: Present normal inspection and full ROM Respiratory: Present respiratory distress, diminished air movement and able to speak in complete sentences; Absent wheezes or crackles Cardiac: Present S1/S2, Tachycardia and radial pulses present GI: Present soft and distention; Absent tenderness or guarding Rectal (female): Present deferred (female): Present deferred Skin: Present intact; Absent cyanosis or jaundice Neuro: Present alert, awake and oriented x 3 Extremities: Present normal inspection; Absent clubbing or cyanosis Psychiatric: Present normal affect and cooperative Assessment and Plan *Assessment and plan (1) Pneumothorax: Status: Acute Qualifiers: Pneumothorax type: postprocedural Qualified Code(s): J95.811 - Postprocedural pneumothorax Category: Medical Code(s): J93.9 - Pneumothorax, unspecified Plan Ms. Marie is a 64-year-old female greater than [id number] smoking to pulmonary emphysema presented to the hospital for elective transbronchial biopsy procedure experience postprocedure pneumothorax with greater than 2 cm pleural separation worsening respiratory distress, new oxygen requirement and worsening chest pain needing chest tube placement and was admitted to the hospital for further evaluation and management. Interval Update: Status post chest tube placement. No acute respiratory events over the weekend. Improved pneumothorax status post chest tube placement. Chest tube removed this morning by surgery. Stable residual apical pneumothorax. Plan: Follow with surgery recommendations Continue oxygen supplementation to maintain O2 saturation goal of 95% and above DuoNebs every 6 hours on a scheduled basis # MAGGIE bronchoscopy specimen concerning for adenocarcinoma lung. Will follow with final pathology report and follow as an outpatient basis.
[2025-01-31] MEDS: MORPHINE 2MG/ML SYRINGE 2 MG IV (10:00)
--- NOTE | 2025-01-31 10:11 | EXP.SURG.PN ---
Subjective Narrative: Patient complains of discomfort from the chest tube. Exam Data for Last 24 hours Vital signs and Labs for Last 24 Hours: Temp Pulse Resp BP Pulse Ox O2 Del Method O2 Flow Rate 98.1 F 94 H 16 128/65 94 L Nasal Cannula 2 01/31/25 07:59 01/31/25 07:59 01/31/25 08:43 01/31/25 07:59 01/31/25 07:59 01/31/25 08:00 01/31/25 08:00 FiO2 28 01/29/25 19:08 I & O for Last 24 hours: Intake & Output 01/28/25 01/29/25 01/30/25 01/31/25 11:59 11:59 11:59 11:59 Intake Total 1200 / 1200 680 / 680 1020 / 1020 1180 / 1180 Output Total 272 / 272 390 / 390 885 / 885 Balance 1200 / 1200 408 / 408 630 / 630 295 / 295 Weight 143 lb 15.989 oz 144 lb 154 lb Routine Chest/Breast/Axilla Exam Comments: chest tube site clean. Tender at site. Progress Note: A&P Assessment and plan (1) Pneumothorax: Status: Acute Assessment and plan: Has been on waterseal. Tolerated well. No evidence of any air leak. When placing 2 suction no swing or airleak noted. Chest tube therefore removed.
[2025-01-31] MEDS: MILK OF MAGNESIA 30ML UDC 30 ML PO (20:49)
[2025-01-31] MEDS: ATORVASTATIN 10MG TABLET 10 MG PO (20:50)
[2025-01-31] MEDS: PANTOPRAZOLE 40MG TABLET 40 MG PO (20:50)
[2025-01-31] MEDS: FLUOXETINE 20MG CAPSULE 40 MG PO (20:50)
--- NOTE | 2025-01-31 23:30 | PC.NURSE ---
[address] Geiger registration manager for DR Hampton. While assessing the Pt tonmikey she told me her Right Leg hurts. As i was assessing it i ask her about the Pain and she said the Pain was a 6 out of 10 on a scale of 1/10. Also, Pt had not had a BM since 01/27. I asked Dr geiger for something for her bowels. He ordered a Duplex Venous US of the Right Leg. An also ordered 30 ml of Milk of Magnesium. Then at 2114, Dr Walsh called in to just check on this PT. I told him about calling Dr Geiger and the orders i received. I explained to him that she had become tachy since my shift started. 120-130. I read him the pulmonary's plan to him. no new order were received. SHAWN CARROLL RN
[2025-02-01] VITALS: BP 143/87; PULSE 120; PULSE 121; RESP 18; TEMP 37.6; O2SAT 94
[2025-02-01] MEDS: KETOROLAC 30MG/ML VIAL 30 MG IV (02:59)
--- NOTE | 2025-02-01 03:07 | PC.NURSE ---
PT is A&OX4, Heart rate has been elevated all night. Pt has been on 2L of NC O2. c/o pain in her right leg gave 30 mg of IV toradol, for pain of a 6 on a scale of 1/10. Pt has a small amount of drainage on her dressing from the chest tube removal. call light with in reach. SHAWN CARROLL RN
[2025-02-01 04:00] VITALS: BP 150/88; PULSE 100; PULSE 98; RESP 18; TEMP 36.8; O2SAT 96; BMI 24.3
[2025-02-01] MEDS: IPRATROPIUM/ALBUTEROL 3 ML NEB IH (05:51)
[2025-02-01 05:52] VITALS: PULSE 92; PULSE 93; O2SAT 93
--- NOTE | 2025-02-01 06:00 | XR_ITS ---
PROCEDURE INFORMATION: Exam: XR Chest Exam date and time: 02/01/2025 5:34 AM Age: 64 years old Clinical indication: Device placement; Chest tube; Additional info: Chest tube dc'd post day one TECHNIQUE: Imaging protocol: Radiologic exam of the chest. Views: 1 view. COMPARISON: CR XR CHEST PORTABLE 01/31/2025 9:12 AM FINDINGS: Tubes, catheters and devices: Right thoracostomy tube has been retired. Lungs: Chronic interstitial changes noted without consolidation. Pleural spaces: No detectable pneumothorax. Heart/Mediastinum: Unremarkable. No cardiomegaly. Bones/joints: Unremarkable. IMPRESSION: 1. No detectable pneumothorax. 2. Chronic interstitial changes noted without consolidation.
--- NOTE | 2025-02-01 07:40 | EXP.PN ---
Subjective *Date: 02/01/25 *Time: 08:31 Interval history: Patient did sleep some last night. She reports some right chest wall soreness. Chest tube was removed yesterday without difficulty. The severe pain is gone. She reports no shortness of breath. She does have some discomfort in her right posterior thigh.She had a venous Doppler study which she was told was negative. Official report is pending. She has ambulated without difficulty. She is eating well. She is voiding QS. Bowels have not moved but she was given a laxative. Exam Data for Last 24 hours Vital signs and Labs for Last 24 Hours: Temp Pulse Resp BP Pulse Ox O2 Del Method O2 Flow Rate 98.3 F 92 H 18 150/88 H 93 L Nasal Cannula 2 02/01/25 04:00 02/01/25 05:52 02/01/25 04:00 02/01/25 04:00 02/01/25 05:52 02/01/25 06:32 02/01/25 06:32 FiO2 28 01/29/25 19:08 I & O for Last 24 hours: Intake & Output 01/29/25 01/30/25 01/31/25 02/01/25 11:59 11:59 11:59 11:59 Intake Total 680 / 680 1020 / 1020 1180 / 1180 240 / 240 Output Total 272 / 272 390 / 390 885 / 885 1500 / 1500 Balance 408 / 408 630 / 630 295 / 295 -1260 / -1260 Weight 143 lb 15.989 oz 144 lb 154 lb 155 lb Constitutional Constitutional: no acute distress Comments: Has completed breakfast. Assisted up to a chair at bedside independently Routine Chest/Breast/Axilla Exam Chest wall: Present tenderness (Right lateral chest at site of chest tube insertion. Dressing is clean and dry.) *Routine Respiratory Exam Respiratory: Present crackles (Few Crackles on the right.) *Routine Cardiovascular Exam Cardiovascular: Present RRR (Sinus rhythm with a rate ranging in the 90s to low 100s) *Routine Abdominal Exam Abdominal: Present soft and normoactive bowel sounds; Absent tenderness *Routine Extremities Exam Extremities: Present pulses intact and tenderness (Right posterior thigh. No palpable masses.); Absent edema or calf tenderness *Routine Neurological Exam Neurological: Present alert and oriented X3 Assessment and Plan *Assessment and plan (1) Pneumothorax: Status: Acute Qualifiers: Pneumothorax type: postprocedural Qualified Code(s): J95.811 - Postprocedural pneumothorax Category: Medical Code(s): J93.9 - Pneumothorax, unspecified (2) COPD (chronic obstructive pulmonary disease): Status: Acute Category: Medical Code(s): J44.9 - Chronic obstructive pulmonary disease, unspecified (3) Lung nodule: Status: Acute Category: Medical Code(s): R91.1 - Solitary pulmonary nodule (4) Tobacco abuse: Status: Acute Category: Medical Code(s): Z72.0 - Tobacco use Plan AM chest x-ray and right leg ultrasound results are pending. Patient hopes to go home today. Dr. Walsh entry -Saw patient, agree with above note.
[2025-02-01 07:42] VITALS: BP 130/70; PULSE 96; RESP 19; TEMP 36.8; O2SAT 96
[2025-02-01 08:00] VITALS: PULSE 90
[2025-02-01 12:00] VITALS: BP 158/85; PULSE 100; PULSE 103; RESP 20; TEMP 36.8; O2SAT 96
--- NOTE | 2025-02-01 12:59 | PC.NURSE ---
Spoke with MD Walsh about surgical and pulmonary consults. Called MD Bagley office to verify if was coming to see pt per Nico's request.
--- NOTE | 2025-02-01 13:10 | EXP.SURG.PN ---
Subjective Narrative: No issues. Patient anxious to go home. Exam Data for Last 24 hours Vital signs and Labs for Last 24 Hours: Temp Pulse Resp BP Pulse Ox O2 Del Method O2 Flow Rate 98.3 F 103 H 20 158/85 H 96 Room Air 2 02/01/25 12:00 02/01/25 12:00 02/01/25 12:00 02/01/25 12:00 02/01/25 12:00 02/01/25 12:51 02/01/25 09:00 FiO2 28 01/29/25 19:08 I & O for Last 24 hours: Intake & Output 01/30/25 01/31/25 02/01/25 02/02/25 11:59 11:59 11:59 11:59 Intake Total 1020 / 1020 1180 / 1180 540 / 540 360 / 360 Output Total 390 / 390 885 / 985 1500 / 1500 0 / 0 Balance 630 / 630 295 / 195 -960 / -960 360 / 360 Weight 144 lb 154 lb 155 lb Routine Chest/Breast/Axilla Exam Comments: Chest tube site dressed Progress Note: A&P Assessment and plan (1) Pneumothorax: Status: Acute Assessment and plan: Chest x-ray with no pneumothorax after chest tube removed yesterday. May change dressing every day or 2. Follow-up with Dr. Rangel in a week to inspect chest tube site and remove remaining suture. (2) COPD (chronic obstructive pulmonary disease): Status: Acute (3) Lung nodule: Status: Acute (4) Tobacco abuse: Status: Acute
--- NOTE | 2025-02-01 20:31 | CA_ITS ---
FINAL REPORT CLINICAL HISTORY: Right lateral thigh pain. Pt has pneumothorax been hospitalized and in bed since Friday. COMPARISON: None FINDINGS: DUPLEX VENOUS SONOGRAPHY OF THE RIGHT LOWER EXTREMITY Multiple transverse and longitudinal scans were performed of the femoropopliteal deep venous system, with augmentation and compression maneuvers. HISTORY: Pain FINDINGS: Normal phasic flow was noted in the visualized deep venous system. No intraluminal increased echogenicity is noted to suggest thrombus. There is normal compression and augmentation of the venous structures. No abnormal venous collaterals are seen. IMPRESSION: No evidence of deep venous thrombosis of the right lower extremity. Reviewed, Interpreted and Dictated by Lakshmi Miller MD Transcribed by Michelle Salmon Authenticated and [facility]
--- NOTE | 2025-02-02 09:59 | SW/DCPLANNER ---
Spoke with patient on the phone. Patient stated that she is sore and feels like her right side is useless. Patient stated that she is aware of her upcoming appointments. Patient stated that she is sore and in pain from the chest tube. Suggested that patient call her PCP to see if they can give her something for pain. Patient stated that she has no concerns or questions at this time. Shanell George
--- NOTE | 2025-02-14 17:46 | EXP.DC.SUM ---
General Admission date:: 01/28/25 Discharge date: 02/01/25 HPI HPI HPI: Ms. Marie is a 64-year-old female greater than 64-[id number] smoking and pulmonary emphysema who presented to the hospital for elective transbronchial biopsy procedure and experienced postprocedure pneumothorax with greater than 2 cm pleural separation, worsening respiratory distress, new oxygen requirement, and worsening chest pain needing chest tube placement and was admitted to the hospital for further evaluation and management. (above as per Pulmonology) Her chest tube has been placed and she is in a lot of pain. She denies any SOA. Hospital Course Hospital Course Hospital Course: The patient's chest x-ray showed a right pneumothorax and a chest tube was placed. She was started on supplemental oxygen and DuoNebs and was given morphine for pain. By 01/29/2025, there was a tiny apical pneumothorax which persisted. By , she was satting well on minimal nasal oxygen. Repeat chest x-ray showed no pneumothorax. The chest tube was placed to waterseal. She continued with ongoing pain at the chest tube site and received pain medication. There was no evidence of air leak with the waterseal and the chest tube was able to be removed. She was stable to be discharged home. Exam Data for Last 24 hours Vital signs and Labs for Last 24 Hours: Temp Pulse Resp BP Pulse Ox O2 Del Method O2 Flow Rate 98.3 F 103 H 20 158/85 H 96 Room Air 2 02/01/25 12:00 02/01/25 12:00 02/01/25 12:00 02/01/25 12:00 02/01/25 12:00 02/01/25 12:51 02/01/25 09:00 FiO2 28 01/29/25 19:08 Narrative: Constitutional Constitutional: mild distress (Patient is in a lot of pain with elevated BP) *Routine HEENT Exam Head: Present normocephalic and atraumatic Eye: Present EOMI and PERRL ENT: Present mucous membranes dry *Routine Neck Exam Neck: Present supple and full ROM *Routine Respiratory Exam Respiratory: Present CTA bilaterally (Chest tube in place on the right side) *Routine Cardiovascular Exam Cardiovascular: Present RRR *Routine Abdominal Exam Abdominal: Present soft and normoactive bowel sounds; Absent tenderness *Routine Rectal Exam Rectal:: deferred *Routine Genitalia Exam Genitalia:: deferred *Routine Extremities Exam Extremities: Absent cyanosis, clubbing or edema *Routine Skin Exam Skin: Present intact; Absent erythema *Routine Neurological Exam Neurological: Present alert and oriented X3 DS: Diagnosis Discharge Diagnosis (1) Pneumothorax: Status: Resolved Code(s): J93.9 - Pneumothorax, unspecified Qualifiers: Pneumothorax type: postprocedural Qualified Code(s): J95.811 - Postprocedural pneumothorax (2) COPD (chronic obstructive pulmonary disease): Status: Acute Code(s): J44.9 - Chronic obstructive pulmonary disease, unspecified (3) Lung nodule: Status: Acute Code(s): R91.1 - Solitary pulmonary nodule (4) Tobacco abuse: Status: Acute Code(s): Z72.0 - Tobacco use Meds Home Medications and Allergies Home Medications ?Medication ?Instructions ?Recorded ?Confirmed ?Type fluoxetine 40 mg capsule 40 mg PO HS 12/05/23 02/11/25 History rosuvastatin 10 mg tablet 10 mg PO HS 12/05/23 02/11/25 History albuterol sulfate 90 mcg/actuation 2 inh inhalation QID PRN shortness 12/27/24 02/11/25 Rx aerosol inhaler (Ventolin HFA) of breath or wheezing 90 days #8.5 grams meloxicam 15 mg tablet 15 mg PO HS 12/27/24 02/11/25 History glycopyrrolate 9 mcg-formoterol 2 puff inhalation BID 90 days 02/03/25 02/11/25 Rx 4.8 mcg HFA aerosol inhaler #10.7 grams (Bevespi Aerosphere) ipratropium 0.5 mg-albuterol 3 mg 3 ml inhalation Q8H 3 months #540 02/04/25 02/11/25 Rx (2.5 mg base)/3 mL nebulization mL soln New Prescriptions to Start Prescriptions: Allergies Allergy/AdvReac Type Severity Reaction Status Date / Time No Known Allergies Allergy Verified 02/11/25 10:50 Discharge Plan Disposition Patient Disposition: Home, Self-Care Condition: Fair Discharge Order Discharge Orders: Discharge Order (Routine); Ordered 02/01/25 Ordered By: Jona Walsh Follow up Plan Follow up with: Ava Jimenez MD [Physician, Pulmonology] - 02/07/25 10:20 Ricky Miller MD [Staff Physician, General Surgery] - 02/10/25 11:00 am Prescriptions/Medication Reconciliation: Continued meloxicam 15 mg tablet 15 mg PO HS Patient Comments: TAKE ONE TABLET BY MOUTH ONCE DAILY albuterol sulfate [Ventolin HFA] 90 mcg/actuation HFA aerosol inhaler 2 inh inhalation QID PRN (Reason: shortness of breath or wheezing) 90 Days Qty: 8.5 3RF fluoxetine 40 mg capsule 40 mg PO HS Patient Comments: TAKE ONE CAPSULE BY MOUTH EVERY DAY rosuvastatin 10 mg tablet 10 mg PO HS Patient Comments: TAKE ONE TABLET BY MOUTH EVERY DAY AT BEDTIME No Action Bevespi Aerosphere 9-4.8 mcg HFA aerosol inhaler 2 puff inhalation BID 90 Days Qty: 10.7 3RF ipratropium-albuterol 0.5 mg-3 mg(2.5 mg base)/3 mL solution for nebulization 3 ml inhalation Q8H 90 Days Qty: 540 3RF Problem Reconciliation Problems Reviewed?: Yes Patient Discharge Instructions ACTIVITY: Continue current activity DIET: continue same diet Patient Instructions: High-Calorie, High-Protein Diet, DI for Pneumothorax, DI for Bronchoscopy, Diagnostic, DI for General Anesthesia, DI for Surgical Site Infection, DI for Chest Tube Insertion Print Language: Indonesian Providers Primary Care Provider: Doug Montalvo Admit Provider: Jona Walsh Attending Provider: Jona Walsh
== END 2025-02-01 14:13 | disposition home or self-care (01) | DRG 168 ==
LOC: 2ND 14:06
PROVIDERS: Internal Medicine Pulmonary Disease; Admitting Provider Family Medicine; PCP Family Medicine; Visit Provider Family Medicine
PROC: 0BDC8ZX Extraction of Right Upper Lung Lobe, Via Natural or Artificial Opening Endoscopic, Diagnostic (ICD-10-PCS; CPT 31624; principal; 2025-01-28 07:30)
DX: J95.811 Postprocedural pneumothorax (principal); J43.9 Emphysema, unspecified; E78.5 Hyperlipidemia, unspecified; F17.210 Nicotine dependence, cigarettes, uncomplicated; R91.8 Other nonspecific abnormal finding of lung field; R91.1 Solitary pulmonary nodule; Z79.899 Other long term (current) drug therapy
CPT/HCPCS: 31624; 31628; 31629; 31627; 31654; 31653; 36415; 71045; 76000; 80048; 85025; 88112; 88173; 88305; 93971; 94640; 94760; 94761; J1100; J1200; J1650; J1885; J2003; J2250; J2270; J2371; J2405; J2704; J3010; J7120